=== PATIENT | female | born 1990 | race Caucasian/White ===

== ENCOUNTER 2021-04-21 09:00 | Outpatient (CLI) | payer MEDICAID, SELFPAY ==
[2021-04-21] VITALS (40 sets, daily range): BP systolic 85–208; BP diastolic 49–133; PULSE 71–117; RESP 17–18; TEMP 36.2–36.9; O2SAT 89–100; BMI 42.0
--- NOTE | 2021-04-21 09:27 | US_ITS ---
WS: [id number] ULTRASOUND OB LIMITED TECHNIQUE: Limited ultrasound examination of the fetus. CLINICAL INFORMATION: no FHT COMPARISON: None. FINDINGS: No heart tones detected. Single interuterine gestation. presentation is cephalic Placental location is posterior. Placenta grade: 2 heart rate 0 BPM. Anatomy: BDP: 9.0 cm = 36w2d HC: 32.4 cm = 36w4d AC: 29.1 cm = 33w1d FEMUR LENGTH: 6.7 cm = 34w4d Estimated weight: 2364 g EGA by ultrasound: 35w1d AMEENA by ultrasound: 05/25/2021 US/US OB limited [id number] IMPRESSION: 1. No heart tones detected. 2. Paucity of amniotic fluid. 3. Cervix is unable to be imaged. 4. Posterior placenta with cephalic presentation. Gas Station Attendant discussed preliminary results with the OB nurse at the time of exam ination.
[2021-04-21] MEDS: dextrose 5%-lactated ringers 1,000 ML 125 ML IV (10:51)
[2021-04-21 10:59] LABS: Basophils % 0.2 %; Eosinophils # 0.1 10^3/uL (0.0-0.8); Eosinophils % 0.6 %; Hematocrit 32.6 % (37.0-47.0); Hemoglobin 10.1 g/dL (11.5-15.3); Lymphocytes # 1.5 10^3/uL (0.8-4.8); Mean Corpuscular Hemoglobin 26.6 pg (28.0-34.0); Mean Corpuscular Volume 85.8 fL (81-99); Monocytes # 0.8 10^3/uL (0.2-0.9); Monocytes % 6.6 %; Neutrophils # 10.13 10^3/uL (1.8-7.7); Neutrophils % 80.2 %; Nucleated Red Blood Cells % 0.2 %; Platelet Count 211 10^3/cmm (130-400); Red Cell Distribution Width 14.1 % (12.1-15.1); White Blood Count 12.6 10^3/uL (4.0-10.0)
[2021-04-21] MEDS: miSOPROStol 200 mcg Tablet VAGINAL (10:59)
[2021-04-21] MEDS: fentaNYL 50 mcg/mL INJ 2mL IVP (10:59)
[2021-04-21] MEDS: lactated ringers 1,000 ML 999 ML IV (12:03)
[2021-04-21] MEDS: oxytocin 30 UNIT/500 ML BAG IV (13:00)
--- NOTE | 2021-04-21 13:20 | P.ANESASSM_ITS ---
Pre-Anesthetic Assessment Pre-Anesthetic Assessment: Height/Weight: Height 1.7 m Weight 121.563 kg Pulse Resp BP Pulse Ox 73 18 85/49 100 04/21/21 13:18 04/21/21 10:59 04/21/21 13:18 04/21/21 12:33 Was Beta Canelo taken within 24 hours: N/A Was Clonidine taken within 24 hours: N/A Social: Social History: No alcohol and No tobacco Exam: Pre-Anes Outpt Exam: alert, oriented x 3, clear to auscultation bilaterally and regular rate & rhythm Airway: Submandibular: WNL Cervical ROM: WNL MP: 2 Dentition: Full Metabolic: Metabolic: Morbid obesity Anesthetic Plan: ASA status: 2 Anesthesia: Regional (specify below) (labor epidural) Risk of > 500 ml blood loss (7ml/kg in children): No Meds/Allergies Current Medications: Current Medications Generic Name Dose Route Start Last Admin Trade Name Freq PRN Reason Stop Dose Admin Fentanyl 25 - 100 mcg 04/21/21 10:46 04/21/21 10:59 Fentanyl 50 Mcg/ Ml Inj 2ml IVP 50 mcg Q1H PRN Administration SEVERE PAIN Dextrose/Lactated Ringer's 1,000 mls @ 125 m ls/hr 04/21/21 10:30 04/21/21 10:51 Dextrose 5%-Lact ated Ringers IV 125 mls/hr .Q8H BI Administration Ropivacaine 200 mg in 100 mls @ 13 mls/hr 04/21/21 11:45 04/21/21 12:03 Naropin Premix EPIDURAL 13 mls/hr .Q7H42M BI Administration Lactated Ringer's 1,000 mls @ 999 m ls/hr 04/21/21 11:44 04/21/21 12:03 Lactated Ringers IV 999 mls/hr .Q1H1M PRN Administration See label comment s Oxytocin 30 unit in 500 ml s @ 1 mls/hr 04/21/21 13:00 04/21/21 13:00 Pitocin IV 2 milliunit/min .Q24H BI 2 mls/hr Administration Protocol 1 MILLIUNIT/MIN PFSH Anesthesia Female Reproductive History: : 4 Data Anesthesia CBC & Chem 7: 04/21/21 10:30 Other Labs: Laboratory Results - last 48 hr 04/21/21 10:30 WBC 12.6 H RBC 3.80 L Hgb 10.1 L Hct 32.6 L MCV 85.8 MCH 26.6 L MCHC 31.0 RDW 14.1 Plt Count 211 MPV 10.0 Neut % (Auto) 80.2 Lymph % (Auto) 12.0 [place] % (Auto) 6.6 Eos % (Auto) 0.6 Baso % (Auto) 0.2 Neut # (Auto) 10.13 H Lymph # (Auto) 1.5 [place] # (Auto) 0.8 Eos # (Auto) 0.1 Baso # (Auto) 0.0 Nucleated RBC % (auto) 0.2 Nucleated RBCs # 0.0 Cardiac Studies: No Data to Display
--- NOTE | 2021-04-21 13:20 | ANES.PROC ---
Anesthesia Procedures Procedure/Date: 04/21/21 Epidural: Time Out Performed: Yes Consents Signed: Procedure Consent Consent: requested by attending/covering physician, from patient, risks and benefits reviewed and patient agrees to proceed Lumbar Level: L3-L4 Epidural position: sitting Epidural procedure: sterile prep of area, 1% lidocaine to numb the area, 18 g needle, neg for paresthesia, test dose given, 1.5% xylocaine 1:200k epi, placed PCEA, sterile dressing applied and 0.2% Ropiavacaine @ mls/hr (13) Additional Comments: RAMÓN at 6cm, cath at 11cm. 5mls 2% lido PF bolused.
[2021-04-21] MEDS: ondansetron 2 mg/ML SDV 2 mL 4 MG IVP (13:21)
--- NOTE | 2021-04-21 13:50 | PC.NURSE ---
2nd IV STARTED IN LEFT FOREARM WITH #20 JELCO.
--- NOTE | 2021-04-21 14:18 | P.PCNOB_ITS ---
Delivery Note: Date of delivery: April 21, 2021 this 30-year-old female at approximately 36 weeks gestation came in this morning with cramping and bleeding. She was found to have no heart tones and no movement. She actually had been seen yesterday for an ultrasound which was read as negative and approximately 36 weeks gestation. A full ultrasound demonstrated no obvious abruption or other sign of problems. However, the placenta was posterior and difficult to tell for sure. She did have some moderate bleeding throughout the labor process. After supination of benefits and risks, the patient was given Pitocin intravenously for induction. She quickly dilated to complete cervical dilatation and delivered a male with a very tight nuchal cord. There were no abnormalities noted on examination of the infant except for the tight cord. The infant had blanching but no peeling of skin. Upon delivery of the placenta however there was large clots on the underside of the placenta indicating a probable abruption. I strongly suspect that this was the cause of the demise. The patient will be monitored for 2 to 3 hours. If she is not bleeding heavily and is ambulating well, she will be allowed to be discharged home this evening if she desires. Pre-Delivery Course: This patient had a very late entry into care. As her periods are very irregular she was unsure that she was until recently. She saw this physician 2 weeks ago for initial visit and as she was felt to be further along than she felt she was by dates and ultrasound was ordered. This was performed yesterday with no abnormal findings. Will check her blood type and antibody screen and provide RhoGam if necessary. Delivery: Spontaneous vaginal delivery Post-Delivery Status: Patient is not actively bleeding at this time and appears to be doing well. She is presently holding the baby and will be planning on proper burial. Will reevaluate later this afternoon and probably discharge patient home if she is doing well and she desires to be discharged home. A&P Assessment and plan (1) demise > 22 weeks, delivered, current hospitalization: It is suspected that the demise was secondary to acute placental abruption. Status: Acute (2) Spontaneous vaginal delivery: The patient delivered by vaginal delivery without problems using epidural anesthesia. There was no lacerations and no other problems at this time. She will be followed for routine care and she wishes to wait to go home until morning. Status: Acute Coding Level of Care Code Acute Brewer Helper for Chg Fwd Diagnoses demise > 22 weeks, delivered, current hospitalization O36.4XX0 Spontaneous vaginal delivery O80
[2021-04-21] MEDS: docusate sodium 100 mg Capsule PO (17:53)
[2021-04-21] MEDS: ibuprofen 800 mg tablet PO (18:02)
[2021-04-21] MEDS: HYDROcodone-acetaminophen 5-325 mg Tablet PO (18:03)
== END 2021-04-21 20:48 | disposition home or self-care (01) ==
LOC: OPOB 09:04 → OBGYN 09:05
PROVIDERS: Visit Provider Family Medicine
DX: O36.4XX0 Maternal care for intrauterine death, not applicable or unspecified (principal); Z3A.36 36 weeks gestation of pregnancy; Z37.1 Single stillbirth; O69.81X0 Labor and delivery complicated by cord around neck, without compression, not applicable or unspecified
CPT/HCPCS: 36415; 51702; 59409; 76815; 85025; 88307; 96374; 96375; 99211; J2405; J2795; J3010

== ENCOUNTER → 2023-04-22 16:00 | Outpatient (BNVA) | payer MEDICAID, SELFPAY | PROVIDERS: Visit Provider Obstetrics & Gynecology | DX: Z30.09 Encounter for other general counseling and advice on contraception (principal); N92.6 Irregular menstruation, unspecified | CPT/HCPCS: 81025 ==

== ENCOUNTER 2023-04-24 05:39 | Day surgery (SDC) | payer MEDICAID, SELFPAY ==
[2023-04-23 13:20] VITALS: BMI 35.4
--- NOTE | 2023-04-23 13:41 | P.ANESASSM_ITS ---
Pre-Anesthetic Assessment Height/Weight: Height 1.7 m Weight 102.512 kg Operation Date: 04/24/23 07:00 Proposed Procedures p Laparoscopic bilateral salpingectomy 69550,Z30.2(Bilateral) - Chauncey Franz MD Familial anesthetic complications: none Social Tobacco and No alcohol Exam alert, oriented x 3, clear to auscultation bilaterally and regular rate & rhythm Airway Mallampati: Class III Dentition: full GI Gastroesophageal Reflux Disease Metabolic Morbid Obesity Anesthetic Plan ASA status: 2 Anesthesia: General Risk of > 500 ml blood loss (7ml/kg in children): No Medications/Allergies Home Medications Medication Instructions Recorded Confirmed Last Taken Type alprazolam 0.5 mg tablet 0.5 mg PO DAILY 03/12/23 04/23/23 1 Day Ago History ~04/22/23 omeprazole 20 mg capsule,delayed 20 mg PO DAILY 03/12/23 04/23/23 1 Day Ago History release ~04/22/23 sertraline 100 mg tablet 100 mg PO DAILY 03/12/23 04/23/23 1 Day Ago History ~04/22/23 Allergies Allergy/AdvReac Type Severity Reaction Status Date / Time No Known Allergies Allergy Verified 04/23/23 13:18 [facility] Anesthesia Family History Denies family history of Colon cancer Ovarian cancer Diabetes Heart disease Hypercholesteremia Breast cancer Hypertension Uterine cancer Thyroid disease Stroke Data Anesthesia 04/23/23 13:20 04/23/23 13:20 Cardiac Studies: No Data to Display
[2023-04-23 13:43] LABS: Basophils % 0.7 %; Eosinophils # 0.3 10^3/uL (0.0-0.8); Eosinophils % 6.3 %; Hematocrit 32.5 % (37.0-47.0); Hemoglobin 9.1 g/dL (11.5-15.3); Lymphocytes # 1.4 10^3/uL (0.8-4.8); Lymphocytes % 33.3 %; Mean Corpuscular Volume 74.9 fl (81-99); Mean Platelet Volume 9.3 fL (7.4-10.4); Monocytes # 0.4 10^3/uL (0.2-0.9); Monocytes % 8.2 %; Neutrophils # 2.18 10^3/uL (1.8-7.7); Neutrophils % 51.3 %; Nucleated Red Blood Cells % 0 %; Platelet Count 207 10^3/cmm (130-400); Red Blood Count 4.34 10^6/uL (4.1-5.3); Red Cell Distribution Width 16.8 % (12.1-15.1); White Blood Count 4.3 10^3/uL (4.0-10.0)
[2023-04-23 13:47] LABS: OR HCG Qualitative Urine Negative (Negative)
[2023-04-23 14:01] LABS: Alanine Aminotransferase 17 U/L (0-33); Albumin Level 4.4 g/dL (3.5-5.2); Alkaline Phosphatase 93 U/L (35-105); Anion Gap 13.9 (5-19); Aspartate Amino Transferase 23 U/L (0-32); Blood Urea Nitrogen 9 mg/dL (6-20); Calcium 8.9 mg/dL (8.5-10.5); Carbon Dioxide 24 mmol/L (22-29); Chloride 103 mmol/L (98-107); Globulin 3.1 g/dL (1.3-4.6); Glomerular Filtration Rate 96.4 mL/min (90-130); Glucose 113 mg/dL (65-115); Osmolality Calculated 283 mOsm/kg (285-295); Potassium 3.9 mmol/L (3.5-5.1); Sodium 137 mmol/L (136-145); Total Bilirubin 0.9 mg/dL (0.15-1.2); Total Protein 7.5 g/dL (6.6-8.7)
[2023-04-23 14:17] LABS: Add Urine Microscopic? NO; Charge for UA Resulting for Rev
[2023-04-23 14:24] LABS: Specific Gravity, Urine 1.025 (1.005-1.030); Urine Appearance Clear (CLEAR); Urine Color Yellow (Yellow); pH Urine 6 (5-7)
[2023-04-23 14:25] LABS: Bilirubin Urine Neg (Negative); Blood Urine Neg (Negative); Glucose Urine UA Norm (Normal); Ketones Urine Negative (Negative); Leukocyte Esterase Urine Negative (Negative); Nitrate Urine Negative (Negative); Protein Urine Neg (Negative); Urobilinogen Urine 1 mg/dL (Negative)
[2023-04-24] VITALS (11 sets, daily range): BP systolic 106–146; BP diastolic 63–99; PULSE 80–91; RESP 15–21; TEMP 36.2–36.3; O2SAT 90–97
[2023-04-24] MEDS: scopolamine 1.5 Patch 1 PATCH TRANSDERMA (06:13)
[2023-04-24] MEDS: sodium chloride 0.9% 500 ML IV (06:14)
[2023-04-24] MEDS: sodium chloride 0.9% 1,000 ML 30 ML IV (06:14)
--- NOTE | 2023-04-24 06:38 | P.ANESUD_ITS ---
Pre-Anesthetic Update Pre-Anesthetic Assessment: Date of Surgery/Procedure: 04/24/23 Preop Miley gnosis: Desire permanent sterilization Proposed Procedure: Operation Date: 04/24/23 07:00 Proposed Procedures p Laparoscopic bilateral salpingectomy 43866,Z30.2(Bilateral) - Chauncey Franz MD Any changes to Pre-Anesthetic Assessment?: No Last Intake: Intake Last Liquid Date 04/23/23 Last Liquid Time 23:45 Last Solid Date 04/23/23 Last Solid Time 23:45 Labs Last 48hrs: Short CBC 04/23/23 Range/Units 13:20 WBC 4.3 (4.0-10.0) 10^3/ uL Hgb 9.1 L (11.5-15.3) g/dL Hct 32.5 L (37.0-47.0) % MCV 74.9 L (81-99) fl Plt Count 207 (130-400) 10^3/c mm Neut % (Auto) 51.3 % Neut # (Auto) 2.18 (1.8-7.7) 10^3/u L BMP 04/23/23 13:20 Sodium 137 Potassium 3.9 Chloride 103 Carbon Dioxide 24 BUN 9 Creatinine 0.7 Glucose 113 Calcium 8.9 Liver Function 04/23/23 Range/Units 13:20 Total Bilirubin 0.9 (0.15-1.2) mg/dL AST 23 (0-32) U/L ALT 17 (0-33) U/L Alkaline Phosphata se 93 (35-105) U/L Albumin 4.4 (3.5-5.2) g/dL Urine 04/23/23 Range/Units 13:35 Urine Color Yellow (Yellow) Urine Appearance Clear (CLEAR) Urine pH 6 (5-7) Ur Specific Gravit y 1.025 (1.005-1.030) Urine Protein Neg (Negative) Urine Glucose (UA) Norm (Normal) Urine Ketones Negative (Negative) Urine Nitrate Negative (Negative) Urine Bilirubin Neg (Negative) Ur Leukocyte Kareen ase Negative (Negative) Blood Bank 04/23/23 13:20 Blood Type O Positive Rho(D) Type Positive Antibody Screen Negative Vitals: Temperature 97.3 F L 04/24/23 06:07 Temperature Source Temporal Artery S can 04/24/23 06:07 Pulse Rate 80 04/24/23 06:07 Respiratory Rate 16 04/24/23 06:07 Blood Pressure 106/63 04/24/23 06:07 Blood Pressure Caroline n 77 04/24/23 06:07 Pulse Oximetry 97 04/24/23 06:07 Oxygen Delivery Me thod Room Air 04/24/23 06:08 Exam: Pre-Anes Outpt Exam: alert, oriented x 3, clear to auscultation bilaterally and regular rate & rhythm Cardiac Studies: No Data to Display
[2023-04-24 06:42] LABS: OR HCG Qualitative Urine Negative (Negative)
--- NOTE | 2023-04-24 06:52 | W.PM.OPSUD ---
Surgery/Procedure H&P Update DATE OF PROCEDURE: April 24, 2023 DATE H&P PERFORMED: 04/22/23 H&P UPDATE INFORMATION: I have reviewed H&P completed within last 30 days, I have examined patient prior to procedure and No changes to prior documentation PREOP DIAGNOSIS: Desire permanent sterilization PLANNED PROCEDURE: Operation Date: 04/24/23 07:00 Proposed Procedures p Laparoscopic bilateral salpingectomy 23224,Z30.2(Bilateral) - Chauncey Franz MD
[2023-04-24] MEDS: ceFAZolin 2,000 MG in sodium chloride 0.9% (plus) 50 ML 100 MG IV (07:00)
--- NOTE | 2023-04-24 08:05 | P.OP_ITS ---
Operative Report Date of procedure: April 24, 2023 Pre-op diagnosis: Desire permanent sterilization. Post-op diagnosis: Same as above. Mild endometriosis Post-op findings: 4 small lesions arteriosus on the left round ligament Procedure done: Laparoscopic bilateral salpingectomy. Fulguration of endometriosis lesions. Specimens removed/disposition: Left and right fallopian tube Surgeon: Chauncey Frnaz MD Estimated blood loss (mL): 5 IV fluids (mL): 500 Urine output (mL): 50 Complications: None Findings: Mild endometriosis Procedure: After informed consent, the patient was taken to the operating room where general anesthesia was administered. She was placed in the dorsal lithotomy position and prepped and draped in sterile fashion. Pre-Procedure Time-Out verifying the correct patient identity, correct procedure verified with consent, correct site and side, correct patient position, availability of correct implants and any special equipment or requirements was performed and acknowledge by the OR team. The patient was examined under anesthesia and found to have a normal uterus with normal adnexa. A weighted speculum was placed in the vagina, and the anterior lip of cervix was grasped with the single toothed tenaculum. A uterine manipulator was advanced into the endocervical canal and uterus. The tenaculum was removed after uterine manipulator was secured. The speculum was removed from the vagina. An intraumbilical incision was made with a scalpel. While tenting up on the abdomen, a Verres needle was admitted into the intra-abdominal cavity. A saline drop test was performed and noted to be within normal limits. Pneumoperitoneum was attained with 4 liters of carbon dioxide. The Verres needle was removed. A 5 mm Opitc view trocar and sleeve were admitted into the abdomen and laparoscopic confirmation of location was achieved. A second incision was made 3 cm above the symphysis pubis, and a 5 mm trocar sleeves were admitted into the abdomen under direct laparoscopic visualization without complication. A survey revealed normal abdominal anatomy with the exception of string adhesion to the right lower anterior abdominal wall. A 5 mm blunt probe was advanced through the second trocar sleeve, and light manipulation of ovaries and uterus to assess the posterior aspects was performed. The pelvic survey shows normal uterus, left and right adnexa. The left round ligament noted with 4 endometriosis lesions. The lesions where grasped with the Enseal device and where fulgurated. The patient was placed into Trendelenburg position. The fallopian tubes were i nspected bilaterally and the fimbriated ends of the fallopian tubes were visualized bilaterally. Attention was then directed to the right side. The fallopian tube and mesosalpinx were grasped and the underlying mesosalpinx was cauterized and cut using the Enseal device. Serial cauterization and cutting was used to separate the fallopian tube from the underlying mesosalpinx until it could be amputated cutting it approximated 2 cm from the cornua. Attention was then turned to the contralateral fallopian tube, which was removed in similar fashion. Both specimens were removed through the trocar and sent to pathology. The instruments were removed. The suprapubic trocar port was removed under direct visualization insuring good hemostasis. The carbon dioxide was allowed to escape from the abdomen. The intraumbilical trocar sleeve was withdrawn under visualization with laparoscope in the sleeve to insure hemostasis. The skin incisions were closed with 3-O Monocryl subcuticular stich and Guillermo mabond. The instruments were removed from the vagina, and excellent hemostasis was noted. The patient tolerated the procedure well, and sponge, lap and needle count were correct times two. The patient was taken to the recovery room in good condition.
--- NOTE | 2023-04-24 13:22 | ANE.PACU2 ---
Inpatient post-anesthesia follow up: Airway intact: Yes Vital signs: Temperature 97.2 F Pulse Rate 91 Respiratory Rate 16 Blood Pressure 137/99 Pulse Oximetry 95 Oxygen Delivery Me thod Room Air Oxygen Flow Rate 6 Fraction of Inspir ed Oxygen Hydration adequate: Yes Nausea and vomiting: Yes Pain level: 1 Mental status: Baseline
== END 2023-04-24 09:46 | disposition home or self-care (01) ==
PROVIDERS: Anesthesiology; PCP Family Medicine; Visit Provider Obstetrics & Gynecology
PROC: (CPT 58661; principal; 2023-04-24 07:00)
DX: Z30.2 Encounter for sterilization (principal); K21.9 Gastro-esophageal reflux disease without esophagitis; E66.01 Morbid (severe) obesity due to excess calories; Z68.35 Body mass index [BMI] 35.0-35.9, adult
CPT/HCPCS: 58661; 58662; 80053; 81003; 81025; 84703; 85025; 86850; 86900; 88302; J0690; J1100; J1200; J2250; J2405; J2704; J2710; J3010; J3490; J7030; J7040

== ENCOUNTER 2023-06-16 11:57 | Emergency (ER) | payer MEDICAID, SELFPAY ==
[2023-06-16 12:39] VITALS: BP 119/86; PULSE 100; RESP 12; TEMP 36.8; O2SAT 99; BMI 29.7
--- NOTE | 2023-06-16 12:44 | ED_ITS ---
HPI - Abdominal Pain General: Chief Complaint: Abdominal Pain Stated Complaint: severe stomach ache Time Seen by Provider: 06/16/23 12:44 History of Present Illness: Ms Adames is a 32-year-old lady presenting the emergency department for epigastric abdominal pain. Describes onset of symptoms subacute without known specific provoking event 3 days ago. Initially just had constant pain however starting last night had worsening pain and nausea vomiting as well as diarrhea. Denies fevers. Worse with eating. Moderate to severe intensity. No other specific changes in health, exacerbating, or alleviating factors identified. Onset (ago): day(s) Location: Epigastric Radiation: none Migration to: no migration Exacerbating factors: eating Review of Systems General: Reports: 10 or more systems reviewed and unremarkable except in HPI and below PFSH ED PFSH: Medical History Mild endometriosis (~04/24/23) Noted on the left round ligament at the time of laparoscopy for sterilization; incidental finding- Albino No pertinent past medical history neghx: htn,dm,thyroid,dvt/pe PCP: Dr. Nascimento Surgical History History of laparoscopy (~04/24/23) bilateral salpingectomy- performed by Dr. Franz at [facility]; mild endometriosis noted and treated. Family History Denies family history of Colon cancer Ovarian cancer Diabetes Heart disease Hypercholesteremia Breast cancer Hypertension Uterine cancer Thyroid disease Stroke Physical Exam Const: COMMON NORMALS: alert GENERAL APPEARANCE: cooperative and well developed HENMT: COMMON NORMALS: normocephalic and atraumatic HEAD & SCALP: normocephalic and atraumatic Eye: COMMON NORMALS: conjunctivae normal CONJUNCTIVA: Yes conjunctivae normal SCLERA: sclerae normal Neck/C-Spine: COMMON NORMALS: supple GENERAL: Yes trachea midline Resp: COMMON NORMALS: normal respiratory effort and clear to auscultation bilaterally EFFORT & INSPECTION: Yes able to speak in complete sentences AUSCULTATION: clear to auscultation bilaterally Cardio: COMMON NORMALS: regular rate and regular rhythm RATE: regular rate RHYTHM: regular rhythm GI: COMMON NORMALS: Soft to palpation PALPATION: Yes Soft to palpation, Yes Tenderness to palpation present (GI), No Guarding due to palpation present (GI) and No Rigid due to palpation Extremity: GENERAL: Yes normal exam except as noted and No edema Neuro: COMMON NORMALS: moves all extremities SENSORIUM/ORIENTATION: Yes alert and No Orientation impaired Psych: COMMON NORMALS: mental status grossly normal and Normal thought process present THOUGHT PROCESS: Normal thought process present Course Vital Signs: Vital signs: Vital Signs Temperature 98.2 F 06/16/23 12:39 Pulse Rate 85 06/16/23 15:23 Respiratory Rate 18 06/16/23 14:37 Blood Pressure 115/83 06/16/23 14:37 Pulse Oximetry 98 06/16/23 15:23 Oxygen Delivery Me thod Room Air 06/16/23 14:37 MDM - Abdominal Pain Medical Decision Making 32-year-old lady presenting with epigastric abdominal pain. Exam as above. Nontoxic. Abdominal tenderness without evidence of acute surgical abdomen. Labs with no leukocytosis, microcytic anemia. Metabolic panel with mild evidence of dehydration. Lipase is somewhat elevated. No convincing evidence of UTI though this will be sent for culture. Gallbladder ultrasound with minimal gallbladder sludge however no evidence of cholecystitis. Patient improved with treatment during ED course of IV fluids, antiemetic, Pepcid, analgesia. She is able to tolerate p.o. intake. The results of ED evaluation were discussed with the patient including pr escriptions and/or symptomatic cares (if applicable) including appropriate and responsible use, followup plan, and return precautions. The patient verbalized understanding and felt safe for discharge. Medical Records I reviewed the patient's medical records. Lab Data I reviewed the patient's lab results. 06/16/23 12:57 06/16/23 12:57 Labs/Radiology: Radiology Impressions Gallbladder Ultrasound 06/16/23 13:44 IMPRESSION: Suggestion of minimal gallbladder sludge and exam is otherwise unremarkable. Laboratory Results WBC 6.5 10^3/uL (4.0-10.0) 06/16/23 12:57 RBC 4.05 10^6/uL (4.1-5.3) L 06/16/23 12:57 Hgb 8.2 g/dL (11.5-15.3) L 06/16/23 12:57 Hct 29.0 % (37.0-47.0) L 06/16/23 12:57 MCV 71.6 fl (81-99) L 06/16/23 12:57 MCH 20.2 pg (28.0-34.0) L 06/16/23 12:57 MCHC 28.3 g/dL (30.0-36.0) L 06/16/23 12:57 RDW 17.0 % (12.1-15.1) H 06/16/23 12:57 Plt Count 263 10^3/cmm (130-400) 06/16/23 12:57 MPV 9.3 fL (7.4-10.4) 06/16/23 12:57 Neut % (Auto) 67.8 % 06/16/23 12:57 Lymph % (Auto) 19.4 % 06/16/23 12:57 [place] % (Auto) 7.7 % 06/16/23 12:57 Eos % (Auto) 4.3 % 06/16/23 12:57 Baso % (Auto) 0.5 % 06/16/23 12:57 Neut # (Auto) 4.42 10^3/uL (1.8-7.7) 06/16/23 12:57 Lymph # (Auto) 1.3 10^3/uL (0.8-4.8) 06/16/23 12:57 [place] # (Auto) 0.5 10^3/uL (0.2-0.9) 06/16/23 12:57 Eos # (Auto) 0.3 10^3/uL (0.0-0.8) 06/16/23 12:57 Baso # (Auto) 0.0 10^3/uL (0.0-0.1) 06/16/23 12:57 Nucleated RBC % (auto) 0 % 06/16/23 12:57 Nucleated RBCs # 0.0 /100WBC 06/16/23 12:57 Sodium 134 mmol/L (136-145) L 06/16/23 12:57 Potassium 4.1 mmol/L (3.5-5.1) 06/16/23 12:57 Chloride 99 mmol/L (98-107) 06/16/23 12:57 Carbon Dioxide 23 mmol/L (22-29) 06/16/23 12:57 Anion Gap 16.1 (5-19) 06/16/23 12:57 BUN 6 mg/dL (6-20) 06/16/23 12:57 Creatinine 0.7 mg/dL (0.5-0.9) 06/16/23 12:57 GFR Calculation 96.4 mL/min (90-130) 06/16/23 12:57 Glucose 107 mg/dL (65-115) 06/16/23 12:57 Calculated Osmolality 276 mOsm/kg (285-295) L 06/16/23 12:57 Calcium 8.5 mg/dL (8.5-10.5) 06/16/23 12:57 Total Bilirubin 0.3 mg/dL (0.15-1.2) 06/16/23 12:57 AST 17 U/L (0-32) 06/16/23 12:57 ALT 14 U/L (0-33) 06/16/23 12:57 Alkaline Phosphatase 104 U/L (35-105) 06/16/23 12:57 Total Protein 6.4 g/dL (6.6-8.7) L 06/16/23 12:57 Albumin 3.0 g/dL (3.5-5.2) L 06/16/23 12:57 Globulin 3.4 g/dL (1.3-4.6) 06/16/23 12:57 Lipase 169 U/L (13-60) H 06/16/23 12:57 Urine Color Yellow (Yellow) 06/16/23 13:03 Urine Appearance Sl hazy (CLEAR) A 06/16/23 13:03 Urine pH 5 (5-7) 06/16/23 13:03 Ur Specific [place] 1.020 (1.005-1.030) 06/16/23 13:03 Urine Protein Trace (Negative) 06/16/23 13:03 Urine Glucose (UA) Norm (Normal) 06/16/23 13:03 Urine Ketones 1+ (Negative) H 06/16/23 13:03 Urine Blood Neg (Negative) 06/16/23 13:03 Urine Nitrate Negative (Negative) 06/16/23 13:03 Urine Bilirubin Neg (Negative) 06/16/23 13:03 Urine Urobilinogen Norm mg/dL (Negative) 06/16/23 13:03 Ur Leukocyte Esterase Trace (Negative) H 06/16/23 13:03 Urine RBC None /hpf (0-2) 06/16/23 13:03 Urine WBC 0-4 /hpf (0-5) H 06/16/23 13:03 Ur Squamous Epith Cells 0-4 /hpf (0-5) H 06/16/23 13:03 Amorphous Sediment Not Reportable 06/16/23 13:03 Urine Bacteria 2+ /hpf (NONE) H 06/16/23 13:03 Urine Mucus 2+ /hpf 06/16/23 13:03 Discharge Plan Discharge Patient Disposition: Home Clinical Impression: Pancreatitis, Microcytic anemia Condition: Stable Prescriptions: New ondansetron 4 mg tablet,disintegrating 4 mg PO Q8H PRN (Reason: nausea and vomiting) Qty: 15 0RF oxycodone 5 mg tablet 5 mg PO Q4H PRN (Reason: pain) Qty: 10 0RF No Action sertraline 100 mg tablet 100 mg PO DAILY omeprazole 20 mg capsule,delayed release(DR/EC) 20 mg PO DAILY alprazolam 0.5 mg tablet 0.5 mg PO DAILY ibuprofen 800 mg tablet 800 mg PO TID PRN (Reason: pain) Qty: 60 0RF prednisone 20 mg tablet 20 mg PO BID 7 Days Qty: 14 0RF ciprofloxacin HCl 500 mg tablet 500 mg PO BID Qty: 14 0RF metronidazole 500 mg tablet 500 mg PO Q8H 7 Days Qty: 21 0RF hydrocodone-acetaminophen 5-325 mg tablet 1 tab PO Q6H PRN (Reason: pain (scale score 7-10)) Qty: 14 0RF ondansetron 4 mg tablet,disintegrating 4 mg PO Q8H PRN (Reason: nausea and vomiting) Qty: 10 0RF Discharge Orders: Discharge ED (Routine); Ordered 06/16/23 Ordered By: Davian Sanders Referrals: Kendrick Nascimento MD [Primary Care Provider] - Discharge Diet: Advance as tolerated and Clear Liquid Discharge Activity: Increase activity as tolerated Patient Instructions: Pancreatitis (ED), Anemia (ED), Opioid Safety Activity Restrictions/Additional Instructions: Thank you for visiting the emergency department. You were seen and evaluated for abdominal pain. The most likely cause of your symptoms is pancreatitis. We are pleased that you had improvement with treatment in the emergency department. As discussed, treatment is supportive. I will prescribe oxycodone, use this cautiously as it is an opioid. Additionally I will prescribe antinausea medication. You may use [id number] medications such as acetaminophen and ibuprofen for pain however please do not exceed the daily recommended dosage as listed on the packaging and please keep in mind that many namebrand medications contain the same active ingredients. Please avoid these medications if previously instructed to do so by another physician due to other underlying medical condition. Follow-up with your primary care provider. Return for uncontrolled symptoms, inability to tolerate medication, fevers, blood in vomit or stool, or anything else that you are concerned about and feel needs emergency department evaluation. Coding Level of Care Code ED Orthodontic Technician Assistant for Syd Ramirez
[2023-06-16 12:49] VITALS: BP 129/67; PULSE 88; RESP 18; O2SAT 98
[2023-06-16 13:07] LABS: Basophils % 0.5 %; Eosinophils # 0.3 10^3/uL (0.0-0.8); Eosinophils % 4.3 %; Hemoglobin 8.2 g/dL (11.5-15.3); Lymphocytes # 1.3 10^3/uL (0.8-4.8); Lymphocytes % 19.4 %; Mean Corpuscular HGB Conc 28.3 g/dL (30.0-36.0); Mean Corpuscular Hemoglobin 20.2 pg (28.0-34.0); Mean Corpuscular Volume 71.6 fl (81-99); Mean Platelet Volume 9.3 fL (7.4-10.4); Monocytes # 0.5 10^3/uL (0.2-0.9); Monocytes % 7.7 %; Neutrophils # 4.42 10^3/uL (1.8-7.7); Neutrophils % 67.8 %; Nucleated Red Blood Cells % 0 %; Platelet Count 263 10^3/cmm (130-400); Red Blood Count 4.05 10^6/uL (4.1-5.3); White Blood Count 6.5 10^3/uL (4.0-10.0)
[2023-06-16] MEDS: ondansetron 2 mg/ML SDV 2 mL 4 MG IVP (13:20)
[2023-06-16] MEDS: lactated ringers 1,000 ML 999 ML IV (13:20)
[2023-06-16] MEDS: morphine 4 mg/mL SDV 1 mL IVP (13:21)
[2023-06-16] MEDS: famotidine 20 mg/2 mL INJ 40 MG IVP (13:21)
[2023-06-16 13:23] VITALS: BP 120/90; PULSE 91; RESP 18; O2SAT 100
[2023-06-16 13:33] LABS: Glucose Urine UA Norm (Normal); Ketones Urine 1+ (Negative); Protein Urine Trace (Negative); Urine Appearance SL Hazy (CLEAR); Urine Color Yellow (Yellow); pH Urine 5 (5-7)
[2023-06-16 13:34] LABS: Add Urine Microscopic? YES; Bilirubin Urine Neg (Negative); Blood Urine Neg (Negative); Leukocyte Esterase Urine Trace (Negative); Nitrate Urine Negative (Negative); Urobilinogen Urine Norm (Negative)
[2023-06-16 13:35] LABS: Squamous Epithelial Cell Urine 0-4 /hpf (0-5); WBC Urine 0-4 /hpf (0-5)
[2023-06-16 13:36] LABS: Bacteria Urine 2+ /hpf; Mucus Urine 2+ /hpf
[2023-06-16 13:37] LABS: Alanine Aminotransferase 14 U/L (0-33); Alkaline Phosphatase 104 U/L (35-105); Anion Gap 16.1 (5-19); Aspartate Amino Transferase 17 U/L (0-32); Blood Urea Nitrogen 6 mg/dL (6-20); Calcium 8.5 mg/dL (8.5-10.5); Carbon Dioxide 23 mmol/L (22-29); Chloride 99 mmol/L (98-107); Globulin 3.4 g/dL (1.3-4.6); Glomerular Filtration Rate 96.4 mL/min (90-130); Glucose 107 mg/dL (65-115); Lipase 169 U/L (13-60); Osmolality Calculated 276 mOsm/kg (285-295); Potassium 4.1 mmol/L (3.5-5.1); Sodium 134 mmol/L (136-145); Total Bilirubin 0.3 mg/dL (0.15-1.2); Total Protein 6.4 g/dL (6.6-8.7)
[2023-06-16 13:37] LABS: Add Urine Culture? Yes
--- NOTE | 2023-06-16 13:44 | USR_ITS ---
PROCEDURE INFORMATION: Exam: US Abdomen, Limited; Right Upper Quadrant Exam date and time: 06/16/2023 2:06 PM Age: 32 years old Clinical indication: Abdominal pain; Epigastric; Additional info: Epigastric pain TECHNIQUE: Imaging protocol: Real time ultrasound of the abdomen with image documentation. Limited exam focused on the right upper quadrant. COMPARISON: US OB limited [id number] 04/21/2021 9:58 AM FINDINGS: Liver: Normal. No masses. Hepatopetal portal venous flow. Liver measures 16.9 cm. Gallbladder: No gallstones. There is no gallbladder wall thickening. Minimal sludge. Biliary ducts: No stones within the visualized common bile duct. No dilation. Common bile duct measures 3.5 mm. Pancreas: Visualized pancreas is unremarkable. Right kidney: Normal. No mass. No hydronephrosis. Right kidney measures 10.4 x 4.7 x 4.7 cm. Inferior vena cava: Visualized aorta and inferior vena cava appear unremarkable. US/US gall bladder [id number] IMPRESSION: Suggestion of minimal gallbladder sludge and exam is otherwise unremarkable.
[2023-06-16 14:37] VITALS: BP 115/83; PULSE 92; RESP 18; O2SAT 97
[2023-06-16 15:23] VITALS: PULSE 85; O2SAT 98
== END 2023-06-16 15:24 | disposition home or self-care (01) ==
PROVIDERS: Emergency Provider Emergency Medicine; PCP Family Medicine
DX: K85.90 Acute pancreatitis without necrosis or infection, unspecified (principal); D50.9 Iron deficiency anemia, unspecified
CPT/HCPCS: 76705; 80053; 81001; 83690; 85025; 87086; 96361; 96374; 96375; 99284; J2270; J2405; J3490; J7120

== ENCOUNTER 2023-06-23 16:36 | Emergency (ER) | payer MEDICAID, SELFPAY ==
[2023-06-23 16:43] VITALS: BP 106/72; PULSE 131; RESP 16; TEMP 36.7; O2SAT 100; BMI 28.1
--- NOTE | 2023-06-23 17:29 | ED_ITS ---
HPI - Abdominal Pain General: Chief Complaint: Abdominal Pain Stated Complaint: weakness/abd pain Time Seen by Provider: 06/23/23 17:29 History of Present Illness: 32-year-old female comes in today with complaints of nausea and vomiting. Patient was seen about a week ago and was diagnosed with pancreatitis and it was also noticed patient has some sludge on her gallbladder. Patient appears unwell and in mild to moderate pain. Patient has a history of reflux and anxiety. Patient does have her gallbladder and reports no other abdominal surgeries. Patient reports poor appetite and difficulty holding food down. Associated Symptoms: Reports nausea and vomiting; Denies constipation and diarrhea Review of Systems General: Reports: 10 or more systems reviewed and unremarkable except in HPI and below GI: Reports: abdominal pain, nausea and vomiting; Denies: diarrhea or constipation : Denies: difficulty voiding Skin/Breast: Denies: rash PFSH ED PFSH: Medical History Mild endometriosis (~04/24/23) Noted on the left round ligament at the time of laparoscopy for sterilization; incidental finding- Osei No pertinent past medical history neghx: htn,dm,thyroid,dvt/pe PCP: Dr. Nascimento Surgical History History of laparoscopy (~04/24/23) bilateral salpingectomy- performed by Dr. Franz at [facility]; mild endometriosis noted and treated. Family History Denies family history of Colon cancer Ovarian cancer Diabetes Heart disease Hypercholesteremia Breast cancer Hypertension Uterine cancer Thyroid disease Stroke Physical Exam Const: COMMON NORMALS: alert HENMT: COMMON NORMALS: normocephalic HEAD & SCALP: normocephalic Neck/C-Spine: COMMON NORMALS: full ROM Chest: COMMONS NORMALS: normal inspection of the chest Resp: COMMON NORMALS: normal respiratory effort and clear to auscultation bilaterally AUSCULTATION: clear to auscultation bilaterally Cardio: COMMON NORMALS: regular rate and regular rhythm RATE: regular rate RHYTHM: regular rhythm GI: COMMON NORMALS: Soft to palpation PALPATION: Yes Soft to palpation and Yes Tenderness to palpation present (GI) (Generalized) Extremity: COMMON NORMALS: normal to inspection Neuro: SENSORIUM/ORIENTATION: Yes alert Skin: COMMON NORMALS: turgor normal GENERAL SKIN EXAM: turgor normal Course Vital Signs: Vital signs: Vital Signs Temperature 98.0 F 06/23/23 16:43 Pulse Rate 104 H 06/23/23 17:59 Respiratory Rate 16 06/23/23 17:59 Blood Pressure 105/70 06/23/23 17:59 Pulse Oximetry 98 06/23/23 17:59 Oxygen Delivery Me thod Room Air 06/23/23 17:59 MDM - Abdominal Pain Medical Decision Making 32-year-old female comes in today with complaints of persistent nausea and vomiting. Patient was diagnosed last week with pancreatitis. Review of the record noted a lipase of 160 and ultrasound of the gallbladder with noted sludge. Remainder of labs were unremarkable at that time. Exam today notes patient that appears unwell but not toxic. Abdomen soft with some mild tenderness. Bowel sounds are present. Skin is warm and dry. Oral mucosa slightly dry. Vital signs are normal except for some elevated pulse. Differential diagnosis includes but not limited to choledocholithiasis, pancreatitis, dehydration, cholelithiasis, cholecystitis, gastroenteritis. Laboratory values noted some elevation in white blood cells at 12,000, platelets of 597, hemoglobin was 8.1, sodium was 130, creatinine was 1.3, glucose was 159, bilirubin was 0.3, lipase was 90. No signs of biliary obstruction or severe pancreatitis was noted. CT scan was done for further evaluation of the abdomen and was noted patient had pancolitis. Pancolitis is probably what is causing patient's chronic anemia and recurrent abdominal pain, she probably has undiagnosed Crohn's or ulcerative colitis other autoimmune illness or celiac disease. Patient will be started on steroids and antibiotics and medications for pain and nausea. Patient needs to follow-up with with surgeon for further evaluation with colonoscopy and biopsy. Patient and mother both reported understanding of care plan and need for follow-up or return to the ER. Lab Data 06/23/23 17:40 06/23/23 17:40 Labs/Radiology: Radiology Impressions Abdomen/Pelvis CT 06/23/23 18:32 IMPRESSION: 1. Nonspecific pancolitis, as described above. 2. Additional findings, as above. Laboratory Results WBC 12.3 10^3/uL (4.0-10.0) H 06/23/23 17:40 RBC 4.06 10^6/uL (4.1-5.3) L 06/23/23 17:40 Hgb 8.1 g/dL (11.5-15.3) L 06/23/23 17:40 Hct 28.6 % (37.0-47.0) L 06/23/23 17:40 MCV 70.4 fl (81-99) L 06/23/23 17:40 MCH 20.0 pg (28.0-34.0) L 06/23/23 17:40 MCHC 28.3 g/dL (30.0-36.0) L 06/23/23 17:40 RDW 16.9 % (12.1-15.1) H 06/23/23 17:40 Plt Count 597 10^3/cmm (130-400) H 06/23/23 17:40 MPV 9.2 fL (7.4-10.4) 06/23/23 17:40 Neut % (Auto) 71.6 % 06/23/23 17:40 Lymph % (Auto) 16.5 % 06/23/23 17:40 [place] % (Auto) 8.6 % 06/23/23 17:40 Eos % (Auto) 1.5 % 06/23/23 17:40 Baso % (Auto) 0.7 % 06/23/23 17:40 Neut # (Auto) 8.78 10^3/uL (1.8-7.7) H 06/23/23 17:40 Lymph # (Auto) 2.0 10^3/uL (0.8-4.8) 06/23/23 17:40 [place] # (Auto) 1.1 10^3/uL (0.2-0.9) H 06/23/23 17:40 Eos # (Auto) 0.2 10^3/uL (0.0-0.8) 06/23/23 17:40 Baso # (Auto) 0.1 10^3/uL (0.0-0.1) 06/23/23 17:40 Nucleated RBC % (auto) 0.2 % 06/23/23 17:40 Nucleated RBCs # 0.0 /100WBC 06/23/23 17:40 Sodium 130 mmol/L (136-145) L 06/23/23 17:40 Potassium 3.6 mmol/L (3.5-5.1) 06/23/23 17:40 Chloride 93 mmol/L (98-107) L 06/23/23 17:40 Carbon Dioxide 24 mmol/L (22-29) 06/23/23 17:40 Anion Gap 16.6 (5-19) 06/23/23 17:40 BUN 9 mg/dL (6-20) 06/23/23 17:40 Creatinine 1.3 mg/dL (0.5-0.9) H 06/23/23 17:40 GFR Calculation 47.2 mL/min (90-130) L 06/23/23 17:40 Glucose 159 mg/dL (65-115) H 06/23/23 17:40 Calculated Osmolality 272 mOsm/kg (285-295) L 06/23/23 17:40 Calcium 8.2 mg/dL (8.5-10.5) L 06/23/23 17:40 Total Bilirubin 0.3 mg/dL (0.15-1.2) 06/23/23 17:40 AST 25 U/L (0-32) 06/23/23 17:40 ALT 19 U/L (0-33) 06/23/23 17:40 Alkaline Phosphatase 106 U/L (35-105) H 06/23/23 17:40 Total Protein 6.4 g/dL (6.6-8.7) L 06/23/23 17:40 Albumin 2.6 g/dL (3.5-5.2) L 06/23/23 17:40 Globulin 3.8 g/dL (1.3-4.6) 06/23/23 17:40 Lipase 90 U/L (13-60) H 06/23/23 17:40 HCG, Qual Negative (Negative) 06/23/23 17:40 Discharge Plan Discharge Patient Disposition: Home Clinical Impression: Pancolitis, Microcytic anemia Condition: Stable Prescriptions: New prednisone 20 mg tablet 20 mg PO BID 7 Days Qty: 14 0RF ciprofloxacin HCl 500 mg tablet 500 mg PO BID Qty: 14 0RF metronidazole 500 mg tablet 500 mg PO Q8H 7 Days Qty: 21 0RF hydrocodone-acetaminophen 5-325 mg tablet 1 tab PO Q6H PRN (Reason: pain (scale score 7-10)) Qty: 14 0RF ondansetron 4 mg tablet,disintegrating 4 mg PO Q8H PRN (Reason: nausea and vomiting) Qty: 10 0RF No Action sertraline 100 mg tablet 100 mg PO DAILY omeprazole 20 mg capsule,delayed release(DR/EC) 20 mg PO DAILY alprazolam 0.5 mg tablet 0.5 mg PO DAILY ibuprofen 800 mg tablet 800 mg PO TID PRN (Reason: pain) Qty: 60 0RF ondansetron 4 mg tablet,disintegrating 4 mg PO Q8H PRN (Reason: nausea and vomiting) Qty: 15 0RF oxycodone 5 mg tablet 5 mg PO Q4H PRN (Reason: pain) Qty: 10 0RF Discharge Orders: Discharge ED (Routine); Ordered 06/23/23 Ordered By: Danielito Foley Referrals: Kendrick Nascimento MD [Primary Care Provider] - Discharge Diet: Usual diet Discharge Activity: Increase activity as tolerated Patient Instructions: Colitis (ED), Opioid Safety, Pain Management Activity Restrictions/Additional Instructions: Take medication as directed. Drink plenty of water and fluids. Maintain a clear liquid diet until pain resolves. Then increase to a bland diet such as bananas, rice, apples, boiled chicken. Follow-up with surgeon for further evaluation with colonoscopy. Also talk with surgeon about gallbladder sludge and consideration of surgery for removal. Return to ER for worsening symptoms such as high fever, blood in vomit or stool, or new concerns. Coding Level of Care Code ED Grape [employer]her for Syd Ramirez
[2023-06-23 17:49] LABS: Basophils # 0.1 10^3/uL (0.0-0.1); Basophils % 0.7 %; Eosinophils # 0.2 10^3/uL (0.0-0.8); Eosinophils % 1.5 %; Hematocrit 28.6 % (37.0-47.0); Hemoglobin 8.1 g/dL (11.5-15.3); Lymphocytes % 16.5 %; Mean Corpuscular HGB Conc 28.3 g/dL (30.0-36.0); Mean Corpuscular Volume 70.4 fl (81-99); Mean Platelet Volume 9.2 fL (7.4-10.4); Monocytes # 1.1 10^3/uL (0.2-0.9); Monocytes % 8.6 %; Neutrophils # 8.78 10^3/uL (1.8-7.7); Neutrophils % 71.6 %; Nucleated Red Blood Cells % 0.2 %; Platelet Count 597 10^3/cmm (130-400); Red Blood Count 4.06 10^6/uL (4.1-5.3); Red Cell Distribution Width 16.9 % (12.1-15.1); White Blood Count 12.3 10^3/uL (4.0-10.0)
[2023-06-23] MEDS: ondansetron 2 mg/ML SDV 2 mL 4 MG IVP (17:53)
[2023-06-23] MEDS: fentaNYL 50 mcg/mL INJ 2mL 80 MCG IVP (17:54)
[2023-06-23] MEDS: sodium chloride 0.9% 1,000 ML 999 ML IV (17:54)
[2023-06-23] MEDS: lactated ringers 1,000 ML 999 ML IV (17:54)
[2023-06-23 17:59] VITALS: BP 105/70; PULSE 104; RESP 16; O2SAT 98
[2023-06-23 18:15] LABS: HCG, Serum Qual Negative (Negative)
[2023-06-23 18:20] LABS: Alanine Aminotransferase 19 U/L (0-33); Albumin Level 2.6 g/dL (3.5-5.2); Alkaline Phosphatase 106 U/L (35-105); Anion Gap 16.6 (5-19); Aspartate Amino Transferase 25 U/L (0-32); Blood Urea Nitrogen 9 mg/dL (6-20); Calcium 8.2 mg/dL (8.5-10.5); Carbon Dioxide 24 mmol/L (22-29); Chloride 93 mmol/L (98-107); Globulin 3.8 g/dL (1.3-4.6); Glomerular Filtration Rate 47.2 mL/min (90-130); Glucose 159 mg/dL (65-115); Osmolality Calculated 272 mOsm/kg (285-295); Potassium 3.6 mmol/L (3.5-5.1); Sodium 130 mmol/L (136-145); Total Bilirubin 0.3 mg/dL (0.15-1.2); Total Protein 6.4 g/dL (6.6-8.7)
--- NOTE | 2023-06-23 18:32 | CTR_ITS ---
PROCEDURE INFORMATION: Exam: CT Abdomen And Pelvis With Contrast Exam date and time: 06/23/2023 6:38 PM Age: 32 years old Clinical indication: Abdominal pain; Localized; Patient HX: Upper abd pain with nausea; Additional info: Pancreatitis TECHNIQUE: Imaging protocol: Computed tomography of the abdomen and pelvis with contrast. Axial, coronal and sagittal reformatted images were created and reviewed. Radiation optimization: All CT scans at this facility use at least one of these dose optimization techniques: automated exposure control; mA and/or kV adjustment per patient size (includes targeted exams where dose is matched to clinical indication); or iterative reconstruction. Contrast material: OMNI 350; Contrast volume: 75 ml; Contrast route: INTRAVENOUS (IV); REPORTING DATA: Count of CT and Cardiac NM exams in prior 12 months: This patient has received 0 known CTs and 0 known cardiac nuclear medicine studies in the 12 months prior to the current study. COMPARISON: CR XR KUB [id number] 11/11/2017 2:44 PM RADIATION DOSE METRICS: Total DLP (mGy-cm): 910.14 FINDINGS: Lungs: Minimal dependent atelectatic change at the lung bases. Liver: Mild hepatomegaly. Gallbladder and bile ducts: No radiodense gallstones. No biliary ductal dilatation. Pancreas: Unremarkable. Spleen: Unremarkable. Adrenal glands: Normal. No mass. Kidneys and ureters: Nonobstructing left renal calculus. No hydronephrosis. Stomach and bowel: Diffuse colonic wall thickening with associated mural and pericolonic edema. No obstruction. No pneumatosis. Appendix: Normal. Intraperitoneal space: No free fluid. No organized fluid collection. No free air. Vasculature: Unremarkable. No aneurysm. Lymph nodes: Small mesenteric and pericolonic lymph nodes, likely reactive. No pathologically enlarged lymph nodes. Urinary bladder: Unremarkable as visualized. Reproductive: Probable involuting left ovarian corpus luteal cyst. Bones/joints: No acute osseous abnormality. Mild degenerative changes. Soft tissues: Small, fat containing umbilical hernia. CT/CT abdomen pelvis w con* [id number] IMPRESSION: 1. Nonspecific pancolitis, as described above. 2. Additional findings, as above.
[2023-06-23] MEDS: iohexol 350 mg/mL 500 mL Btl (per mL) IV (18:38)
[2023-06-23] MEDS: metoclopramide 5 mg/mL SDV 2 mL 10 MG IVP (19:05)
[2023-06-23 19:07] LABS: Lipase 90 U/L (13-60)
[2023-06-23] MEDS: HYDROmorphone 1 mg/mL INJ 1 mL IVP (19:07)
[2023-06-23] MEDS: pantoprazole 40 mg SDV 80 MG IVP (19:09)
[2023-06-23] MEDS: dexamethasone 10 mg/mL INJ IVP (19:30)
[2023-06-23] MEDS: ciprofloxacin 400 MG/200 ML PREMIX 200 MG IV (19:34)
[2023-06-23] MEDS: metroNIDAZOLE IV 500 MG/100 ML PREMIX 100 MG IV (19:44)
[2023-06-23 20:00] VITALS: BP 116/65
--- NOTE | 2023-06-23 20:14 | PC.NURSE ---
PT SENT HOME WITH 4MG ZOFRAN AND NORCO 10/325 PER HOME HEALTH CARE CASE MANAGER ORDERS.
[2023-06-23] MEDS: HYDROmorphone 1 mg/mL INJ 1 mL 0.5 MG IVP (20:53)
--- NOTE | 2023-06-24 09:49 | DCPLANNER ---
Addendum entered by Glory Ramachandran 07/04/23 09:31: Patient did attend this appointment. Addendum entered by Glory Ramachandran 06/26/23 12:16: Patient has a follow up appointment scheduled for Sunday, July 02, [address]23 at 2:[address] Sanchez at general surgery. Original Note: distribution warehouse manager had message to schedule a follow up appointment for patient with general surgery. distribution warehouse manager sent patients information to the front office staff at general surgery. Patients information will be printed and reviewed. Clinic will call patient with appointment information.
== END 2023-06-23 21:00 | disposition home or self-care (01) ==
PROVIDERS: Emergency Provider Nurse Practitioner Family; PCP Family Medicine
DX: K51.00 Ulcerative (chronic) pancolitis without complications (principal); D50.9 Iron deficiency anemia, unspecified
CPT/HCPCS: 36415; 74177; 80053; 83690; 84703; 85025; 96365; 96367; 96375; 96376; 99285; C9113; J0744; J1100; J1170; J2405; J2765; J3010; J3490; J7030; J7120; Q9967

== ENCOUNTER 2023-07-10 07:32 | Inpatient (IN) | payer MEDICAID, SELFPAY ==
[2023-07-10] VITALS (72 sets, daily range): BP systolic 85–151; BP diastolic 42–90; PULSE 90–132; RESP 14–42; TEMP 36.8–37.4; O2SAT 93–100; BMI 31.3
--- NOTE | 2023-07-10 07:51 | ED_ITS ---
Documented by User: AISHWARYA Snider 07/10/23 10:18 HPI - General Adult General: Chief complaint: Weakness Stated complaint: no energy,dizzy,headache Time Seen by Provider: 07/10/23 07:34 Source: patient and family (Mother) Mode of arrival: ambulatory Limitations: no limitations History of Present Illness: Patient is a 32-year-old female who presents to the emergency department complaining of worsening fatigue, dizziness, and headache. Patient was seen and evaluated in the emergency department on 06/23 for epigastric pain/bloody stools and was found to be anemic and discharged with a consult with surgery. CT scan at the time showing pancolitis. She saw Dr. Sanchez on 07/02 and was subsequently scheduled for an EGD/colonoscopy on 08/21 of this year. For the past 1.5 weeks she states she has gotten increasingly dizzy with a headache, has been short of breath, and has still noted blood in her stool. She also notes feeling generally unwell, and states that she has not been able to get into see a primary physician to discuss her recent visits. She denies any fever, but states that her appetite has been significantly suppressed. Her epigastric abdominal pain is still present but she states that it has not radiated anywhere and has remained constant over the past few weeks. She denies any pain with defecation, vomiting, chest pain, palpitations, or any other symptoms. She underwent a laparoscopic bilateral salpingectomy approximately 2 months ago for sterilization but otherwise no other surgical history. Onset (ago): week(s) (1.5) Location: abdomen Radiation: non-radiation Severity: moderate Pain Consistency: constant Relieving factors: none Exacerbating factors: none Associated symptoms: Reports dyspnea, headache(s) and malaise; Deny chest pain, confusion, nausea, rash, palpitations, syncope or vomiting Treatments prior to arrival: none Review of Systems Const: Reports: change in appetite, fatigue and malaise; Denies: fever(s) or chills Eyes: Denies: change in vision or blurry vision Card: Denies: chest pain, palpitations, irregular heart rhythm, edema, lightheadedness, syncope or pre-syncope Resp: Reports: dyspnea; Denies: productive cough, pain on inspiration, hemoptysis or chest congestion GI: Reports: abdominal pain, hematochezia and melena; Denies: nausea, vomiting, heartburn or diarrhea : Denies: flank pain, difficulty voiding, dysuria, urinary frequency, urinary urgency or urinary hesitancy Musc: Denies: neck pain, back pain, extremity pain, extremity swelling or joint pain Skin/Breast: Denies: rash Neuro: Reports: headache(s) and dizziness; Denies: numbness in extremities, weakness in extremities, sensory changes, lack of coordination, difficulty walking, frequent falls or confusion PFSH ED PFSH: Medical History Mild endometriosis (~04/24/23) Noted on the left round ligament at the time of laparoscopy for sterilization; incidental finding- Osei No pertinent past medical history neghx: htn,dm,thyroid,dvt/pe PCP: Dr. Nascimento Surgical History History of laparoscopy (~04/24/23) bilateral salpingectomy- performed by Dr. Franz at [facility]; mild endometriosis noted and treated. Family History Denies family history of Colon cancer Ovarian cancer Diabetes Heart disease Hypercholesteremia Breast cancer Hypertension Uterine cancer Thyroid disease Stroke Social History Smoking and tobacco status: former smoker Alcohol intake: current Alcohol intake frequency: holidays/special occasions only Physical Exam Const: COMMON NORMALS: no acute distress, patient oriented x3, no limitations, alert and well nourished GENERAL APPEARANCE: cooperative, ill appearing and other (pale) NUTRITIONAL APPEARANCE: overweight ORIENTATION/CONSCIOUSNESS: Yes awake, Yes oriented to person, Yes oriented to place and Yes oriented to time HENMT: COMMON NORMALS: normocephalic and atraumatic HEAD & SCALP: normal to inspection, normocephalic and atraumatic Eye: COMMON NORMALS: no scleral icterus Neck/C-Spine: COMMON NORMALS: full ROM, no lymphadenopathy, supple and no meningeal signs Chest: COMMONS NORMALS: normal inspection of the chest Resp: COMMON NORMALS: normal respiratory effort and clear to auscultation bilaterally AUSCULTATION: clear to auscultation bilaterally Cardio: COMMON NORMALS: regular rhythm RATE: tachycardic RHYTHM: regular rhythm GI: COMMON NORMALS: Normal to inspection, nondistended, normoactive bowel sounds present, Soft to palpation, No hepatosplenomegaly present and no masses INSPECTION: Yes normal to inspection PALPATION: Yes Soft to palpation, Yes Tenderness to palpation present (GI) Details: other (Epigastric), No Guarding due to palpation present (GI), No Rigid due to palpation, Yes No hepatosplenomegaly present and No Pulsatile mass present RECTAL EXAM: heme positive stool : COMMON NORMALS: Yes no CVA tenderness BLADDER/KIDNEY EXAM: Yes no CVA tenderness Back/Pelvis: COMMON NORMALS: no CVA tenderness and thoracic and lumbar spine normal to inspection Extremity: COMMON NORMALS: normal to inspection GENERAL: Yes normal exam except as noted Neuro: JOCELYN COMA SCALE: document GCS findings [place] coma scale eye opening: Spontaneous Jocelyn coma scale verbal response: Orientated [place] coma scale motor response: Obey commands Jocelyn coma scale total score: 15 COMMON NORMALS: patient oriented x3, CN's II-XII intact bilaterally, moves all extremities, no focal motor deficits and no sensory deficits noted SENSORIUM/ORIENTATION: Yes alert, Yes oriented to person, Yes oriented to place and Yes oriented to time MENINGEAL SIGNS: Yes no meningeal signs Skin: COMMON NORMALS: no rashes or lesions noted GENERAL SKIN EXAM: no rashes or lesions noted Course Consultations: Consultation #1: Dr. Drew-we will consult on patient plan for EGD/colonoscopy tomorrow Consultation #2: Dr. Campos-accepts hospitalization; recommends admit to [facility] Vital Signs: Vital signs: Vital Signs Temperature 99.3 F 07/10/23 12:31 Pulse Rate 91 07/10/23 12:31 Respiratory Rate 24 H 07/10/23 12:31 Blood Pressure 120/73 07/10/23 12:31 Pulse Oximetry 96 07/10/23 12:16 Oxygen Delivery Me thod Room Air 07/10/23 12:44 [facility] - General Adult Medical Decision Making Chart reviewed and patient discussed with midlevel. Agree with assessment and plan. Patient seen and evaluated. Agree with admission. Exam findings as documented by Noa Little. Patient is a 32-year-old female with a history of upper abdominal pains over the past month or so as well as anemia. Last hemoglobin was roughly 8.1 few weeks ago. She has a history of black and tarry stools and subsequently saw Dr. Sanchez with plan for EGD/colonoscopy in early August. She presents to ED today with complaints of fatigue, headache, shortness of breath, dizziness. She arrives pale and tachycardic. Hemoglobin today is 6.1. She is profoundly orthostatic. Grossly positive Hemoccult. Patient will require hospitalization. I spoken to Dr. Drew who will consult on patient with plan for EGD/colonoscopy tomorrow. She has been transfused 2 units of blood here. She did have a one degree temp increase after hanging blood products. Dr. Jain aware and we will order her Tylenol and IV Benadryl. Started her on IV Protonix. Dr. Jain has been aware of case and agrees for admission. Spoke to Dr. Campos who accepts admission. Lab Data 07/10/23 07:53 07/10/23 07:53 Laboratory Results WBC 8.74 10^3/uL (3.29-11.43) 07/10/23 07:53 RBC 2.97 10^6/uL (3.85-5.65) L 07/10/23 07:53 Hgb 6.10 g/dL (11.27-16.99) L* 07/10/23 07:53 Hct 22.2 % (36-47) L 07/10/23 07:53 MCV 74.7 fl (85-98) L 07/10/23 07:53 MCH 20.5 pg (27-33) L 07/10/23 07:53 MCHC 27.5 g/dL (30-55) L 07/10/23 07:53 RDW 20.1 % (12.1-15.1) H 07/10/23 07:53 Plt Count 399 10^3/cmm (157-399) 07/10/23 07:53 MPV 9.8 fL (7.4-10.4) 07/10/23 07:53 Neut % (Auto) 61.7 % 07/10/23 07:53 Lymph % (Auto) 24.0 % 07/10/23 07:53 Hickman % (Auto) 11.0 % 07/10/23 07:53 Eos % (Auto) 1.7 % 07/10/23 07:53 Baso % (Auto) 0.7 % 07/10/23 07:53 Neut # (Auto) 5.39 10^3/uL (1.8-7.7) 07/10/23 07:53 Lymph # (Auto) 2.1 10^3/uL (0.8-4.8) 07/10/23 07:53 Hickman # (Auto) 1.0 10^3/uL (0.2-0.9) H 07/10/23 07:53 Eos # (Auto) 0.2 10^3/uL (0.0-0.8) 07/10/23 07:53 Baso # (Auto) 0.1 10^3/uL (0.0-0.1) 07/10/23 07:53 Nucleated RBC % (auto) 0.3 % 07/10/23 07:53 Nucleated RBCs # 0.0 /100WBC 07/10/23 07:53 PT 15.10 SECONDS (12.1-14.9) H 07/10/23 07:52 INR 1.15 (0.8-1.2) 07/10/23 07:52 APTT 32.2 SECONDS (23.9-36.7) 07/10/23 07:52 Sodium 129 mmol/L (136-145) L 07/10/23 07:53 Potassium 3.8 mmol/L (3.5-5.1) 07/10/23 07:53 Chloride 96 mmol/L (98-107) L 07/10/23 07:53 Carbon Dioxide 22 mmol/L (22-29) 07/10/23 07:53 Anion Gap 14.8 (5-19) 07/10/23 07:53 BUN 8 mg/dL (6-20) 07/10/23 07:53 Creatinine 0.8 mg/dL (0.5-0.9) 07/10/23 07:53 GFR Calculation 82.6 mL/min (90-130) L 07/10/23 07:53 Glucose 143 mg/dL (65-115) H 07/10/23 07:53 Calculated Osmolality 269 mOsm/kg (285-295) L 07/10/23 07:53 Calcium 7.8 mg/dL (8.5-10.5) L 07/10/23 07:53 Total Bilirubin 0.4 mg/dL (0.15-1.2) 07/10/23 07:53 AST 14 U/L (0-32) 07/10/23 07:53 ALT 6 U/L (0-33) 07/10/23 07:53 Alkaline Phosphatase 88 U/L (35-105) 07/10/23 07:53 Total Protein 6.5 g/dL (6.6-8.7) L 07/10/23 07:53 Albumin 2.5 g/dL (3.5-5.2) L 07/10/23 07:53 Globulin 4.0 g/dL (1.3-4.6) 07/10/23 07:53 Lipase 60 U/L (13-60) 07/10/23 07:53 HCG, Qual Negative (Negative) 07/10/23 07:53 Urine Color Yellow (Yellow) 07/10/23 10:35 Urine Appearance Clear (CLEAR) 07/10/23 10:35 Urine pH 7 (5-7) 07/10/23 10:35 Ur Specific [place] 1.005 (1.005-1.030) 07/10/23 10:35 Urine Protein Neg (Negative) 07/10/23 10:35 Urine Glucose (UA) Norm (Normal) 07/10/23 10:35 Urine Ketones Negative (Negative) 07/10/23 10:35 Urine Blood Neg (Negative) 07/10/23 10:35 Urine Nitrate Negative (Negative) 07/10/23 10:35 Urine Bilirubin Neg (Negative) 07/10/23 10:35 Urine Urobilinogen Norm mg/dL (Negative) 07/10/23 10:35 Ur Leukocyte Esterase Negative (Negative) 07/10/23 10:35 Blood Type O Positive 07/10/23 08:07 Rho(D) Type Positive 07/10/23 08:07 Antibody Screen Negative 07/10/23 08:07 Crossmatch See Detail 07/10/23 08:07 Discharge Plan Discharge Patient Disposition: Admitted As Inpatient Admit Provider: Divina Campos Clinical Impression: Acute GI bleeding, Anemia, Orthostatic dizziness Condition: Stable Coding Level of Care Code ED Truck Driving Instructor for Chg Fwd Documented by User: Angelito Jain DO 07/10/23 14:12 HPI - General Adult General: Chief complaint: Weakness Stated complaint: no energy,dizzy,headache Time Seen by Provider: 07/10/23 07:34 PFSH ED PFSH: Medical History Mild endometriosis (~04/24/23) Noted on the left round ligament at the time of laparoscopy for sterilization ; incidental finding- Albino No pertinent past medical history neghx: htn,dm,thyroid,dvt/pe PCP: Dr. Nascimento Surgical History History of laparoscopy (~04/24/23) bilateral salpingectomy- performed by Dr. Franz at [facility]; mild endometriosis noted and treated. Family History Denies family history of Colon cancer Ovarian cancer Diabetes Heart disease Hypercholesteremia Breast cancer Hypertension Uterine cancer Thyroid disease Stroke Social History Smoking and tobacco status: former smoker Alcohol intake: current Alcohol intake frequency: holidays/special occasions only Physical Exam Neuro: JOCELYN COMA SCALE: document GCS findings Jocelyn coma scale total score: 15 Course Vital Signs: Vital signs: Vital Signs Temperature 99.3 F 07/10/23 12:31 Pulse Rate 91 07/10/23 12:31 Respiratory Rate 24 H 07/10/23 12:31 Blood Pressure 120/73 07/10/23 12:31 Pulse Oximetry 96 07/10/23 12:16 Oxygen Delivery Me thod Room Air 07/10/23 12:44 MDM - General Adult Medical Decision Making Chart reviewed and patient discussed with midlevel. Agree with assessment and plan. Patient seen and evaluated. Agree with admission. Exam findings as documented by Noa Little. Lab Data 07/10/23 07:53 07/10/23 07:53 Laboratory Results WBC 8.74 10^3/uL (3.29-11.43) 07/10/23 07:53 RBC 2.97 10^6/uL (3.85-5.65) L 07/10/23 07:53 Hgb 6.10 g/dL (11.27-16.99) L* 07/10/23 07:53 Hct 22.2 % (36-47) L 07/10/23 07:53 MCV 74.7 fl (85-98) L 07/10/23 07:53 MCH 20.5 pg (27-33) L 07/10/23 07:53 MCHC 27.5 g/dL (30-55) L 07/10/23 07:53 RDW 20.1 % (12.1-15.1) H 07/10/23 07:53 Plt Count 399 10^3/cmm (157-399) 07/10/23 07:53 MPV 9.8 fL (7.4-10.4) 07/10/23 07:53 Neut % (Auto) 61.7 % 07/10/23 07:53 Lymph % (Auto) 24.0 % 07/10/23 07:53 Hickman % (Auto) 11.0 % 07/10/23 07:53 Eos % (Auto) 1.7 % 07/10/23 07:53 Baso % (Auto) 0.7 % 07/10/23 07:53 Neut # (Auto) 5.39 10^3/uL (1.8-7.7) 07/10/23 07:53 Lymph # (Auto) 2.1 10^3/uL (0.8-4.8) 07/10/23 07:53 Hickman # (Auto) 1.0 10^3/uL (0.2-0.9) H 07/10/23 07:53 Eos # (Auto) 0.2 10^3/uL (0.0-0.8) 07/10/23 07:53 Baso # (Auto) 0.1 10^3/uL (0.0-0.1) 07/10/23 07:53 Nucleated RBC % (auto) 0.3 % 07/10/23 07:53 Nucleated RBCs # 0.0 /100WBC 07/10/23 07:53 PT 15.10 SECONDS (12.1-14.9) H 07/10/23 07:52 INR 1.15 (0.8-1.2) 07/10/23 07:52 APTT 32.2 SECONDS (23.9-36.7) 07/10/23 07:52 Sodium 129 mmol/L (136-145) L 07/10/23 07:53 Potassium 3.8 mmol/L (3.5-5.1) 07/10/23 07:53 Chloride 96 mmol/L (98-107) L 07/10/23 07:53 Carbon Dioxide 22 mmol/L (22-29) 07/10/23 07:53 Anion Gap 14.8 (5-19) 07/10/23 07:53 BUN 8 mg/dL (6-20) 07/10/23 07:53 Creatinine 0.8 mg/dL (0.5-0.9) 07/10/23 07:53 GFR Calculation 82.6 mL/min (90-130) L 07/10/23 07:53 Glucose 143 mg/dL (65-115) H 07/10/23 07:53 Calculated Osmolality 269 mOsm/kg (285-295) L 07/10/23 07:53 Calcium 7.8 mg/dL (8.5-10.5) L 07/10/23 07:53 Total Bilirubin 0.4 mg/dL (0.15-1.2) 07/10/23 07:53 AST 14 U/L (0-32) 07/10/23 07:53 ALT 6 U/L (0-33) 07/10/23 07:53 Alkaline Phosphatase 88 U/L (35-105) 07/10/23 07:53 Total Protein 6.5 g/dL (6.6-8.7) L 07/10/23 07:53 Albumin 2.5 g/dL (3.5-5.2) L 07/10/23 07:53 Globulin 4.0 g/dL (1.3-4.6) 07/10/23 07:53 Lipase 60 U/L (13-60) 07/10/23 07:53 HCG, Qual Negative (Negative) 07/10/23 07:53 Urine Color Yellow (Yellow) 07/10/23 10:35 Urine Appearance Clear (CLEAR) 07/10/23 10:35 Urine pH 7 (5-7) 07/10/23 10:35 Ur Specific [place] 1.005 (1.005-1.030) 07/10/23 10:35 Urine Protein Neg (Negative) 07/10/23 10:35 Urine Glucose (UA) Norm (Normal) 07/10/23 10:35 Urine Ketones Negative (Negative) 07/10/23 10:35 Urine Blood Neg (Negative) 07/10/23 10:35 Urine Nitrate Negative (Negative) 07/10/23 10:35 Urine Bilirubin Neg (Negative) 07/10/23 10:35 Urine Urobilinogen Norm mg/dL (Negative) 07/10/23 10:35 Ur Leukocyte Esterase Negative (Negative) 07/10/23 10:35 Blood Type O Positive 07/10/23 08:07 Rho(D) Type Positive 07/10/23 08:07 Antibody Screen Negative 07/10/23 08:07 Crossmatch See Detail 07/10/23 08:07 Discharge Plan Discharge Patient Disposition: Admitted As Inpatient Admit Provider: Divina Campos Clinical Impression: Acute GI bleeding, Anemia, Orthostatic dizziness Condition: Stable Coding Level of Care Code ED Truck Driving Instructor for Chg Fwgabbie
[2023-07-10 08:02] LABS: Basophils # 0.1 10^3/uL (0.0-0.1); Basophils % 0.7 %; Eosinophils # 0.2 10^3/uL (0.0-0.8); Eosinophils % 1.7 %; Hematocrit 22.2 % (36-47); Lymphocytes # 2.1 10^3/uL (0.8-4.8); Mean Corpuscular HGB Conc 27.5 g/dL (30-55); Mean Corpuscular Hemoglobin 20.5 pg (27-33); Mean Corpuscular Volume 74.7 fl (85-98); Mean Platelet Volume 9.8 fL (7.4-10.4); Neutrophils # 5.39 10^3/uL (1.8-7.7); Neutrophils % 61.7 %; Nucleated Red Blood Cells % 0.3 %; Platelet Count 399 10^3/cmm (157-399); Red Blood Count 2.97 10^6/uL (3.85-5.65); Red Cell Distribution Width 20.1 % (12.1-15.1); White Blood Count 8.74 10^3/uL (3.29-11.43)
[2023-07-10] MEDS: sodium chloride 0.9% 1,000 ML 999 ML IV (08:13)
[2023-07-10 08:14] LABS: HCG, Serum Qual Negative (Negative)
[2023-07-10 08:19] LABS: Alanine Aminotransferase 6 U/L (0-33); Albumin Level 2.5 g/dL (3.5-5.2); Alkaline Phosphatase 88 U/L (35-105); Aspartate Amino Transferase 14 U/L (0-32); Blood Urea Nitrogen 8 mg/dL (6-20); Calcium 7.8 mg/dL (8.5-10.5); Carbon Dioxide 22 mmol/L (22-29); Chloride 96 mmol/L (98-107); Glomerular Filtration Rate 82.6 mL/min (90-130); Glucose 143 mg/dL (65-115); Lipase 60 U/L (13-60); Osmolality Calculated 269 mOsm/kg (285-295); Sodium 129 mmol/L (136-145); Total Bilirubin 0.4 mg/dL (0.15-1.2); Total Protein 6.5 g/dL (6.6-8.7)
[2023-07-10 08:20] LABS: Anion Gap 14.8 (5-19); Potassium 3.8 mmol/L (3.5-5.1)
--- NOTE | 2023-07-10 08:23 | PC.NURSE ---
PT STATES SHE HAS NOTICED BRIGHT RED BLOOD IN HER STOOL AND ON TISSUE PAPER. POSITIVE HEMOCCULT TEST
--- NOTE | 2023-07-10 08:55 | PC.PHAR ---
Addendum entered by Yolanda Diaz 07/10/23 09:23: pt states she finished prednisone 20mg bid-flagyl 500mg [id number] cipro 500mg bid all rxs filled 06/24/23 7d/s Original Note: pt states she takes care of her own medications-pt states she had a build up of zoloft 100mg daily ext shows last filled 04/19/23 30d/s-
[2023-07-10] MEDS: pantoprazole 40 mg SDV IVP ×2 (09:16→20:22)
[2023-07-10] MEDS: sodium chloride 0.9% 100 mL Bag 50 ML IV (09:30)
--- NOTE | 2023-07-10 09:36 | PC.NURSE ---
PT TEM INCREASE OVER 1 DEGREE. BLOOD TRANSFUSION PAUSED.PROVIDER NOTIFIED OF INCREASE IN ORAL TEMPERATURE DURING BLOOD TRANSFUSION. PT STATES SHE DOES NOT FEEL ANY DIFFERENT. PHYSICIAN IN ROOM TO ASSESS PT. PHYSICIAN GAVE VERBAL ORDER TO CONTINUE WITH BLOOD TRANSFUSION.
--- NOTE | 2023-07-10 09:43 | PC.NURSE ---
BLOOD TRANSFUSION VERIFIED WITH SILVANO BROWN
[2023-07-10 09:53] LABS: INR 1.15 (0.8-1.2)
[2023-07-10 09:54] LABS: Partial Thromboplastin Time 32.2 SECONDS (23.9-36.7)
[2023-07-10] MEDS: diphenhydrAMINE 50 mg/mL SDV 1mL IVP (10:14)
[2023-07-10] MEDS: acetaminophen 500 mg Tablet 1000 MG PO (10:15)
[2023-07-10 10:42] LABS: Add Urine Microscopic? NO; Charge for UA Resulting for Rev
[2023-07-10 10:52] LABS: Bilirubin Urine Neg (Negative); Blood Urine Neg (Negative); Glucose Urine UA Norm (Normal); Ketones Urine Negative (Negative); Leukocyte Esterase Urine Negative (Negative); Nitrate Urine Negative (Negative); Protein Urine Neg (Negative); Specific Gravity, Urine 1.005 (1.005-1.030); Urine Appearance Clear (CLEAR); Urine Color Yellow (Yellow); Urobilinogen Urine Norm (Negative); pH Urine 7 (5-7)
--- NOTE | 2023-07-10 12:03 | PC.NURSE ---
YENNY BROWN VERIFIED SECOND UNIT OF BLOOD WITH THIS NURSE.
[2023-07-10] MEDS: sodium chloride 0.9% 1,000 ML 100 ML IV (12:57)
--- NOTE | 2023-07-10 13:00 | PC.NURSE ---
Patient arrived to ICU from ER at approximately 1240. Patient alert and orientated. No skin issues noted. Resting at this time with even unlabored respirations
--- NOTE | 2023-07-10 14:00 | PM.HP ---
Providers/Chief Complaint Admitting Physician: Divina Campos MD Primary Care Provider: Kendrick Nascimento MD Chief Complaint: no energy,dizzy,headache History of Present Illness Elizabeth Adames is a 32 year old female with a recent history of hematochezia that has been going on for the past 2 months, recent diagnosis of colitis p/w worsening abdominal pain, increasing generalized weakness and worsened anemia with Hb down to ~6 from 8 recently. She has not noticed any lizy or hematemesis. She was planned for an outpatient colonoscopy in August but came to ER today for worsening weakness. She is intermittently tachycardic today and had episode of pre syncope in the ER per ERP. PMh significant for endometriosis, recent tubal ligation in April 2023. Hcg negative today. No known family h/o colon ca or IBD. States that her father from an exploded colon but she does not recall the details. Review of Systems General: Reports: 10 or more systems reviewed and unremarkable except in HPI and below Const: Denies: fever(s), chills or body aches Eyes: Denies: change in vision, blurry vision or photophobia ENMT: Reports: hoarseness; Denies: throat pain, enlarged tonsils, odynophagia or nasal congestion Card: Denies: chest pain, palpitations, irregular heart rhythm, edema, swelling of feet/ankles, lightheadedness, pre-syncope, dyspnea on exertion or orthopnea Resp: Denies: dyspnea, productive cough, non-productive cough, wheezing, stridor, pain on inspiration, change in phlegm color, hemoptysis or chest congestion GI: Denies: abdominal pain, nausea, vomiting, hematemesis, coffee ground emesis, dysphagia, heartburn, diarrhea, constipation, GI cramping, change in stool character, hematochezia or melena : Denies: flank pain, difficulty voiding, dysuria, urinary frequency, urinary urgency, urinary hesitancy or hematuria Musc: Denies: neck pain, back pain, extremity pain, joint swelling, joint warmth or deformity Neuro: Denies: headache(s), numbness in extremities, weakness in extremities, sensory changes, difficulty walking, frequent falls, dizziness, vertigo, behavioral changes, Slurred speech present or seizure-like activity Psych: Denies: anxiety, depression, suicidal ideation or homicidal ideation Endo: Denies: polyuria, polydipsia, tired all the time, cold intolerance or hot flashes Quirino/Lymph: Denies: easy bruising or easy bleeding Medications/Allergies Home Medications Medication Instructions Recorded Confirmed Last Taken Type alprazolam 0.5 mg tablet 0.5 mg PO BID PRN Anxiety 03/12/23 07/10/23 06/15/23 History sertraline 100 mg tablet 100 mg PO QAM 03/12/23 07/10/23 2 Days Ago History ~07/08/23 hydrocodone 5 mg-acetaminophen 325 1 tab PO Q6H PRN pain (scale score 06/23/23 07/10/23 Unknown Rx mg tablet 7-10) #14 tabs ondansetron 4 mg disintegrating 4 mg PO Q8H PRN nausea and 06/23/23 07/10/23 Unknown Rx tablet vomiting #10 tabs pantoprazole 40 mg tablet,delayed 40 mg PO BID 6 weeks #84 tabs 07/02/23 07/10/23 2 Days Ago Rx release (Protonix) ~07/08/23 ibuprofen 200 mg tablet 800 mg PO Q6H PRN Pain 07/10/23 07/10/23 Unknown History Allergies Allergy/AdvReac Type Severity Reaction Status Date / Time No Known Allergies Allergy Verified 07/10/23 08:51 PFSH Acute PFSH: Medical History Mild endometriosis (~04/24/23) Noted on the left round ligament at the time of laparoscopy for sterilization; incidental finding- Albino No pertinent past medical history neghx: htn,dm,thyroid,dvt/pe PCP: Dr. Nascimento Surgical History History of laparoscopy (~04/24/23) bilateral salpingectomy- performed by Dr. Franz at [facility]; mild endometriosis noted and treated. Family History Denies family history of Colon cancer Ovarian cancer Diabetes Heart disease Hypercholesteremia Breast cancer Hypertension Uterine cancer Thyroid disease Stroke Social History Smoking and tobacco status: former smoker Alcohol intake: current Alcohol intake frequency: holidays/special occasions only Female Reproductive History: Date of last menstrual period: 06/27/23 Vitals/I&O/Wt Last Vital Signs Temp 99.3 F 07/10/23 12:31 Pulse 122 H 07/11/23 00:30 Resp 18 07/11/23 00:30 BP 150/84 07/11/23 00:00 Pulse Ox 95 07/11/23 00:12 O2 Del Method Room Air 07/11/23 00:30 07/10/23 07/10/23 07/11/23 14:59 22:59 06:59 Intake Total 1700 / 1700 705 / 2405 Balance 1700 / 1700 705 / 2405 Weight last 48 hrs Weight 90.718 kg Physical Exam Narrative: General: No acute distress, AO x3 HEENT: PERRLA, pupils bilaterally equal and reactive, pallors not present Chest: Normal vesicular breath sounds, no added sounds, equal good air entry bilaterally CVS: S1-S2 regular, no murmurs, no tachycardia, no gallops, no rubs Abdomen: Soft, nontender, no organomegaly, bowel sounds present Neuro: No focal deficits, no facial deformity, AO x3, power 5/5 in all limbs Data 07/10/23 19:07 07/10/23 07:53 A&P Assessment and plan (1) Anemia: Qualifiers: Anemia type: unspecified type Qualified Code(s): D64.9 - Anemia, unspecified (2) Orthostatic dizziness: (3) GI bleeding: Plan 32F with hematochezi ongoing for about 2 months p/w increasing generalzed weakness Hb worsened today at ~6 ordered for 2 PRBC transfusion from ER, currently getting transfused at exam T max to 99F during transfusion, pre medicate with tylenol has not noticed any worsened bleeding recently Admitted to ICU in view of symptomatic anemia and orthosttaic hypotension in ER Recheck Hb post transfusion, Hb goal 7 Planned EGD/ colonoscopy tomorrow Differentials include NSAID induced gatsritis vs ulcer (h/o ibuprofen use after erecnt surgery, steroids recently for colitis), IBD , endometrosis Attestations Medical Necessity Statement*: > 2 midnight admission is expected Coding Level of Care Code Acute Code for [facility] Fwd Diagnoses Anemia D64.9 Anemia type: unspecified type Orthostatic dizziness R42 GI bleeding K92.2
--- NOTE | 2023-07-10 14:08 | ECG_ITS ---
[facility] Test Date: 2023-07-10 Pat Name: Elizabeth Adames Department: Room: [facility] Gender: Female Engine Pilot: : 1990 Requested By: Divina Campos Order Number: [id number] Bernice MD: Bessy Marshall M.D. Measurements Intervals [place] Rate: 93 P: 0 MI: 0 QRS: 7 QRSD: 71 T: 34 QT: 354 QTc: 442 Interpretive Statements Sinus rhythm with frequent PACs ABNORMAL RHYTHM ECG No previous ECG available for comparison Electronically Signed On 07-10-2023 20:52:52 CDT by Bessy Marshall M.D. [id number]
--- NOTE | 2023-07-10 17:23 | PM.CONSULT ---
Providers/Reason For Consult Consulting Physician/Specialty*: General surgery Reason for Consult*: GI bleeding Attending Physician: Divina Campos MD Primary Care Provider: Kendrick Nascimento MD History of Present Illness History of Present Illness Elizabeth Adames is a 32 year old female who presented to the emergency department this morning complaining of fatigue dizziness and headache. Patient has been seen multiple times recently in the emergency department and was recently diagnosed with colitis. She saw my colleague Dr. Sanchez in the clinic who was planning to do an endoscopy and colonoscopy at the beginning of August. Since then patient has been too weak and therefore decided to present back to the hospital. In the hospital evaluation her hemoglobin was noted to be 6.1 and FOBT was positive for blood. I was consulted due to this finding. Per patient reports she has been having some moderate epigastric abdominal pain, has seen occasional red blood in her stool but denies melena. Review of Systems Narrative: 10 point review of systems was done and is negative otherwise noted in HPI. Medications/Allergies Home Medications Medication Instructions Recorded Confirmed Last Taken Type alprazolam 0.5 mg tablet 0.5 mg PO BID PRN Anxiety 03/12/23 07/10/23 06/15/23 History sertraline 100 mg tablet 100 mg PO QAM 03/12/23 07/10/23 2 Days Ago History ~07/08/23 hydrocodone 5 mg-acetaminophen 325 1 tab PO Q6H PRN pain (scale score 06/23/23 07/10/23 Unknown Rx mg tablet 7-10) #14 tabs ondansetron 4 mg disintegrating 4 mg PO Q8H PRN nausea and 06/23/23 07/10/23 Unknown Rx tablet vomiting #10 tabs pantoprazole 40 mg tablet,delayed 40 mg PO BID 6 weeks #84 tabs 07/02/23 07/10/23 2 Days Ago Rx release (Protonix) ~07/08/23 ibuprofen 200 mg tablet 800 mg PO Q6H PRN Pain 07/10/23 07/10/23 Unknown History Allergies Allergy/AdvReac Type Severity Reaction Status Date / Time No Known Allergies Allergy Verified 07/10/23 08:51 Current Medications Generic Name Dose Route Start Last Admin Trade Name Freq PRN Reason Stop Dose Admin Sodium Chloride 1,000 mls @ 100 mls/hr 07/10/23 12:42 07/10/23 12:57 Sodium Chloride 0.9% IV 100 mls/hr .Q10H BI Administration Sodium Chloride 50 ml 07/10/23 08:09 07/10/23 09:30 Sodium Chloride 0.9% 100 Ml Bag IV 07/11/23 08:09 50 ml PRN PRN Administration Blood transfusion prime and flush PFSH Acute PFSH: Medical History Mild endometriosis (~04/24/23) Noted on the left round ligament at the time of laparoscopy for sterilization; incidental finding- Osei No pertinent past medical history neghx: htn,dm,thyroid,dvt/pe PCP: Dr. Nascimento Surgical History History of laparoscopy (~04/24/23) bilateral salpingectomy- performed by Dr. Franz at [facility]; mild endometriosis noted and treated. Family History Denies family history of Colon cancer Ovarian cancer Diabetes Heart disease Hypercholesteremia Breast cancer Hypertension Uterine cancer Thyroid disease Stroke Social History Smoking and tobacco status: former smoker Alcohol intake: current Alcohol intake frequency: holidays/special occasions only Female Reproductive History: Date of last menstrual period: 06/27/23 Vitals/I&O/Wt Last Vital Signs Temp 99.3 F 07/10/23 12:31 Pulse 97 07/10/23 16:15 Resp 21 H 07/10/23 16:15 BP 106/75 07/10/23 16:15 Pulse Ox 100 07/10/23 16:15 O2 Del Method Room Air 07/10/23 12:44 07/10/23 07/10/23 07/10/23 06:59 14:59 22:59 Intake Total 1700 / 1700 Balance 1700 / 1700 Weight last 48 hrs Weight 200 lb Physical Exam Narrative: General : Patient appears weak, pale Head : Normal cephalic, a-traumatic. Nose : Mucous membranes are without erythema. Lungs : Equal chest rise bilaterally, no use of accessory muscles, trachea is midline. CV : Rate and rhythm are normal. Abdomen : Soft, ND, NT, no g/r/m Extremities : No edema. Upper extremities are normal bilaterally. Back : non-tender to palpation, no CVA tenderness. Data 07/10/23 07:53 07/10/23 07:53 A&P Assessment and plan (1) Acute GI bleeding: After complete history, physical examination and review of all available clinical data the following is my assessment. At the moment is unclear the reason the patient GI bleed, while colitis can be a contributory factor, I would not expect such severe anemia from that kind of bleeding. I think is appropriate to proceed with upper and lower endoscopy in SAMe emergent setting to rule out any active bleeding or any additional causes of bleeding. I have informed the patient that even after her colonoscopy tomorrow, she most likely will require a mother endoluminal evaluation as outpatient as these will be done in an emergent basis without bowel prep. I have discussed all the risks and benefits of the colonoscop endoscopy y. Including, the risk of perforation of the esophagus, stomach, duodenum or colon requiring surgical intervention and higher level of care, rectal bleeding, incomplete colonoscopy requiring repeat procedure in 3 months, missed polyps, need for additional procedures. Patient shows understanding and wishes to proceed. I will plan for colonoscopy tomorrow morning, in the interim I agree with continues resuscitation with blood products as well as with crystalloids. ?N.p.o. after midnight ? Continue high-dose PPI ? For endoluminal evaluation tomorrow ? All other care per primary team. Coding Level of Care Code 17957 Diagnoses Acute GI bleeding K92.2
[2023-07-10 19:26] LABS: Hematocrit 23.9 % (36-47)
[2023-07-10] MEDS: ALPRAZolam 0.5 mg Tablet PO (19:29)
[2023-07-10] MEDS: HYDROcodone-acetaminophen 5-325 mg Tablet 1 TAB PO (19:29)
[2023-07-10] MEDS: magnesium citrate Btl 296 mL 592 ML PO (20:14)
[2023-07-10] MEDS: morphine IR 15 mg Tablet PO (20:16)
[2023-07-10] MEDS: ondansetron 2 mg/ML SDV 2 mL 4 MG IVP (20:18)
[2023-07-10] MEDS: bisacodyl 10 mg Supp 40 MG PR (20:36)
[2023-07-10] MEDS: morphine 4 mg/mL SDV 1 mL 2 MG IVP (21:59)
[2023-07-11] VITALS (35 sets, daily range): BP systolic 116–155; BP diastolic 70–112; PULSE 94–196; RESP 12–37; TEMP 37.2–37.5; O2SAT 77–100
[2023-07-11] MEDS: morphine IR 15 mg Tablet PO (00:12)
[2023-07-11 02:42] LABS: Mean Corpuscular HGB Conc 27.8 g/dL (30-55); Mean Corpuscular Hemoglobin 23.5 pg (27-33); Mean Corpuscular Volume 84.7 fl (85-98); Mean Platelet Volume 10.3 fL (7.4-10.4); Platelet Count 370 10^3/cmm (157-399); Red Blood Count 4.25 10^6/uL (3.85-5.65); Red Cell Distribution Width 21.7 % (12.1-15.1); White Blood Count 10.33 10^3/uL (3.29-11.43)
--- NOTE | 2023-07-11 02:48 | PC.NURSE ---
Bowl Prep: Order for 4 suppositories totaling 40mg. Pt agreed to 1 suppository and refused the other 3. Pt is having frequent, liquid/watery bowl movements.
[2023-07-11 02:49] LABS: Alanine Aminotransferase 7 U/L (0-33); Albumin Level 2.7 g/dL (3.5-5.2); Alkaline Phosphatase 105 U/L (35-105); Anion Gap 18.1 (5-19); Aspartate Amino Transferase 13 U/L (0-32); Blood Urea Nitrogen 6 mg/dL (6-20); Calcium 8.3 mg/dL (8.5-10.5); Carbon Dioxide 16 mmol/L (22-29); Chloride 98 mmol/L (98-107); Globulin 4.8 g/dL (1.3-4.6); Glomerular Filtration Rate 72.1 mL/min (90-130); Glucose 111 mg/dL (65-115); Osmolality Calculated 264 mOsm/kg (285-295); Potassium 4.1 mmol/L (3.5-5.1); Sodium 128 mmol/L (136-145); Total Bilirubin 0.7 mg/dL (0.15-1.2); Total Protein 7.5 g/dL (6.6-8.7)
[2023-07-11 03:12] LABS: Slide Review Slide Review Perform
[2023-07-11 03:13] LABS: Absolute Eosinophils 0.3 10^3/cmm (0.0-0.7); Absolute Segmented Neutrophil 5.1 10/cmm (1.6-7.1); Eosinophils 3 %; Lymphocytes 15 %; Monocytes Absolute 1.4 10^3/cmm (0.1-0.6); Platelet Estimate Normal (Normal); Segmented Neutrophils 49 %; Smudge Cells Trace; Total Cells Counted 100 (0-100)
[2023-07-11] MEDS: sodium chloride 0.9% 1,000 ML 100 ML IV (05:58)
[2023-07-11] MEDS: pantoprazole 40 mg SDV IVP ×2 (08:25→20:40)
[2023-07-11 09:08] LABS: Hematocrit 30.6 % (36-47); Mean Corpuscular HGB Conc 29.4 g/dL (30-55); Mean Corpuscular Hemoglobin 23.2 pg (27-33); Mean Corpuscular Volume 78.9 fl (85-98); Platelet Count 381 10^3/cmm (157-399); Red Blood Count 3.88 10^6/uL (3.85-5.65); Red Cell Distribution Width 21.2 % (12.1-15.1); White Blood Count 10.92 10^3/uL (3.29-11.43)
--- NOTE | 2023-07-11 09:45 | P.ANESASSM_ITS ---
Pre-Anesthetic Assessment Height/Weight: Height 1.7 m Weight 90.718 kg Temp Pulse Resp BP Pulse Ox O2 Del Method 99.3 F 123 H 30 H 122/82 98 Room Air 07/10/23 12:31 07/11/23 08:00 07/11/23 08:00 07/11/23 08:00 07/11/23 08:00 07/11/23 06:00 Preop Diagnosis: Acute Anemia Operation Date: 07/11/23 09:50 Proposed Procedures p EGD(Not Applicable) - Singh Chang MD s Colonoscopy(Not Applicable) - Singh Chang MD Familial anesthetic complications: None Was Beta Canelo taken within 24 hours: N/A Was Clonidine taken within 24 hours: N/A Social No alcohol and No tobacco Exam alert, oriented x 3, clear to auscultation bilaterally and regular rate & rhythm Airway Submandibular: within normal limits Cervical ROM: within normal limits Mallampati: Class III Dentition: chipped History/ROS No significant history except as noted and No significant complaints Pulmonary None reported CV/HEM Anemia (Acute), Arrythmia (Tachycardia) and Murmur (Found out during with child 3.5 years ago) None reported Hepatic None reported GI Gastroesophageal Reflux Disease (None this morning) Metabolic None reported Musc/skel None reported Neuropsych Anxiety, Depression and Headache Anesthetic Plan ASA status: 2E Anesthesia: Anesthesia Evaluation, General and MAC Risk of > 500 ml blood loss (7ml/kg in children): No Medications/Allergies Home Medications Medication Instructions Recorded Confirmed Last Taken Type alprazolam 0.5 mg tablet 0.5 mg PO BID PRN Anxiety 03/12/23 07/10/23 06/15/23 History sertraline 100 mg tablet 100 mg PO QAM 03/12/23 07/10/23 2 Days Ago History ~07/08/23 hydrocodone 5 mg-acetaminophen 325 1 tab PO Q6H PRN pain (scale score 06/23/23 07/10/23 Unknown Rx mg tablet 7-10) #14 tabs ondansetron 4 mg disintegrating 4 mg PO Q8H PRN nausea and 06/23/23 07/10/23 Unknown Rx tablet vomiting #10 tabs pantoprazole 40 mg tablet,delayed 40 mg PO BID 6 weeks #84 tabs 07/02/23 07/10/23 2 Days Ago Rx release (Protonix) ~07/08/23 ibuprofen 200 mg tablet 800 mg PO Q6H PRN Pain 07/10/23 07/10/23 Unknown History Allergies Allergy/AdvReac Type Severity Reaction Status Date / Time No Known Allergies Allergy Verified 07/10/23 08:51 Current Medications Generic Name Dose Route Start Last Admin Trade Name Freq PRN Reason Stop Dose Admin Hydrocodone Bitart/Acetaminophen 1 tab 07/10/23 16:13 07/10/23 19:29 Hydrocodone-Acetaminophen 5-325 Mg Tablet PO 1 tab Q6H PRN Administration pain (scale score 7-10) Alprazolam 0.5 mg 07/10/23 16:13 07/10/23 19:29 Alprazolam 0.5 Mg Tablet PO 0.5 mg BID PRN Administration Anxiety Sodium Chloride 1,000 mls @ 100 mls/hr 07/10/23 12:42 07/11/23 08:27 Sodium Chloride 0.9% IV Not Given .Q10H BI Morphine Sulfate 15 mg 07/10/23 12:42 07/11/23 00:12 Morphine Ir 15 Mg Tablet PO 15 mg Q4H PRN Administration SEVERE PAIN Morphine Sulfate 2 mg 07/10/23 16:11 07/10/23 21:59 Morphine 4 Mg/Ml Sdv 1 Ml IVP 2 mg Q4H PRN Administration SEVERE PAIN (LAST) Ondansetron HCl 4 mg 07/10/23 12:42 07/10/23 20:18 Ondansetron 2 Mg/Ml Sdv 2 Ml IVP 4 mg Q6H PRN Administration NAUSEA AND VOMITING Pantoprazole Sodium 40 mg 07/10/23 21:00 07/11/23 08:25 Pantoprazole 40 Mg Sdv IVP 40 mg Q12H BI Administration Sertraline HCl 100 mg 07/11/23 06:00 07/11/23 06:27 Sertraline 100 Mg Tablet PO Not Given [facility] Anesthesia Medical History Mild endometriosis (~04/24/23) Noted on the left round ligament at the time of laparoscopy for sterilization; incidental finding- Albino No pertinent past medical history neghx: htn,dm,thyroid,dvt/pe PCP: Dr. Nascimento Surgical History History of laparoscopy (~04/24/23) bilateral salpingectomy- performed by Dr. Franz at [facility]; mild endometriosis noted and treated. Family History Denies family history of Colon cancer Ovarian cancer Diabetes Heart disease Hypercholesteremia Breast cancer Hypertension Uterine cancer Thyroid disease Stroke Social History Smoking and tobacco status: former smoker Alcohol intake: current Alcohol intake frequency: holidays/special occasions only Female Reproductive History Date of last menstrual period: 06/27/23 Data Anesthesia 07/11/23 09:00 07/11/23 01:57 Short CBC 07/10/23 07/10/23 07/11/23 Range/Units 07:53 19:07 01:57 WBC 8.74 Cancelled (3.29-11.43) 10^3/uL Hgb 6.10 L* 7.20 L Cancelled (11.27-16.99) g/dL Hct 22.2 L 23.9 L Cancelled (36-47) % MCV 74.7 L Cancelled (85-98) fl Plt Count 399 Cancelled (157-399) 10^3/cmm Neut % (Auto) 61.7 Cancelled % Neut # (Auto) 5.39 Cancelled (1.8-7.7) 10^3/uL 07/11/23 Range/Units 01:57 WBC 10.33 (3.29-11.43) 10^3/uL Hgb 10.00 L D (11.27-16.99) g/dL Hct 36.0 D (36-47) % MCV 84.7 L D (85-98) fl Plt Count 370 (157-399) 10^3/cmm Neut % (Auto) % Neut # (Auto) (1.8-7.7) 10^3/uL BMP 07/10/23 07/11/23 07:53 01:57 Sodium 129 L 128 L Potassium 3.8 4.1 Chloride 96 L 98 Carbon Dioxide 22 16 L BUN 8 6 Creatinine 0.8 0.9 Glucose 143 H 111 Calcium 7.8 L 8.3 L Liver Function 07/10/23 07/11/23 Range/Units 07:53 01:57 Total Bilirubin 0.4 0.7 (0.15-1.2) mg/dL AST 14 13 (0-32) U/L ALT 6 7 (0-33) U/L Alkaline Phosphatase 88 105 (35-105) U/L Albumin 2.5 L 2.7 L (3.5-5.2) g/dL Urine 07/10/23 Range/Units 10:35 Urine Color Yellow (Yellow) Urine Appearance Clear (CLEAR) Urine pH 7 (5-7) Ur Specific [place] 1.005 (1.005-1.030) Urine Protein Neg (Negative) Urine Glucose (UA) Norm (Normal) Urine Ketones Negative (Negative) Urine Nitrate Negative (Negative) Urine Bilirubin Neg (Negative) Ur Leukocyte Esterase Negative (Negative) Blood Bank 07/10/23 08:07 Blood Type O Positive Rho(D) Type Positive Antibody Screen Negative Coags 07/10/23 07:52 PT 15.10 H INR 1.15 APTT 32.2 Cardiac Studies: No Data to Display
[2023-07-11 10:26] LABS: Slide Review Slide Review Perform
[2023-07-11 10:27] LABS: Absolute Eosinophils 0.3 10^3/cmm (0.0-0.7); Absolute Neutrophil 7.4 10^3/cmm (1.4-6.5); Absolute Segmented Neutrophil 6.3 10/cmm (1.6-7.1); Band Neutrophils Absolute 1.1 10^3/cmm (0.0-1.2); Eosinophils 3 %; Lymphocytes 18 %; Lymphocytes Absolute 2.9 10^3/cmm (1.2-3.4); Monocytes Absolute 0.2 10^3/cmm (0.1-0.6); Platelet Estimate Normal (Normal); Segmented Neutrophils 58 %; Total Cells Counted 100 (0-100)
[2023-07-11] MEDS: sodium chloride 0.9% 1,000 ML 30 ML IV (10:28)
--- NOTE | 2023-07-11 16:11 | ANE.PACU2 ---
Inpatient post-anesthesia follow up: Airway intact: Yes Vital signs: Temperature 99.5 F Pulse Rate [Orthos tatic 132 Standing] Pulse Rate [Orthos tatic 117 Sitting] Pulse Rate [Orthos tatic Lying] 115 Pulse Rate 113 Respiratory Rate 28 Blood Pressure [Or thostatic 85/61 Standing] Blood Pressure [Or thostatic 101/73 Sitting] Blood Pressure [Or thostatic 119/76 Lying] Blood Pressure 148/70 Pulse Oximetry 97 Oxygen Delivery Me thod Room Air Oxygen Flow Rate Fraction of Inspir ed Oxygen Hydration adequate: Yes Nausea and vomiting: No Pain level: 2 Mental status: Baseline
--- NOTE | 2023-07-11 16:38 | PM.MISC ---
Miscellaneous Note Purpose of Documentation: Brief update on patient care Note: After endoscopy done this morning, I have talked to the primary team regarding the findings. It is apparent that patient has an acute flareup of inflammatory bowel disease, most likely Crohn's disease due to findings supporting the upper GI and lower GI evaluation. Biopsies were taken. The mucosa of the lower GI tract appeared raw, extremely friable, there was extensive mucosal sloughing on the lumen. I have recommended to start patient on steroids for the flare of treatment, but she will require a GI evaluation soon as she is discharged from the hospital for management of her inflammatory bowel disease.
[2023-07-11] MEDS: dexamethasone 10 mg/mL INJ 6 MG IVP (17:11)
[2023-07-11] MEDS: piperacillin-tazobactam 3.375 GM in sodium chloride 0.9% (plus) 50 ML IV ×2 (17:18→23:58)
--- NOTE | 2023-07-11 18:43 | P.PN_ITS ---
Subjective Subjective: Hemoglobin improved to 10 overnight. Patient is tachycardic with heart rate ranging up to 1 20-130. It is sinus tachycardia. Results of upper and lower GI endoscopy as described below. No new complaints. No abdominal pain currently. Vitals/I&O/Wt Last Vital Signs Temp 99.5 F 07/11/23 09:52 Pulse 108 H 07/11/23 17:16 Resp 12 07/11/23 17:16 BP 147/86 07/11/23 13:00 Pulse Ox 98 07/11/23 12:30 O2 Del Method Room Air 07/11/23 09:52 07/11/23 07/11/23 07/11/23 06:59 14:59 22:59 Intake Total 660 / 660 136 / 2019 Balance 660 / 660 136 / 2019 Weight last 48 hrs Weight 90.718 kg Physical Exam Narrative: General: No acute distress, AO x3 HEENT: PERRLA, pupils bilaterally equal and reactive, pallors not present Chest: Normal vesicular breath sounds, no added sounds, equal good air entry bilaterally CVS: S1-S2 regular, no murmurs, no tachycardia, no gallops, no rubs Abdomen: Soft, nontender, no organomegaly, bowel sounds present Neuro: No focal deficits, no facial deformity, AO x3, power 5/5 in all limbs Data 07/11/23 09:00 07/11/23 01:57 A&P Assessment and plan (1) Anemia: Qualifiers: Anemia type: unspecified type Qualified Code(s): D64.9 - Anemia, unspecified (2) Orthostatic dizziness: (3) GI bleeding: Plan 32F with hematochezia ongoing for about 2 months p/w increasing generalized weakness Hb worsened today at ~6 upon presentation, status post 2 packed red blood cell transfusion, Hemoglobin at 10 this morning. T max to 99F during transfusion, pre medicate with tylenol Status post upper and flex sigmoidoscopy today. She was noted to have changes consistent with IBD diffusely. In the mid sigmoid colon, distal sigmoid colon and rectum there was severe diffuse Crohn's disease noted with rectal bleeding. Upper GI scope showed multiple nodules within the antrum of the stomach which were not actively bleeding. Localized the gastric folds were present and in the prepyloric area of severe acute gastritis was seen. Findings suspicious for inflammatory bowel disease. Peripheral [facility] screen has been sent this morning currently pending. Patient will need referral to outpatient executor of estate In the interim we will start patient on systemic steroids and prescribe taper at discharge. She is anxious to return home, however given her persisting t achycardia counseled that would be best to monitor over the next 24 hours. Sinus tachycardia noted on telemetry. Start metoprolol 12.5 mg p.o. twice daily and monitor for response. Continue Protonix 40 mg IV every 12 hours Recheck hemoglobin with a.m. labs Attestations Medical Necessity Statement*: Status post endoscopic evaluation today Coding Level of Care Code Acute Code for Chg Fwd Diagnoses Anemia D64.9 Anemia type: unspecified type Orthostatic dizziness R42 GI bleeding K92.2
[2023-07-11 20:26] LABS: Hematocrit 24.8 % (36-47); Mean Corpuscular HGB Conc 29.4 g/dL (30-55); Mean Corpuscular Hemoglobin 23.2 pg (27-33); Mean Platelet Volume 9.8 fL (7.4-10.4); Platelet Count 256 10^3/cmm (157-399); Red Blood Count 3.14 10^6/uL (3.85-5.65); Red Cell Distribution Width 21.3 % (12.1-15.1); White Blood Count 6.97 10^3/uL (3.29-11.43)
[2023-07-11] MEDS: metoprolol tartrate 25 mg Tablet 12.5 MG PO (20:40)
[2023-07-11 20:50] LABS: Slide Review Slide Review Perform
[2023-07-11] MEDS: HYDROmorphone 1 mg/mL INJ 1 mL IVP (21:27)
[2023-07-12] VITALS (23 sets, daily range): BP systolic 93–143; BP diastolic 58–89; PULSE 77–115; RESP 14–26; TEMP 36.7–37.2; O2SAT 89–100
[2023-07-12] MEDS: HYDROmorphone 1 mg/mL INJ 1 mL IVP ×2 (01:00→08:33)
[2023-07-12] MEDS: dexamethasone 10 mg/mL INJ 6 MG IVP ×2 (03:14→15:37)
[2023-07-12] MEDS: sodium chloride 0.9% 1,000 ML 100 ML IV (03:15)
[2023-07-12 05:07] LABS: Basophils % 0.6 %; Hematocrit 24.1 % (36-47); Lymphocytes # 1.3 10^3/uL (0.8-4.8); Lymphocytes % 20.7 %; Monocytes # 0.6 10^3/uL (0.2-0.9); Monocytes % 9.9 %; Neutrophils # 4.21 10^3/uL (1.8-7.7); Neutrophils % 67.5 %; Nucleated Red Blood Cells % 0.3 %; Platelet Count 218 10^3/cmm (157-399); Red Blood Count 3.05 10^6/uL (3.85-5.65); Red Cell Distribution Width 21.4 % (12.1-15.1); White Blood Count 6.24 10^3/uL (3.29-11.43)
[2023-07-12] MEDS: sertraline 100 mg Tablet PO (05:17)
[2023-07-12 05:25] LABS: Alanine Aminotransferase < 5 U/L (0-33); Albumin Level 1.8 g/dL (3.5-5.2); Alkaline Phosphatase 72 U/L (35-105); Anion Gap 12.2 (5-19); Aspartate Amino Transferase 9 U/L (0-32); Blood Urea Nitrogen 7 mg/dL (6-20); Calcium 7.2 mg/dL (8.5-10.5); Carbon Dioxide 24 mmol/L (22-29); Chloride 100 mmol/L (98-107); Globulin 3.7 g/dL (1.3-4.6); Glomerular Filtration Rate 82.6 mL/min (90-130); Glucose 197 mg/dL (65-115); Osmolality Calculated 277 mOsm/kg (285-295); Potassium 4.2 mmol/L (3.5-5.1); Sodium 132 mmol/L (136-145); Total Bilirubin 0.3 mg/dL (0.15-1.2); Total Protein 5.5 g/dL (6.6-8.7)
[2023-07-12 05:39] LABS: Slide Review Slide Review Perform
[2023-07-12] MEDS: piperacillin-tazobactam 3.375 GM in sodium chloride 0.9% (plus) 50 ML IV (08:21)
[2023-07-12] MEDS: metoprolol tartrate 25 mg Tablet 12.5 MG PO (08:22)
[2023-07-12] MEDS: pantoprazole 40 mg SDV IVP (08:24)
[2023-07-12 12:05] LABS: CENTROMERE B ANTIBODY <1.0 NEG AI (<1.0 NEG); JO-1 ANTIBODY <1.0 NEG AI (<1.0 NEG); RNP ANTIBODY <1.0 NEG AI (<1.0 NEG); SCL-70 ANTIBODY <1.0 NEG AI (<1.0 NEG); SJOGREN'S ANTIBODY (SS-A) <1.0 NEG AI (<1.0 NEG); SM ANTIBODY <1.0 NEG AI (<1.0 NEG); SS-B <1.0 NEG AI (<1.0 NEG)
[2023-07-12 12:45] LABS: COMPLEMENT COMPONENT C3C 157 mg/dL (83-193); COMPLEMENT COMPONENT C4C 37 mg/dL (15-57)
[2023-07-12] MEDS: diphenhydrAMINE 50 mg/mL SDV 1mL 12.5 MG IVP (13:02)
[2023-07-12] MEDS: acetaminophen 325 mg Tablet 650 MG PO (13:07)
[2023-07-12 14:39] LABS: COMPLEMENT, TOTAL (CH50) 56 U/mL (31-60)
--- NOTE | 2023-07-12 15:32 | PM.DCS ---
Discharge Providers Date of Admission: 07/10/23 11:54 Date of Discharge: July 12, 2023 Attending Provider at Admission: Divina Campos MD Attending Provider at Discharge: Divina Campos MD Primary Care Provider: Kendrick Nascimento MD Diagnoses at Discharge Discharge Diagnosis (1) Anemia: Status: Acute Qualifiers: Anemia type: unspecified type Qualified Code(s): D64.9 - Anemia, unspecified (2) Orthostatic dizziness: Status: Acute (3) GI bleeding: Status: Acute Reason for Visit Reason for Visit: no energy,dizzy,headache Hospital Course Hospital Course Elizabeth Adames is a 32 year old female with a recent history of hematochezia that has been going on for the past 2 months, recent diagnosis of colitis p/w worsening abdominal pain, increasing generalized weakness and worsened anemia with Hb down to ~6 from 8 recently. She was planned for an outpatient colonoscopy in August but came to ERfor worsening weakness. She is intermittently tachycardic on admission and had episode of pre syncope in the ER per ERP.She was admitted to the ICU for close monitoring given her episode of presyncope. She received transfusion with 3 rapid packed red blood cell during the course of admission for symptomatic anemia. Her heart rate continued to be elevated with a baseline of 1 20-1 30 for which low-dose metoprolol was started at 12.5 mg p.o. twice daily. Following this initiation her heart rate has been well controlled between 80 to 90 bpm. She underwent a flexible sigmoidoscopy and upper GI endoscopy on July 11, 2023 which showed that in the mid and distal sigmoid colon and in the rectum there was changes suggestive of severe Crohn's disease. In the antrum there were multiple nodules noted in stomach. Localized thick gastric folds were present. In the prepyloric area severe acute gastritis was seen which was erythematous. No abnormalities were noted in the duodenum. She was started on systemic steroids for acute Crohn's flare. Discussed with patient that we do not have availability of gastroenterology services at [facility]. Since she is stabilized currently, she is being discharged from the hospital today in improved condition with referral to follow-up with GI services at [facility]. Biopsy results are currently awaited. If Crohn's is confirmed she will likely need to start biologicals. #Course of tapered dose of prednisone starting with 1 mg/kg every 24 hours has been prescribed, patient recommended to follow-up with primary care provider within 1 week. Will likely need to maintain steroids until follow-up with gastroenterology. Physical Exam Narrative: General: No acute distress, AO x3 HEENT: PERRLA, pupils bilaterally equal and reactive, pallors not present Chest: Normal vesicular breath sounds, no added sounds, equal good air entry bilaterally CVS: S1-S2 regular, no murmurs, no tachycardia, no gallops, no rubs Abdomen: Soft, nontender, no organomegaly, bowel sounds present Neuro: No focal deficits, no facial deformity, AO x3, power 5/5 in all limbs Discharge Data Studies Completed and Pending Pending at discharge Category Date Time Status BRONSON SCREEN [BRONSON Profile Rheumatology] Routine Lab 07/11/23 01:57 Results Leukocyte Reduced RBC Stat Lab 07/10/23 08:07 Results Type and Screen Routine Lab 07/10/23 08:07 Results Pathology: Surgical [PTH] Routine Pth 07/11/23 10:55 Received Laboratory Results WBC 6.24 10^3/uL (3.29-11.43) 07/12/23 04:17 Corrected WBC Cancelled 07/11/23 17:54 RBC 3.05 10^6/uL (3.85-5.65) L 07/12/23 04:17 Hgb 7.00 g/dL (11.27-16.99) L 07/12/23 04:17 Hct 24.1 % (36-47) L 07/12/23 04:17 MCV 79.0 fl (85-98) L 07/12/23 04:17 MCH 23.0 pg (27-33) L 07/12/23 04:17 MCHC 29.0 g/dL (30-55) L 07/12/23 04:17 RDW 21.4 % (12.1-15.1) H 07/12/23 04:17 Plt Count 218 10^3/cmm (157-399) 07/12/23 04:17 MPV 10.0 fL (7.4-10.4) 07/12/23 04:17 Gran % Cancelled 07/11/23 17:54 Neut % (Auto) 67.5 % 07/12/23 04:17 Lymph % (Auto) 20.7 % 07/12/23 04:17 [place] % (Auto) 9.9 % 07/12/23 04:17 Eos % (Auto) 0.0 % 07/12/23 04:17 Baso % (Auto) 0.6 % 07/12/23 04:17 Neut # (Auto) 4.21 10^3/uL (1.8-7.7) 07/12/23 04:17 Lymph # (Auto) 1.3 10^3/uL (0.8-4.8) 07/12/23 04:17 [place] # (Auto) 0.6 10^3/uL (0.2-0.9) 07/12/23 04:17 Eos # (Auto) 0.0 10^3/uL (0.0-0.8) 07/12/23 04:17 Baso # (Auto) 0.0 10^3/uL (0.0-0.1) 07/12/23 04:17 Absolute Gran (auto) Cancelled 07/11/23 17:54 Nucleated RBC % (auto) 0.3 % 07/12/23 04:17 Total Counted 100 (0-100) 07/11/23 09:00 Atypical Lymphs % 9.0 % (0-5) H 07/11/23 09:00 Absolute Neutrophils 7.4 10^3/cmm (1.4-6.5) H 07/11/23 09:00 Segmented Neutrophils 58 % 07/11/23 09:00 Abs Segm Neuts (Man) 6.3 10/cmm (1.6-7.1) 07/11/23 09:00 Band Neutrophils 10.0 % 07/11/23 09:00 Abs Band Neuts (Man) 1.1 10^3/cmm (0.0-1.2) 07/11/23 09:00 Absolute Lymphocytes 2.9 10^3/cmm (1.2-3.4) 07/11/23 09:00 Lymphocytes (Manual) 18 % 07/11/23 09:00 Monocytes (Manual) 2.0 % 07/11/23 09:00 Absolute Monocytes 0.2 10^3/cmm (0.1-0.6) 07/11/23 09:00 Eosinophils (Manual) 3 % 07/11/23 09:00 Absolute Eosinophils 0.3 10^3/cmm (0.0-0.7) 07/11/23 09:00 Basophils (Manual) 0.0 % 07/11/23 09:00 Absolute Basophils 0.0 10^3/cmm (0.0-0.2) 07/11/23 09:00 Nucleated RBCs # 0.0 /100WBC 07/12/23 04:17 Smudge Cells Trace 07/11/23 01:57 Platelet Estimate Normal (Normal) 07/11/23 09:00 PT 15.10 SECONDS (12.1-14.9) H 07/10/23 07:52 INR 1.15 (0.8-1.2) 07/10/23 07:52 APTT 32.2 SECONDS (23.9-36.7) 07/10/23 07:52 Sodium 132 mmol/L (136-145) L 07/12/23 04:17 Potassium 4.2 mmol/L (3.5-5.1) 07/12/23 04:17 Chloride 100 mmol/L (98-107) 07/12/23 04:17 Carbon Dioxide 24 mmol/L (22-29) 07/12/23 04:17 Anion Gap 12.2 (5-19) 07/12/23 04:17 BUN 7 mg/dL (6-20) 07/12/23 04:17 Creatinine 0.8 mg/dL (0.5-0.9) 07/12/23 04:17 GFR Calculation 82.6 mL/min (90-130) L 07/12/23 04:17 Glucose 197 mg/dL (65-115) H 07/12/23 04:17 Calculated Osmolality 277 mOsm/kg (285-295) L 07/12/23 04:17 Calcium 7.2 mg/dL (8.5-10.5) L 07/12/23 04:17 Total Bilirubin 0.3 mg/dL (0.15-1.2) 07/12/23 04:17 AST 9 U/L (0-32) 07/12/23 04:17 ALT < 5 U/L (0-33) 07/12/23 04:17 Alkaline Phosphatase 72 U/L (35-105) 07/12/23 04:17 Total Protein 5.5 g/dL (6.6-8.7) L 07/12/23 04:17 Albumin 1.8 g/dL (3.5-5.2) L 07/12/23 04:17 Globulin 3.7 g/dL (1.3-4.6) 07/12/23 04:17 Lipase 60 U/L (13-60) 07/10/23 07:53 HCG, Qual Negative (Negative) 07/10/23 07:53 Ser , Semi-Qnt 1.00 mIU/mL 07/11/23 09:00 Urine Color Yellow (Yellow) 07/10/23 10:35 Urine Appearance Clear (CLEAR) 07/10/23 10:35 Urine pH 7 (5-7) 07/10/23 10:35 Ur Specific [place] 1.005 (1.005-1.030) 07/10/23 10:35 Urine Protein Neg (Negative) 07/10/23 10:35 Urine Glucose (UA) Norm (Normal) 07/10/23 10:35 Urine Ketones Negative (Negative) 07/10/23 10:35 Urine Blood Neg (Negative) 07/10/23 10:35 Urine Nitrate Negative (Negative) 07/10/23 10:35 Urine Bilirubin Neg (Negative) 07/10/23 10:35 Urine Urobilinogen Norm mg/dL (Negative) 07/10/23 10:35 Ur Leukocyte Esterase Negative (Negative) 07/10/23 10:35 LIS-1 Antibody <1.0 neg AI (<1.0 NEG) 07/11/23 01:57 SS-A Antibody <1.0 neg AI (<1.0 NEG) 07/11/23 01:57 SS-B Antibody <1.0 neg AI (<1.0 NEG) 07/11/23 01:57 Sm (Guajardo) Antibody <1.0 neg AI (<1.0 NEG) 07/11/23 01:57 LABORATORY MANAGER Antibody <1.0 neg AI (<1.0 NEG) 07/11/23 01:57 Scl-70 Antibody <1.0 neg AI (<1.0 NEG) 07/11/23 01:57 Centromere B Antibody <1.0 neg AI (<1.0 NEG) 07/11/23 01:57 Complement C3c 157 mg/dL (83-193) 07/11/23 01:57 Complement C4c 37 mg/dL (15-57) 07/11/23 01:57 CH50 Classical Pathway 56 U/mL (31-60) 07/11/23 01:57 Blood Type O Positive 07/10/23 08:07 Rho(D) Type Positive 07/10/23 08:07 Antibody Screen Negative 07/10/23 08:07 Crossmatch See Detail 07/10/23 08:07 Vitals Last Vital Signs Temp 98.4 F 07/12/23 14:12 Pulse 84 07/12/23 14:12 Resp 20 H 07/12/23 14:12 BP 142/73 07/12/23 13:12 Pulse Ox 97 07/12/23 14:12 O2 Del Method Room Air 07/12/23 11:23 Discharge Plan Discharge Patient Disposition: Home Condition: Stable Prescriptions: New metoprolol tartrate 25 mg Tablet 12.5 mg PO BID@0900,2100 30 Days Qty: 15 0RF iron 159 mg (45 mg iron) tablet extended release 159 mg PO DAILY Qty: 30 0RF prednisone 10 mg tablet See Taper PO DAILY Qty: 50 0RF Taper: predniSONE 60-10 80 mg Daily for 2 Days and 0 Hour 60 mg Daily for 2 Days and 0 Hour 40 mg Daily for 2 Days and 0 Hour 30 mg Daily for 2 Days and 0 Hour 20 mg Daily for 2 Days and 0 Hour 10 mg Daily for 2 Days and 0 Hour amoxicillin-pot clavulanate 875-125 mg tablet 1 tab PO BID 5 Days Qty: 10 0RF Continued sertraline 100 mg tablet 100 mg PO QAM alprazolam 0.5 mg tablet 0.5 mg PO BID PRN (Reason: Anxiety) pantoprazole [Protonix] 40 mg tablet,delayed release (DR/EC) 40 mg PO BID 42 Days Qty: 84 1RF hydrocodone-acetaminophen 5-325 mg tablet 1 tab PO Q6H PRN (Reason: pain (scale score 7-10)) Qty: 14 0RF ondansetron 4 mg tablet,disintegrating 4 mg PO Q8H PRN (Reason: nausea and vomiting) Qty: 10 0RF Discontinued ibuprofen 200 mg Tablet 800 mg PO Q6H PRN (Reason: Pain) Discharge Orders: Discharge Order (Routine); Ordered 07/12/23 Ordered By: Divina Campos Referrals: GI, SANCHEZ [Other] - 2 weeks Kendrick Nascimento MD [Primary Care Provider] - Patient Instructions: GI Discharge Instructions, Opioid Safety Discharge Attestations Time Spent in Discharge Care*: greater than 30 min Quality Metrics Clinical Quality Measures [ No reported AMI, CVA or VTE this stay] Coding Level of Care Code Acute Code for Chg Fwd Diagnoses Anemia D64.9 Anemia type: unspecified type Orthostatic dizziness R42 GI bleeding K92.2
--- NOTE | 2023-07-12 16:05 | PC.NURSE ---
Patient received discharge orders. All IVs removed. Patients prescriptions sent to preferred pharmacy, all discharge instructions reviewed with patient who verbalized understandings. Patient will exit to main exit via w/c with staff and family
[2023-07-15 10:24] LABS: THYROID PEROXIDASE ANTIBODIES <1 IU/mL (<9)
[2023-07-15 10:29] LABS: ANA SCREEN, IFA NEGATIVE (NEGATIVE)
[2023-07-19 18:14] LABS: DNA AB (DS) CRITHIDIA,IFA NEGATIVE (NEGATIVE)
== END 2023-07-12 16:30 | disposition home or self-care (01) | DRG 385 ==
LOC: ER 10:17 → ICU 11:55
PROVIDERS: Surgery; Admitting Provider Student in an Organized Health Care Education/Training Program; Emergency Provider Physician Assistant; PCP Family Medicine; Visit Provider Student in an Organized Health Care Education/Training Program
PROC: 0DJ08ZZ Inspection of Upper Intestinal Tract, Via Natural or Artificial Opening Endoscopic (ICD-10-PCS; CPT 43235; principal; 2023-07-11 09:50)
PROC: 0DJD8ZZ Inspection of Lower Intestinal Tract, Via Natural or Artificial Opening Endoscopic (ICD-10-PCS; CPT 45378; 2023-07-11 09:50)
DX: K50.111 Crohn's disease of large intestine with rectal bleeding (principal); K29.01 Acute gastritis with bleeding; K52.9 Noninfective gastroenteritis and colitis, unspecified; D64.9 Anemia, unspecified; R55 Syncope and collapse; K29.00 Acute gastritis without bleeding; Z79.891 Long term (current) use of opiate analgesic; Z87.891 Personal history of nicotine dependence; R00.0 Tachycardia, unspecified
CPT/HCPCS: 36415; 36430; 43239; 45331; 80053; 81003; 83690; 84702; 84703; 85007; 85014; 85018; 85025; 85610; 85730; 86160; 86162; 86235; 86255; 86376; 86850; 86900; 86920; 88305; 88342; 93005; 96374; 96375; 99285; C9113; J1100; J1170; J1200; J2270; J2405; J2543; J2704; J3010; J7030; P9016; P9045

== ENCOUNTER 2023-08-19 17:20 | Inpatient (IN) | payer MEDICAID, SELFPAY ==
[2023-08-19] VITALS (8 sets, daily range): BP systolic 112–126; BP diastolic 64–97; PULSE 104–138; RESP 14–17; TEMP 36.8; O2SAT 96–100; BMI 30.5
--- NOTE | 2023-08-19 17:48 | ECG_ITS ---
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 Measurements Intervals [place] Rate: 139 P: 65 MD: 117 QRS: 0 QRSD: 69 T: 36 QT: 277 QTc: 421 Interpretive Statements SINUS TACHYCARDIA WITH SHORT MD INTERVAL LOW QRS VOLTAGE IN PRECORDIAL LEADS [QRS DEFLECTION < 1.0 mV IN CHEST LEADS] Compared to ECG 07/10/2023 14:49:34 Short MD interval now present Low QRS voltage now present Sinus rhythm no longer present Electronically Signed On 08-19-2023 23:43:14 CDT by Philippe Spicer M.D. [id number]
--- NOTE | 2023-08-19 18:08 | ED_ITS ---
HPI - Recheck/Abnormal Lab/Rx General: Chief Complaint: Recheck/Abnormal Lab/Rx Stated Complaint: blood work was bad doc sent her up Time Seen by Provider: 08/19/23 17:36 Source: patient Mode of arrival: ambulatory Limitations: no limitations History of Present Illness: 32-year-old female who states she has had chronic GI bleeding states that concerned that she may have Crohn's she states she does have chronic anemia as well as states over the last 2 days she has been having much increased and yana crisostomo has had some lightheaded episodes as well. Her PCP is in her. She is concerned her and she may be having worsening anemia. She denies any severe pain where she had some diffuse abdominal cramping. She states she has had some intermittent GI bleeding no large amounts of bleeding. Review of Systems Const: Reports: fatigue and malaise; Denies: fever(s) or chills ENMT: Denies: throat pain or dental pain Card: Denies: chest pain Resp: Denies: dyspnea GI: Reports: hematochezia; Denies: abdominal pain, nausea, vomiting or diarrhea Musc: Denies: neck pain or back pain Skin/Breast: Denies: rash Neuro: Denies: headache(s) PFSH ED PFSH: Medical History Mild endometriosis (~04/24/23) Noted on the left round ligament at the time of laparoscopy for sterilization; incidental finding- Osei No pertinent past medical history neghx: htn,dm,thyroid,dvt/pe PCP: Dr. Nascimento Surgical History History of laparoscopy (~04/24/23) bilateral salpingectomy- performed by Dr. Franz at [facility]; mild endometriosis noted and treated. Family History Denies family history of Colon cancer Ovarian cancer Diabetes Heart disease Hypercholesteremia Breast cancer Hypertension Uterine cancer Thyroid disease Stroke Social History Smoking and tobacco status: former smoker Alcohol intake: current Alcohol intake frequency: holidays/special occasions only Physical Exam Const: COMMON NORMALS: patient oriented x3 GENERAL APPEARANCE: ill appearing HENMT: COMMON NORMALS: normocephalic and atraumatic HEAD & SCALP: normocephalic and atraumatic Eye: COMMON NORMALS: conjunctivae normal CONJUNCTIVA: Yes conjunctivae normal Neck/C-Spine: COMMON NORMALS: full ROM and supple Chest: COMMONS NORMALS: normal inspection of the chest and normal palpation of entire chest wall Resp: COMMON NORMALS: normal respiratory effort, No retractions, No use of a ccessory muscles and clear to auscultation bilaterally AUSCULTATION: clear to auscultation bilaterally Cardio: COMMON NORMALS: regular rhythm and No murmurs present (Cardio) RATE: tachycardic RHYTHM: regular rhythm GI: COMMON NORMALS: Normal to inspection, nondistended, normoactive bowel sounds present, Soft to palpation, non-tender and no masses PALPATION: Yes Soft to palpation Extremity: COMMON NORMALS: normal to inspection and full ROM Neuro: COMMON NORMALS: patient oriented x3, moves all extremities and no focal motor deficits Psych: COMMON NORMALS: mental status grossly normal, Normal thought process present and cooperative THOUGHT PROCESS: Normal thought process present Skin: COMMON NORMALS: no rashes or lesions noted and no wounds GENERAL SKIN EXAM: no rashes or lesions noted Course Vital Signs: Vital signs: Vital Signs Temperature 98.3 F 08/19/23 17:37 Pulse Rate 138 H 08/19/23 17:37 Respiratory Rate 17 08/19/23 19:26 Blood Pressure 114/93 08/19/23 19:01 Pulse Oximetry 100 08/19/23 19:26 Oxygen Delivery Me thod Room Air 08/19/23 17:37 MDM - Recheck/Abnormal Lab/Rx Medical Decision Making Patient presents here she had near syncopal events feeling very weak she is dehydrated has hyponatremia likely from diarrhea she is not anemic here given IV fluids her heart rate has improved spoke to hospitalist will admit for observ ation. Medical Records I reviewed the patient's medical records. Lab Data I reviewed the patient's lab results. 08/19/23 18:18 08/19/23 18:18 Radiology Impressions Abdomen/Pelvis CT 08/19/23 18:36 IMPRESSION: 1. Nonspecific enterocolitis, as described above. 2. Additional findings, as above. Laboratory Results WBC 18.66 10^3/uL (3.29-11.43) H 08/19/23 18:18 RBC 3.93 10^6/uL (3.85-5.65) 08/19/23 18:18 Hgb 9.80 g/dL (11.27-16.99) L 08/19/23 18:18 Hct 33.1 % (36-47) L 08/19/23 18:18 MCV 84.2 fl (85-98) L 08/19/23 18:18 MCH 24.9 pg (27-33) L 08/19/23 18:18 MCHC 29.6 g/dL (30-55) L 08/19/23 18:18 RDW 21.9 % (12.1-15.1) H 08/19/23 18:18 Plt Count 543 10^3/cmm (157-399) H 08/19/23 18:18 MPV 8.7 fL (7.4-10.4) 08/19/23 18:18 Neut % (Auto) 64.1 % 08/19/23 18:18 Lymph % (Auto) 24.9 % 08/19/23 18:18 [place] % (Auto) 9.4 % 08/19/23 18:18 Eos % (Auto) 0.3 % 08/19/23 18:18 Baso % (Auto) 0.4 % 08/19/23 18:18 Neut # (Auto) 11.95 10^3/uL (1.8-7.7) H 08/19/23 18:18 Lymph # (Auto) 4.6 10^3/uL (0.8-4.8) 08/19/23 18:18 [place] # (Auto) 1.8 10^3/uL (0.2-0.9) H 08/19/23 18:18 Eos # (Auto) 0.1 10^3/uL (0.0-0.8) 08/19/23 18:18 Baso # (Auto) 0.1 10^3/uL (0.0-0.1) 08/19/23 18:18 Nucleated RBC % (auto) 0.1 % 08/19/23 18:18 Nucleated RBCs # 0.0 /100WBC 08/19/23 18:18 PT 15.30 SECONDS (12.1-14.9) H 08/19/23 18:18 INR 1.17 (0.8-1.2) 08/19/23 18:18 Sodium 125 mmol/L (136-145) L 08/19/23 18:18 Potassium 3.4 mmol/L (3.5-5.1) L 08/19/23 18:18 Chloride 92 mmol/L (98-107) L 08/19/23 18:18 Carbon Dioxide 23 mmol/L (22-29) 08/19/23 18:18 Anion Gap 13.4 (5-19) 08/19/23 18:18 BUN 11 mg/dL (6-20) 08/19/23 18:18 Creatinine 0.7 mg/dL (0.5-0.9) 08/19/23 18:18 GFR Calculation 96.4 mL/min (90-130) 08/19/23 18:18 Glucose 126 mg/dL (65-115) H 08/19/23 18:18 Calculated Osmolality 261 mOsm/kg (285-295) L 08/19/23 18:18 Lactic Acid 1.8 mmol/L (0.5-2.2) 08/19/23 18:18 Calcium 7.3 mg/dL (8.5-10.5) L 08/19/23 18:18 Total Bilirubin 0.4 mg/dL (0.15-1.2) 08/19/23 18:18 AST 12 U/L (0-32) 08/19/23 18:18 ALT 10 U/L (0-33) 08/19/23 18:18 Alkaline Phosphatase 141 U/L (35-105) H 08/19/23 18:18 Total Protein 5.7 g/dL (6.6-8.7) L 08/19/23 18:18 Albumin 1.6 g/dL (3.5-5.2) L 08/19/23 18:18 Globulin 4.1 g/dL (1.3-4.6) 08/19/23 18:18 HCG, Qual Negative (Negative) 08/19/23 18:18 Urine Color Yellow (Yellow) 08/19/23 19:33 Urine Appearance Sl hazy (CLEAR) A 08/19/23 19:33 Urine pH 6.5 (5-7) 08/19/23 19:33 Ur Specific [place] 1.000 (1.005-1.030) L 08/19/23 19:33 Urine Protein Neg (Negative) 08/19/23 19:33 Urine Glucose (UA) Norm (Normal) 08/19/23 19:33 Urine Ketones Negative (Negative) 08/19/23 19:33 Urine Blood 2+ (Negative) H 08/19/23 19:33 Urine Nitrate Negative (Negative) 08/19/23 19:33 Urine Bilirubin Neg (Negative) 08/19/23 19:33 Urine Urobilinogen Norm mg/dL (Negative) 08/19/23 19:33 Ur Leukocyte Esterase Negative (Negative) 08/19/23 19:33 Urine RBC 0-4 /hpf (0-2) H 08/19/23 19:33 Urine WBC 0-4 /hpf (0-5) H 08/19/23 19:33 Ur Squamous Epith Cells 0-4 /hpf (0-5) H 08/19/23 19:33 Amorphous Sediment Not Reportable 08/19/23 19:33 Urine Bacteria Trace /hpf (NONE) 08/19/23 19:33 Blood Type O Positive 08/19/23 18:18 Rho(D) Type Positive 08/19/23 18:18 Antibody Screen Negative 08/19/23 18:18 All radiology interpretation(s) finalized by discharge EKG Data EKG 1: I personally reviewed and interpreted this EKG as follows: EKG interpretation date: 08/19/23 EKG interpretation time: 17:51 Interpretation: sinus tach hr [address] or t wave abnormalities qrs 69 qtc 358 Discharge Plan Discharge Patient Disposition: Admitted As Inpatient Clinical Impression: Acute hyponatremia, Acute dehydration Condition: Stable Prescriptions: No Action sertraline 100 mg tablet 100 mg PO QAM alprazolam 0.5 mg tablet 0.5 mg PO BID PRN (Reason: Anxiety) pantoprazole [Protonix] 40 mg tablet,delayed release (DR/EC) 40 mg PO BID 42 Days Qty: 84 1RF hydrocodone-acetaminophen 5-325 mg tablet 1 tab PO Q6H PRN (Reason: pain (scale score 7-10)) Qty: 14 0RF ondansetron 4 mg tablet,disintegrating 4 mg PO Q8H PRN (Reason: nausea and vomiting) Qty: 10 0RF prednisone 10 mg tablet See Taper PO DAILY Qty: 50 0RF Taper: predniSONE 60-10 80 mg Daily for 2 Days and 0 Hour 60 mg Daily for 2 Days and 0 Hour 40 mg Daily for 2 Days and 0 Hour 30 mg Daily for 2 Days and 0 Hour 20 mg Daily for 2 Days and 0 Hour 10 mg Daily for 2 Days and 0 Hour iron 159 mg (45 mg iron) tablet extended release 159 mg PO DAILY Qty: 30 0RF Referrals: Kendrick Nascimento MD [Primary Care Provider] - Coding Level of Care Code ED Dermatology Specialist for Syd Ramirez
[2023-08-19] MEDS: sodium chloride 0.9% 1,000 ML 999 ML IV (18:20)
[2023-08-19 18:31] LABS: Basophils # 0.1 10^3/uL (0.0-0.1); Basophils % 0.4 %; Eosinophils # 0.1 10^3/uL (0.0-0.8); Eosinophils % 0.3 %; Hematocrit 33.1 % (36-47); Lymphocytes # 4.6 10^3/uL (0.8-4.8); Lymphocytes % 24.9 %; Mean Corpuscular HGB Conc 29.6 g/dL (30-55); Mean Corpuscular Hemoglobin 24.9 pg (27-33); Mean Corpuscular Volume 84.2 fl (85-98); Mean Platelet Volume 8.7 fL (7.4-10.4); Monocytes # 1.8 10^3/uL (0.2-0.9); Monocytes % 9.4 %; Neutrophils # 11.95 10^3/uL (1.8-7.7); Neutrophils % 64.1 %; Nucleated Red Blood Cells % 0.1 %; Platelet Count 543 10^3/cmm (157-399); Red Blood Count 3.93 10^6/uL (3.85-5.65); Red Cell Distribution Width 21.9 % (12.1-15.1); White Blood Count 18.66 10^3/uL (3.29-11.43)
--- NOTE | 2023-08-19 18:36 | CTR_ITS ---
PROCEDURE INFORMATION: Exam: CT Abdomen And Pelvis Without Contrast Exam date and time: 08/19/2023 7:13 PM Age: 32 years old Clinical indication: Abdominal pain; Generalized; Prior surgery; Surgery date: 6+ months; Surgery type: Tubal; Additional info: Abd pain TECHNIQUE: Imaging protocol: Computed tomography of the abdomen and pelvis without contrast. Axial, coronal and sagittal reformatted images were created and reviewed. Radiation optimization: All CT scans at this facility use at least one of these dose optimization techniques: automated exposure control; mA and/or kV adjustment per patient size (includes targeted exams where dose is matched to clinical indication); or iterative reconstruction. REPORTING DATA: Count of CT and Cardiac NM exams in prior 12 months: This patient has received [address] and 0 known cardiac nuclear medicine studies in the 12 months prior to the current study. COMPARISON: CT abdomen pelvis w con* [id number] 06/23/2023 6:38 PM RADIATION DOSE METRICS: Total DLP (mGy-cm): 679 FINDINGS: Liver: Mild hepatomegaly. Diffuse hepatic steatosis. Gallbladder and bile ducts: No radiodense gallstones. No biliary ductal dilatation. Pancreas: Unremarkable. Spleen: Unremarkable. Adrenal glands: Normal. No mass. Kidneys and ureters: Nonobstructing left renal calculi. No hydronephrosis. Stomach and bowel: Long segment of small bowel wall thickening with associated mural and mesenteric edema in the lower abdomen. Diffuse colonic wall thickening with associated mural and pericolonic edema. No obstruction. No pneumatosis. Appendix: Normal. Intraperitoneal space: Small nonspecific free pelvic fluid, likely physiologic and/or reactive. No organized fluid collection. No free air. Vasculature: Unremarkable. No aneurysm. Lymph nodes: Small mesenteric lymph nodes, likely reactive. No pathologically enlarged lymph nodes. Urinary bladder: Unremarkable as visualized. Reproductive: Unremarkable. Bones/joints: No acute osseous abnormality. Mild degenerative changes. Soft tissues: Tiny, fat containing umbilical hernia. CT/CT abdomen pelvis wo con [id number] IMPRESSION: 1. Nonspecific enterocolitis, as described above. 2. Additional findings, as above.
[2023-08-19 18:38] LABS: INR 1.17 (0.8-1.2)
[2023-08-19 18:44] LABS: Alanine Aminotransferase 10 U/L (0-33); Albumin Level 1.6 g/dL (3.5-5.2); Alkaline Phosphatase 141 U/L (35-105); Anion Gap 13.4 (5-19); Aspartate Amino Transferase 12 U/L (0-32); Blood Urea Nitrogen 11 mg/dL (6-20); Calcium 7.3 mg/dL (8.5-10.5); Carbon Dioxide 23 mmol/L (22-29); Chloride 92 mmol/L (98-107); Globulin 4.1 g/dL (1.3-4.6); Glomerular Filtration Rate 96.4 mL/min (90-130); Glucose 126 mg/dL (65-115); Osmolality Calculated 261 mOsm/kg (285-295); Potassium 3.4 mmol/L (3.5-5.1); Sodium 125 mmol/L (136-145); Total Bilirubin 0.4 mg/dL (0.15-1.2); Total Protein 5.7 g/dL (6.6-8.7)
[2023-08-19] MEDS: iohexol 350 mg/mL 500 mL Btl (per mL) IV (18:53)
[2023-08-19 19:01] LABS: HCG, Serum Qual Negative (Negative)
[2023-08-19 19:02] LABS: Lactic Sepsis W/Reflex 1.8 mmol/L (0.5-2.2)
[2023-08-19] MEDS: morphine 4 mg/mL SDV 1 mL IVP (19:26)
[2023-08-19] MEDS: ondansetron 2 mg/ML SDV 2 mL 4 MG IVP ×2 (19:32→22:45)
[2023-08-19 19:57] LABS: Add Urine Microscopic? YES; Bacteria Urine TRACE /hpf; Bilirubin Urine Neg (Negative); Blood Urine 2+ (Negative); Glucose Urine UA Norm (Normal); Ketones Urine Negative (Negative); Leukocyte Esterase Urine Negative (Negative); Nitrate Urine Negative (Negative); Protein Urine Neg (Negative); RBC Urine 0-4 /hpf (0-2); Squamous Epithelial Cell Urine 0-4 /hpf (0-5); Urine Appearance SL Hazy (CLEAR); Urine Color Yellow (Yellow); Urobilinogen Urine Norm (Negative); WBC Urine 0-4 /hpf (0-5); pH Urine 6.5 (5-7)
[2023-08-19 19:58] LABS: Add Urine Culture? No
[2023-08-19 20:44] LABS: Magnesium 1.6 mg/dL (1.7-2.3)
--- NOTE | 2023-08-19 21:40 | P.HP_ITS ---
Providers/Chief Complaint Admitting Physician: Yakov Doss MD Primary Care Provider: Kendrick Nascimento MD Chief Complaint: blood work was bad doc sent her up History of Present Illness Elizabeth Adames is a 32 year old female with a past medical history of Crohn's disease, chronic anemia, GERD, who presents [facility] due to fatigue, malaise, bloody diarrhea, decreased appetite. Patient tells me that she has been diagnosed with Crohn's disease, she has an appointment with a GI doctor in [place] in October, she continues to have fatigue, malaise, poor appetite she is on steroids, prednisone 10 mg once daily, no fevers, no chills, reports persistent bloody diarrhea, she tells her that she came to the emergency room tonight as over the last few days, she has had lightheadedness, dizziness, and she worried that she has worsening of her anemia as the last time she was here she required a unit of blood, she does report a family history of ulcerative colitis on her father side, denies any trouble swallowing, denies any rectal fistulas Review of Systems Const: Denies: fever(s) or chills Card: Reports: lightheadedness; Denies: chest pain Resp: Denies: dyspnea GI: Reports: abdominal pain, nausea, bloating, GI cramping and hematochezia; Denies: vomiting : Denies: flank pain or difficulty voiding Neuro: Denies: headache(s) or numbness in extremities Medications/Allergies Home Medications Medication Instructions Recorded Confirmed Last Taken Type alprazolam 0.5 mg tablet 0.5 mg PO BID PRN Anxiety 03/12/23 08/19/23 08/17/23 History sertraline 100 mg tablet 100 mg PO QAM 03/12/23 08/19/23 08/18/23 History hydrocodone 5 mg-acetaminophen 325 1 tab PO Q6H PRN pain (scale score 06/23/23 08/19/23 07/18/23 Rx mg tablet 7-10) #14 tabs ondansetron 4 mg disintegrating 4 mg PO Q8H PRN nausea and 06/23/23 08/19/23 Unknown Rx tablet vomiting #10 tabs pantoprazole 40 mg tablet,delayed 40 mg PO BID 6 weeks #84 tabs 07/02/23 08/19/2323 Rx release (Protonix) ferrous sulfate, dried 159 mg (45 159 mg PO DAILY #30 tabs 07/12/23 08/19/23 08/18/23 Rx mg iron) tablet,extended release (iron ER) prednisone 10 mg tablet See Taper PO DAILY #50 tabs 07/12/23 08/19/23 08/18/23 Rx Allergies Allergy/AdvReac Type Severity Reaction Status Date / Time No Known Allergies Allergy Verified 07/10/23 08:51 PFSH Acute PFSH: Medical History Mild endometriosis (~04/24/23) Noted on the left round ligament at the time of laparoscopy for sterilization; incidental finding- Osei No pertinent past medical history neghx: htn,dm,thyroid,dvt/pe PCP: Dr. Nascimento Surgical History History of laparoscopy (~04/24/23) bilateral salpingectomy- performed by Dr. Franz at [facility]; mild endometriosis noted and treated. Family History Denies family history of Colon cancer Ovarian cancer Diabetes Heart disease Hypercholesteremia Breast cancer Hypertension Uterine cancer Thyroid disease Stroke Social History Smoking and tobacco status: former smoker Alcohol intake: current Alcohol intake frequency: holidays/special occasions only Vitals/I&O/Wt Last Vital Signs Temp 98.3 F 08/19/23 17:37 Pulse 114 H 08/19/23 21:33 Resp 17 08/19/23 19:26 BP 112/64 08/19/23 21:33 Pulse Ox 96 08/19/23 21:33 O2 Del Method Room Air 08/19/23 17:37 Weight last 48 hrs Weight 88.451 kg Physical Exam Const: COMMON NORMALS: no acute distress and patient oriented x3 HENMT: COMMON NORMALS: normocephalic HEAD & SCALP: normocephalic Eye: COMMON NORMALS: Equal, round and reactive pupils present and EOMs intact bilaterally Neck/C-Spine: COMMON NORMALS: no JVD Lymph: LYMPHATIC: no lymphadenopathy noted Resp: COMMON NORMALS: normal respiratory effort, No retractions, No use of accessory muscles and clear to auscultation bilaterally AUSCULTATION: clear to auscultation bilaterally Cardio: COMMON NORMALS: no JVD, regular rate, regular rhythm, S1 normal heart sound present and S2 normal heart sound present RATE: regular rate RHYTHM: regular rhythm HEART SOUNDS: S1 normal heart sound present and S2 normal heart sound present GI: COMMON NORMALS: Normal to inspection, nondistended, normoactive bowel so unds present, Soft to palpation, non-tender, No hepatosplenomegaly present, no masses and no bruits PALPATION: Yes Soft to palpation and Yes No hepatosplenomegaly present : COMMON NORMALS: Yes no CVA tenderness Extremity: COMMON NORMALS: capillary refill normal, no clubbing, cyanosis or edema, no calf tenderness and no pedal edema Neuro: COMMON NORMALS: patient oriented x3, CN's II-XII intact bilaterally, moves all extremities and no focal motor deficits Psych: COMMON NORMALS: mental status grossly normal Data 08/19/23 18:18 08/19/23 18:18 A&P Assessment and plan (1) Acute hyponatremia: (2) Acute dehydration: (3) Hematochezia: (4) Epigastric pain: (5) Exacerbation of Crohn's disease: (6) Hypokalemia: (7) Hypomagnesemia: (8) Sinus tachycardia: Plan Exacerbation of Crohn's disease, hematochezia, epigastric pain, abdominal pain -With dehydration -With hyponatremia -With hypomagnesemia -With hypokalemia CT scan abdomen pelvis Liver: Mild hepatomegaly. Diffuse hepatic steatosis. Gallbladder and bile ducts: No radiodense gallstones. No biliary ductal dilatation. Pancreas: Unremarkable. Spleen: Unremarkable. Adrenal glands: Normal. No mass. Kidneys and ureters: Nonobstructing left renal calculi. No hydronephrosis. Stomach and bowel: Long segment of small bowel wall thickening with associated mural and mesenteric edema in the lower abdomen. Diffuse colonic wall thickening with associated mural and pericolonic edema. No obstruction. No pneumatosis. Appendix: Normal. Intraperitoneal space: Small nonspecific free pelvic fluid, likely physiologic and/or reactive. No organized fluid collection. No free air. Vasculature: Unremarkable. No aneurysm. Lymph nodes: Small mesenteric lymph nodes, likely reactive. No pathologically enlarged lymph nodes. Urinary bladder: Unremarkable as visualized. Reproductive: Unremarkable. Bones/joints: No acute osseous abnormality. Mild degenerative changes. Soft tissues: Tiny, fat containing umbilical hernia. Plan -IV hydration -Stool studies -Potassium replacement, magnesium replacement -Dilaudid for pain control -Zofran and promethazine for nausea and vomiting -GI soft diet -Solu-Medrol 125 followed by 40 IV every 8 hours Enterocolitis, as above Leukocytosis -Likely reactive -Obtain blood cultures -UA -Chest x-ray -Per count, CRP, ESR -Obtain stool studies - Anemia -Likely second hematochezia secondary to Crohn's disease -Iron studies -Protonix, Carafate Hypoalbuminemia sinus tachycardia, likely secondary hydration, replace magnesium, replace potassium, telemetry monitoring Goals of care, full code CDs for DVT prophylaxis, anticoagulation relatively contraindicated given anemia, complaints of hematochezia Attestations Medical Necessity Statement*: Patient requires hospitalization, outpatient with observation, for exacerbation of Crohn's disease, acute hyponatremia, hypokalemia, hypomagnesemia, leukocytosis, anemia, hyperlipidemia, abdominal pain Diagnoses Acute hyponatremia E87.1 Acute dehydration E86.0 Hematochezia K92.1 Epigastric pain R10.13 Exacerbation of Crohn's disease K50.90 Hypokalemia E87.6 Hypomagnesemia E83.42 Sinus tachycardia R00.0
--- NOTE | 2023-08-19 21:48 | XRR_ITS ---
PROCEDURE INFORMATION: Exam: XR Chest Exam date and time: 08/19/2023 10:06 PM Age: 32 years old Clinical indication: Abnormal findings; Other: Leukocytosis TECHNIQUE: Imaging protocol: Radiologic exam of the chest. Views: 1 view. COMPARISON: CT abdomen pelvis w con* [id number] 08/19/2023 7:13 PM FINDINGS: Lungs: Lungs are clear. Pleural spaces: No pleural effusion. No pneumothorax. Heart/Mediastinum: Normal cardiomediastinal silhouette. Bones/joints: No acute osseous abnormality. XR/XR chest 1V portable [id number] IMPRESSION: No acute findings.
[2023-08-19] MEDS: magnesium sulfate premix 1 GM/100 ML PIGGYBACK IV (21:55)
[2023-08-19] MEDS: sucralfate 1 gm/10 mL Oral Liq UDC PO (21:56)
[2023-08-19] MEDS: sodium chloride 0.9% 1,000 ML 125 ML IV (21:56)
[2023-08-19] MEDS: methylPREDNISolone sod succ 125 MG in water for injection-sterile 2 ML 24 MG IVP (22:25)
[2023-08-19] MEDS: pantoprazole 40 mg SDV IVP (22:25)
[2023-08-19] MEDS: HYDROmorphone 1 mg/mL INJ 1 mL 0.5 MG IVP (22:45)
[2023-08-19] MEDS: ALPRAZolam 0.5 mg Tablet PO (22:45)
[2023-08-19 23:22] LABS: Erythrocyte Sedimentation Rate 2 mm/hr (0-15)
[2023-08-19] MEDS: lidocaine 1% 5 ML in potassium chloride premix 100 ML 52.5 ML IV (23:26)
[2023-08-19 23:35] LABS: INR 1.26 (0.8-1.2)
[2023-08-19 23:50] LABS: Procalcitonin 0.17 ng/mL (0-0.5); Thyroid Stimulating Hormone 1.91 uIU/mL (0.27-4.20)
[2023-08-20] VITALS (12 sets, daily range): BP systolic 111–149; BP diastolic 74–96; PULSE 83–102; RESP 16–18; TEMP 36.5–36.8; O2SAT 93–100
[2023-08-20] LABS: C Reactive Protein 27.7 mg/L (0.0-4.9)
[2023-08-20 00:16] LABS: Ferritin 19 ng/mL (15-150); Iron 12 ug/dL (37-145); Percent Saturation 13.4 % (20-50); Total Iron Binding Capacity 89 mcg/dl; Unsaturated Iron Binding 77 ug/dL (112-347)
[2023-08-20] MEDS: HYDROmorphone 1 mg/mL INJ 1 mL 0.5 MG IVP ×3 (04:36→22:27)
[2023-08-20] MEDS: sodium chloride 0.9% 1,000 ML 125 ML IV (04:43)
[2023-08-20] MEDS: promethazine 25 mg/mL SDV 1 mL 12.5 MG IM (04:44)
[2023-08-20] MEDS: sertraline 100 mg Tablet PO (04:55)
[2023-08-20 05:57] LABS: Basophils % 0.4 %; Lymphocytes # 1.3 10^3/uL (0.8-4.8); Lymphocytes % 13.8 %; Mean Corpuscular HGB Conc 28.6 g/dL (30-55); Mean Corpuscular Hemoglobin 24.6 pg (27-33); Mean Corpuscular Volume 86.2 fl (85-98); Mean Platelet Volume 8.9 fL (7.4-10.4); Monocytes # 0.1 10^3/uL (0.2-0.9); Monocytes % 1.3 %; Neutrophils # 8.06 10^3/uL (1.8-7.7); Neutrophils % 83.4 %; Nucleated Red Blood Cells % 0 %; Platelet Count 277 10^3/cmm (157-399); Red Blood Count 3.25 10^6/uL (3.85-5.65); Red Cell Distribution Width 21.7 % (12.1-15.1); White Blood Count 9.67 10^3/uL (3.29-11.43)
[2023-08-20 06:28] LABS: Blood Urea Nitrogen 9 mg/dL (6-20); Carbon Dioxide 20 mmol/L (22-29); Chloride 96 mmol/L (98-107); Glomerular Filtration Rate 96.4 mL/min (90-130); Glucose 183 mg/dL (65-115); Magnesium 1.9 mg/dL (1.7-2.3); Osmolality Calculated 265 mOsm/kg (285-295); Phosphorus 3.8 mg/dL (2.5-4.5); Sodium 126 mmol/L (136-145)
[2023-08-20 06:38] LABS: Anion Gap 14.5 (5-19); Potassium 4.5 mmol/L (3.5-5.1)
--- NOTE | 2023-08-20 09:26 | PC.CHAP ---
Pastoral Care Encounter/Spiritual Assessment Type of Contact [] Declined correspondence dictator visit [] Patient/Family/Request visit [] Outpatient visit [] Follow-up visit [] Physician referral [] Code/Alert [x] Routine visit [] Staff referral [] Actively dying [] Patient sleeping [] Family support [] [] Out of room [] Palliative care [] [] Receiving care in room [] Pre-surgical visit [] Trauma [] Long length of stay [] ICU visit [] Other: Relational/Emotional Strength [x] Patient feels connected with others/family/visitors/staff [] Distress [] Loneliness/isolation [] Abandonment Spirituality of Patient [x] Person of Kelly [] Attends Scientologist of their Kelly [x] Believes in Prayer [] Reads Bible or Caodaism materials [] There are Spiritual issues to be addressed [employer]ement Fittings Maker Interventions [x] Prayer [] Active listening [x] Non-anxious presence [x] Spiritual/emotional support [] Crisis/trauma care [] Spiritual counseling [] Bereavement support [] Provided bereavement packet [] Provided Bible/devotional materials [] Provided toy/stuffed animal, coloring book to patient or family member [] Provided Communion [] Anointing/[place] [] Salvation [x] Completed spiritual assessment [] Other: Impact on Illness or Injury [] Angry [] Fearful [] Anxious [] Often cries [] Exhaustion [] Unable to work [] Unable to attend samaritan [] Unable to walk/stand [] Unable to read [] Unable to drive [] Unable to eat/drink [] Unable to sleep [] Unable to be with family [] Patient intubated [] Other: Summary Time spent with patient 5 min
[2023-08-20] MEDS: sucralfate 1 gm/10 mL Oral Liq UDC PO ×2 (09:40→22:17)
[2023-08-20] MEDS: methylPREDNISolone sod succ 40 MG in water for injection-sterile 1 ML 12 MG IVP ×2 (09:41→20:51)
[2023-08-20] MEDS: pantoprazole 40 mg SDV IVP ×2 (09:41→20:50)
[2023-08-20] MEDS: ferrous sulfate EC 325 mg Tablet PO (09:41)
--- NOTE | 2023-08-20 13:04 | PC.NURSE ---
HR very briefly in the 150s. Patient is laying in bed. Asymptomatic at this time and VSS. Dr. Jj contacted and advised via text.
[2023-08-20] MEDS: alum-mag-hydroxide-sime 30 mL UDC 15 ML PO (13:57)
[2023-08-20 14:14] LABS: Potassium, Radom Urine 40 mmol/L; Urine Random Chloride 38 mmol/L
[2023-08-20 14:45] LABS: Urine Random Sodium < 10 mmol/L
--- NOTE | 2023-08-20 15:14 | P.PN_ITS ---
Subjective Subjective: Admitted overnight. H&P and labs appreciated. Today morning patient states she is feeling better than when she came in but still complaining of pain in the epigastric area, complaining of nausea but no vomiting. Denies any chest pain. Blood work appreciated for a stable hemoglobin as compared to last discharge at around 8, sodium of 126 Vitals/I&O/Wt Last Vital Signs Temp 98.0 F 08/20/23 12:00 Pulse 89 08/20/23 12:00 Resp 16 08/20/23 12:00 BP 111/74 08/20/23 12:00 Pulse Ox 98 08/20/23 12:00 O2 Del Method Room Air 08/20/23 12:00 08/20/23 08/20/23 08/20/23 06:59 14:59 22:59 Intake Total 1192.917 / 2794.917 1121 / 1121 Output Total 200 / 200 Balance 1192.917 / 2794.917 921 / 921 Weight last 48 hrs Weight 88.451 kg Physical Exam Const: COMMON NORMALS: no acute distress and patient oriented x3 HENMT: COMMON NORMALS: normocephalic HEAD & SCALP: normocephalic Eye: COMMON NORMALS: Equal, round and reactive pupils present and EOMs intact bilaterally PUPIL: Yes Equal, round and reactive pupils present Neck/C-Spine: COMMON NORMALS: no JVD Lymph: LYMPHATIC: no lymphadenopathy noted Resp: COMMON NORMALS: normal respiratory effort, No retractions, No use of accessory muscles and clear to auscultation bilaterally AUSCULTATION: clear to auscultation bilaterally Cardio: COMMON NORMALS: no JVD, regular rate, regular rhythm, S1 normal heart sound present and S2 normal heart sound present RATE: regular rate RHYTHM: regular rhythm HEART SOUNDS: S1 normal heart sound present and S2 normal heart sound present GI: COMMON NORMALS: Normal to inspection, nondistended, normoactive bowel sounds present, Soft to palpation, non-tender, No hepatosplenomegaly present, no masses and no bruits PALPATION: Yes Soft to palpation and Yes No hepatosplenomegaly present : COMMON NORMALS: Yes no CVA tenderness BLADDER/KIDNEY EXAM: Yes no CVA tenderness Back/Pelvis: COMMON NORMALS: no CVA tenderness Extremity: COMMON NORMALS: capillary refill normal, no clubbing, cyanosis or edema, no calf tenderness and no pedal edema Neuro: COMMON NORMALS: patient oriented x3, CN's II-XII intact bilaterally, moves all extremities and no focal motor deficits Psych: COMMON NORMALS: mental status grossly normal Data 08/20/23 05:21 08/20/23 05:21 Micro: Microbiology 08/20/23 05:21 Blood Culture - Preliminary Blood SPECIMEN COLLECTED 08/19/23 23:03 Blood Culture - Preliminary Blood SPECIMEN COLLECTED A&P Assessment and plan (1) Acute hyponatremia: (2) Acute dehydration: (3) Hematochezia: (4) Epigastric pain: (5) Exacerbation of Crohn's disease: (6) Hypokalemia: (7) Hypomagnesemia: (8) Sinus tachycardia: Plan Weakness: In setting of acute dehydration from poor oral intake in setting of exacerbation of Crohn's disease and abdominal pain. Acute hyponatremia: Secondary to decreased oral intake. Start on normal saline at 75 cc/h. Add salt tablet 1 g twice daily. Repeat sodium level in AM. Hypokalemia/hypomagnesemia: Repleted on admission. Monitor daily. Abdominal pain/nausea: Hemoglobin stable as compared to last discharge. Patient has an appointment with brownfield redevelopment site manager in [place]. ESR found to be normal, CRP mildly elevated at 21. Started on IV Solu-Medrol 40 mg every 8 hourly overnight. Wean to every 12 hourly for now. Continue with Protonix twice daily, Carafate ACHS. Add Maalox as needed. Switch to full liquid diet. Leukocytosis: Most likely in setting of steroids. Patient was on steroids till very recently earlier this week. No signs of infection for now. Anemia: Does have history of Crohn's disease. Hemoglobin though stable as compared to last discharge. Monitor daily for now. Attestations Medical Necessity Statement*: Requires further hospitalization for management of weakness in setting of hyponatremia from poor oral intake given abdominal pain from Crohn's disease Diagnoses Acute hyponatremia E87.1 Acute dehydration E86.0 Hematochezia K92.1 Epigastric pain R10.13 Exacerbation of Crohn's disease K50.90 Hypokalemia E87.6 Hypomagnesemia E83.42 Sinus tachycardia R00.0
[2023-08-20] MEDS: sodium chloride 0.9% 1,000 ML 75 ML IV (15:33)
[2023-08-20] MEDS: ondansetron 2 mg/ML SDV 2 mL 4 MG IVP (15:39)
[2023-08-20] MEDS: sodium chloride 1 gm Tablet PO (17:15)
[2023-08-21] VITALS (7 sets, daily range): BP systolic 116–133; BP diastolic 76–86; PULSE 79–94; RESP 16–18; TEMP 36.6–36.7; O2SAT 94–97
[2023-08-21 06:10] LABS: Basophils % 0.3 %; Hematocrit 28.6 % (36-47); Lymphocytes # 1.6 10^3/uL (0.8-4.8); Lymphocytes % 14.3 %; Mean Corpuscular HGB Conc 28.3 g/dL (30-55); Mean Corpuscular Hemoglobin 24.7 pg (27-33); Mean Corpuscular Volume 87.2 fl (85-98); Mean Platelet Volume 8.8 fL (7.4-10.4); Monocytes # 0.9 10^3/uL (0.2-0.9); Neutrophils # 8.52 10^3/uL (1.8-7.7); Neutrophils % 76.2 %; Nucleated Red Blood Cells % 0 %; Platelet Count 255 10^3/cmm (157-399); Red Blood Count 3.28 10^6/uL (3.85-5.65); Red Cell Distribution Width 21.4 % (12.1-15.1); White Blood Count 11.17 10^3/uL (3.29-11.43)
[2023-08-21] MEDS: sertraline 100 mg Tablet PO (06:17)
[2023-08-21 06:37] LABS: Alanine Aminotransferase 10 U/L (0-33); Albumin Level 1.5 g/dL (3.5-5.2); Alkaline Phosphatase 123 U/L (35-105); Anion Gap 12.3 (5-19); Aspartate Amino Transferase 11 U/L (0-32); Blood Urea Nitrogen 9 mg/dL (6-20); Calcium 6.9 mg/dL (8.5-10.5); Carbon Dioxide 24 mmol/L (22-29); Chloride 98 mmol/L (98-107); Globulin 3.4 g/dL (1.3-4.6); Glomerular Filtration Rate 96.4 mL/min (90-130); Glucose 112 mg/dL (65-115); Osmolality Calculated 269 mOsm/kg (285-295); Potassium 4.3 mmol/L (3.5-5.1); Sodium 130 mmol/L (136-145); Total Bilirubin 0.2 mg/dL (0.15-1.2); Total Protein 4.9 g/dL (6.6-8.7)
[2023-08-21] MEDS: HYDROmorphone 1 mg/mL INJ 1 mL 0.5 MG IVP (07:52)
[2023-08-21] MEDS: ferrous sulfate EC 325 mg Tablet PO (08:51)
[2023-08-21] MEDS: sodium chloride 1 gm Tablet PO (08:52)
[2023-08-21] MEDS: methylPREDNISolone sod succ 40 MG in water for injection-sterile 1 ML 12 MG IVP (08:52)
[2023-08-21] MEDS: sucralfate 1 gm/10 mL Oral Liq UDC PO (08:52)
[2023-08-21] MEDS: pantoprazole 40 mg SDV IVP (08:52)
--- NOTE | 2023-08-21 10:20 | PC.CHAP ---
Pastoral Care Encounter/Spiritual Assessment Type of Contact [] Declined district associate judge visit [] Patient/Family/Request visit [] Outpatient visit [] Follow-up visit [] Physician referral [] Code/Alert [x] Routine visit [] Staff referral [] Actively dying [] Patient sleeping [] Family support [] [] Out of room [] Palliative care [] [] Receiving care in room [] Pre-surgical visit [] Trauma [] Long length of stay [] ICU visit [] Other: Relational/Emotional Strength [] Patient feels connected with others/family/visitors/staff [] Distress [] Loneliness/isolation [] Abandonment Spirituality of Patient [] Person of Kelly [] Attends Christian of their Kelly [] Believes in Prayer [] Reads Bible or Spiritism materials [] There are Spiritual issues to be addressed [employer] Consultant Interventions [x] Prayer [] Active listening [] Non-anxious presence [] Spiritual/emotional support [] Crisis/trauma care [] Spiritual counseling [] Bereavement support [] Provided bereavement packet [] Provided Bible/devotional materials [] Provided toy/stuffed animal, coloring book to patient or family member [] Provided Communion [] Anointing/[place] [] Salvation [] Completed spiritual assessment [] Other: Impact on Illness or Injury [] Angry [] Fearful [] Anxious [] Often cries [] Exhaustion [] Unable to work [] Unable to attend gnosticist [] Unable to walk/stand [] Unable to read [] Unable to drive [] Unable to eat/drink [] Unable to sleep [] Unable to be with family [] Patient intubated [] Other: Summary Time spent with patient 10 min
--- NOTE | 2023-08-21 10:50 | P.DS_ITS ---
Discharge Providers Date of Admission: 08/20/23 11:10 Date of Discharge: August 21, 2023 Attending Provider at Admission: Yakov Doss MD Attending Provider at Discharge: Edi Hogan MD Primary Care Provider: Kendrick Nascimento MD Diagnoses at Discharge Discharge Diagnosis (1) Acute hyponatremia: Status: Acute (2) Acute dehydration: Status: Acute (3) Hematochezia: Status: Acute (4) Epigastric pain: Status: Acute (5) Exacerbation of Crohn's disease: Status: Acute (6) Hypokalemia: Status: Acute (7) Hypomagnesemia: Status: Acute (8) Sinus tachycardia: Status: Acute Reason for Visit Reason for Visit: blood work was bad doc sent her up Brief History: History as per HPI: Elizabeth Adames is a 32 year old female with a past medical history of Crohn's disease, chronic anemia, GERD, who presents [facility] due to fatigue, malaise, bloody diarrhea, decreased appetite.? Patient tells me that she has been diagnosed with Crohn's disease, she has an appointment with a GI doctor in [place] in October, she continues to have fatigue, malaise, poor appetite she is on steroids, prednisone 10 mg once daily, no fevers, no chills, reports persistent bloody diarrhea, she tells her that she came to the emergency room tonight as over the last few days, she has had lightheadedness, dizziness, and she worried that she has worsening of her anemia as the last time she was here she required a unit of blood, she does report a family history of ulcerative colitis on her father side, denies any trouble swallowing, denies any rectal fistulas Hospital Course Hospital Course Patient was admitted to the hospital further evaluation and management of weakness in setting of acute hyponatremia from poor oral intake and epigastric pain in setting of possibility of Crohn's disease. She has an appointment with color dipper at [place] in October. On admission ESR and CRP were f ound to be normal and mildly high respectively. Patient has recently finished taper of steroids earlier this week. Her symptoms are most likely in setting of gastritis from high steroid dose use. She was started on twice daily Protonix and Carafate along with systemic steroids at first. She was started on conservative treatment with liquid diet which was later advanced to mechanical soft. She tolerated the treatment well. For hyponatremia she was started on gentle IV hydration after which her sodium levels improved and are at 130 today. She has been discharged in medically stable condition on Protonix and Carafate along with Zofran as needed. She is advised to maintain oral hydration with at least 2 L of liquid daily. She is to take full liquid diet for next 4 to 5 days and then advance gradually to bland/brat diet if she is not able to maintain her oral hydration she is to drink at least half a bottle of Gatorade a day. Physical Exam Const: COMMON NORMALS: no acute distress and patient oriented x3 HENMT: COMMON NORMALS: normocephalic HEAD & SCALP: normocephalic Eye: COMMON NORMALS: Equal, round and reactive pupils present and EOMs intact bilaterally PUPIL: Yes Equal, round and reactive pupils present Neck/C-Spine: COMMON NORMALS: no JVD Lymph: LYMPHATIC: no lymphadenopathy noted Resp: COMMON NORMALS: normal respiratory effort, No retractions, No use of accessory muscles and clear to auscultation bilaterally AUSCULTATION: clear to auscultation bilaterally Cardio: COMMON NORMALS: no JVD, regular rate, regular rhythm, S1 normal heart sound present and S2 normal heart sound present RATE: regular rate RHYTHM: regular rhythm HEART SOUNDS: S1 normal heart sound present and S2 normal heart sound present GI: COMMON NORMALS: Normal to inspection, nondistended, normoactive bowel sounds present, Soft to palpation, non-tender, No hepatosplenomegaly present, no masses and no bruits PALPATION: Yes Soft to palpation and Yes No hepatosplenomegaly present : COMMON NORMALS: Yes no CVA tenderness BLADDER/KIDNEY EXAM: Yes no CVA tenderness Back/Pelvis: COMMON NORMALS: no CVA tenderness Extremity: COMMON NORMALS: capillary refill normal, no clubbing, cyanosis or edema, no calf tenderness and no pedal edema Neuro: COMMON NORMALS: patient oriented x3, CN's II-XII intact bilaterally, moves all extremities and no focal motor deficits Psych: COMMON NORMALS: mental status grossly normal Discharge Data Studies Completed and Pending Completed Studies During Hospitalization Category Date Time Status CT abdomen pelvis wo con [id number] Stat Cat Scan 08/19/23 18:36 Completed XR chest 1V portable [id number] Routine Exams 08/19/23 21:48 Completed Pending at discharge Category Date Time Status Blood Culture Stat Lab 08/19/23 23:03 Results Clostridium Diffi Toxin Reflex Routine Lab 08/19/23 21:41 Ordered Immunochemical Fecal OCB Routine Lab 08/19/23 21:41 Ordered Lactoferrin Routine Lab 08/19/23 21:41 Ordered OVA and Parasites, Conc and PE Routine Lab 08/19/23 21:41 Ordered Salmonella / Shigella / Campy Routine Lab 08/19/23 21:41 Ordered Radiology Impressions Abdomen/Pelvis CT 08/19/23 18:36 IMPRESSION: 1. Nonspecific enterocolitis, as described above. 2. Additional findings, as above. Chest X-Ray 08/19/23 21:48 IMPRESSION: No acute findings. Laboratory Results WBC 11.17 10^3/uL (3.29-11.43) 08/21/23 05:48 RBC 3.28 10^6/uL (3.85-5.65) L 08/21/23 05:48 Hgb 8.10 g/dL (11.27-16.99) L 08/21/23 05:48 Hct 28.6 % (36-47) L 08/21/23 05:48 MCV 87.2 fl (85-98) 08/21/23 05:48 MCH 24.7 pg (27-33) L 08/21/23 05:48 MCHC 28.3 g/dL (30-55) L 08/21/23 05:48 RDW 21.4 % (12.1-15.1) H 08/21/23 05:48 Plt Count 255 10^3/cmm (157-399) 08/21/23 05:48 MPV 8.8 fL (7.4-10.4) 08/21/23 05:48 Neut % (Auto) 76.2 % 08/21/23 05:48 Lymph % (Auto) 14.3 % 08/21/23 05:48 Ida % (Auto) 8.0 % 08/21/23 05:48 Eos % (Auto) 0.0 % 08/21/23 05:48 Baso % (Auto) 0.3 % 08/21/23 05:48 Neut # (Auto) 8.52 10^3/uL (1.8-7.7) H 08/21/23 05:48 Lymph # (Auto) 1.6 10^3/uL (0.8-4.8) 08/21/23 05:48 Ida # (Auto) 0.9 10^3/uL (0.2-0.9) 08/21/23 05:48 Eos # (Auto) 0.0 10^3/uL (0.0-0.8) 08/21/23 05:48 Baso # (Auto) 0.0 10^3/uL (0.0-0.1) 08/21/23 05:48 Nucleated RBC % (auto) 0 % 08/21/23 05:48 Nucleated RBCs # 0.0 /100WBC 08/21/23 05:48 ESR 2 mm/hr (0-15) 08/19/23 23:03 PT 16.20 SECONDS (12.1-14.9) H 08/19/23 23:03 INR 1.26 (0.8-1.2) H 08/19/23 23:03 Sodium 130 mmol/L (136-145) L 08/21/23 05:48 Potassium 4.3 mmol/L (3.5-5.1) 08/21/23 05:48 Chloride 98 mmol/L (98-107) 08/21/23 05:48 Carbon Dioxide 24 mmol/L (22-29) 08/21/23 05:48 Anion Gap 12.3 (5-19) 08/21/23 05:48 BUN 9 mg/dL (6-20) 08/21/23 05:48 Creatinine 0.7 mg/dL (0.5-0.9) 08/21/23 05:48 GFR Calculation 96.4 mL/min (90-130) 08/21/23 05:48 Glucose 112 mg/dL (65-115) 08/21/23 05:48 Calculated Osmolality 269 mOsm/kg (285-295) L 08/21/23 05:48 Lactic Acid 1.8 mmol/L (0.5-2.2) 08/19/23 18:18 Calcium 6.9 mg/dL (8.5-10.5) L 08/21/23 05:48 Phosphorus 3.8 mg/dL (2.5-4.5) 08/20/23 05:21 Magnesium 1.9 mg/dL (1.7-2.3) 08/20/23 05:21 Iron 12 ug/dL (37-145) L 08/19/23 23:03 TIBC 89 mcg/dl 08/19/23 23:03 % Saturation 13.4 % (20-50) L 08/19/23 23:03 Unsat Iron Binding 77 ug/dL (112-347) L 08/19/23 23:03 Ferritin 19 ng/mL (15-150) 08/19/23 23:03 Total Bilirubin 0.2 mg/dL (0.15-1.2) 08/21/23 05:48 AST 11 U/L (0-32) 08/21/23 05:48 ALT 10 U/L (0-33) 08/21/23 05:48 Alkaline Phosphatase 123 U/L (35-105) H 08/21/23 05:48 C-Reactive Protein 27.7 mg/L (0.0-4.9) H 08/19/23 23:03 Total Protein 4.9 g/dL (6.6-8.7) L 08/21/23 05:48 Albumin 1.5 g/dL (3.5-5.2) L 08/21/23 05:48 Globulin 3.4 g/dL (1.3-4.6) 08/21/23 05:48 Procalcitonin 0.17 ng/mL (0-0.5) 08/19/23 23:03 TSH 1.91 uIU/mL (0.27-4.20) 08/19/23 23:03 HCG, Qual Negative (Negative) 08/19/23 18:18 Urine Color Yellow (Yellow) 08/19/23 19:33 Urine Appearance Sl hazy (CLEAR) A 08/19/23 19:33 Urine pH 6.5 (5-7) 08/19/23 19:33 Ur Specific Perry 1.000 (1.005-1.030) L 08/19/23 19:33 Urine Protein Neg (Negative) 08/19/23 19:33 Urine Glucose (UA) Norm (Normal) 08/19/23 19:33 Urine Ketones Negative (Negative) 08/19/23 19:33 Urine Blood 2+ (Negative) H 08/19/23 19:33 Urine Nitrate Negative (Negative) 08/19/23 19:33 Urine Bilirubin Neg (Negative) 08/19/23 19:33 Urine Urobilinogen Norm mg/dL (Negative) 08/19/23 19:33 Ur Leukocyte Esterase Negative (Negative) 08/19/23 19:33 Urine RBC 0-4 /hpf (0-2) H 08/19/23 19:33 Urine WBC 0-4 /hpf (0-5) H 08/19/23 19:33 Ur Squamous Epith Cells 0-4 /hpf (0-5) H 08/19/23 19:33 Amorphous Sediment Not Reportable 08/19/23 19:33 Urine Bacteria Trace /hpf (NONE) 08/19/23 19:33 Ur Random Sodium < 10 mmol/L 08/20/23 13:45 Ur Random Potassium 40 mmol/L 08/20/23 13:45 Ur Random Chloride 38 mmol/L 08/20/23 13:45 Blood Type O Positive 08/19/23 18:18 Rho(D) Type Positive 08/19/23 18:18 Antibody Screen Negative 08/19/23 18:18 Vitals Last Vital Signs Temp 97.8 F 08/21/23 08:00 Pulse 84 08/21/23 08:00 Resp 16 08/21/23 08:00 BP 116/77 08/21/23 08:00 Pulse Ox 97 08/21/23 08:00 O2 Del Method Room Air 08/21/23 08:00 Discharge Plan Discharge Patient Disposition: Home Condition: Stable Prescriptions: New sodium chloride 1,000 mg Tablet,Soluble 1 g PO BID 14 Days Qty: 28 0RF Carafate 1 gram tablet 1 g PO BID 28 Days Qty: 56 0RF ondansetron HCl 4 mg tablet 4 mg PO Q8H PRN (Reason: nausea and vomiting) 4 Days Qty: 20 0RF Continued sertraline 100 mg tablet 100 mg PO QAM alprazolam 0.5 mg tablet 0.5 mg PO BID PRN (Reason: Anxiety) pantoprazole [Protonix] 40 mg tablet,delayed release (DR/EC) 40 mg PO BID 42 Days Qty: 84 1RF iron 159 mg (45 mg iron) tablet extended release 159 mg PO DAILY Qty: 30 0RF Discontinued prednisone 10 mg tablet See Taper PO DAILY Qty: 50 0RF Taper: predniSONE 60-10 80 mg Daily for 2 Days and 0 Hour 60 mg Daily for 2 Days and 0 Hour 40 mg Daily for 2 Days and 0 Hour 30 mg Daily for 2 Days and 0 Hour 20 mg Daily for 2 Days and 0 Hour 10 mg Daily for 2 Days and 0 Hour Discharge Orders: Discharge Order (Routine); Ordered 08/21/23 Ordered By: Edi Hogan Referrals: Kendrick Nascimento MD [Primary Care Provider] - 08/28/23 10:55 am Discharge Diet: Advance as tolerated and Full LIquid Discharge Activity: Resume usual activity and Increase activity as tolerated Patient Instructions: Sucralfate (By mouth), Sodium Chloride (By mouth), Crohn Disease (GEN), Opioid Safety Activity Restrictions/Additional Instructions: Continue with full liquid diet for now and advance gradually within next 1 week to mechanical soft diet. Take multiple small meals. Make sure you maintain your hydration at least for liquid diet. Make sure if you are not able to consume meals then you drink at least half a bottle of Gatorade a day. Discharge Attestations Time Spent in Discharge Care*: greater than 30 min Specific Discharge Activities: educating patient, discussing with pcp/other providers, discussing with outpatient case manager/social workers/dc planners, documenting/other paperwork and evaluating patient/reviewing data Status at Discharge: Cognitive status at discharge: cognitively intact , Behavioral status at discharge: cooperative , Functional status at discharge: independent ambulation , Overall status at discharge: patient is progressing back to baseline Quality Metrics Clinical Quality Measures [ No reported AMI, CVA or VTE this stay] Coding Level of Care Code 60723 Total time (in minutes) for Discharge: 45 Diagnoses Acute hyponatremia E87.1 Acute dehydration E86.0 Hematochezia K92.1 Epigastric pain R10.13 Exacerbation of Crohn's disease K50.90 Hypokalemia E87.6 Hypomagnesemia E83.42 Sinus tachycardia R00.0
--- NOTE | 2023-08-21 13:29 | PC.NURSE ---
Discharge instructions given to pt as well as order for outpatient stress test with instuctions provided to call centralized scheduling (extension provided) to schedule test. [place] delivered [place] [facility]. No questions or concerns voiced at this time. Patient escorted by staff to private vehicle via wheelchair with all belongings.
== END 2023-08-21 13:35 | disposition home or self-care (01) | DRG 386 ==
LOC: ER 20:41 → MEDSURG 21:03
PROVIDERS: Admitting Provider Family Medicine; Emergency Provider Emergency Medicine; PCP Family Medicine; Visit Provider Student in an Organized Health Care Education/Training Program
DX: K50.90 Crohn's disease, unspecified, without complications (principal); E87.1 Hypo-osmolality and hyponatremia; K29.70 Gastritis, unspecified, without bleeding; T38.0X5A Adverse effect of glucocorticoids and synthetic analogues, initial encounter; D64.9 Anemia, unspecified; K21.9 Gastro-esophageal reflux disease without esophagitis; Z87.891 Personal history of nicotine dependence; E86.0 Dehydration; E83.42 Hypomagnesemia; R00.0 Tachycardia, unspecified; E87.6 Hypokalemia; K76.0 Fatty (change of) liver, not elsewhere classified
CPT/HCPCS: 36415; 71045; 74176; 80048; 80053; 81001; 82436; 82728; 83540; 83550; 83605; 83735; 84100; 84133; 84145; 84300; 84443; 84703; 85025; 85610; 85651; 86140; 86850; 86900; 87040; 93005; 94664; 96372; 99285; C9113; G0378; J1170; J2270; J2405; J2550; J2920; J2930; J3475; J3480; J7030; Q9967

== ENCOUNTER 2023-09-03 13:52 | Inpatient (IN) | payer MEDICAID, SELFPAY ==
[2023-09-03] VITALS (63 sets, daily range): BP systolic 78–113; BP diastolic 47–67; PULSE 107–120; RESP 14–27; TEMP 36.6–36.8; O2SAT 84–100; BMI 29.0
--- NOTE | 2023-09-03 13:56 | ED_ITS ---
Documented by User: AISHWARYA Snider 09/04/23 14:06 HPI - Syncope General: Chief Complaint: Syncope Stated Complaint: Syncopal episode Time Seen by Provider: 09/03/23 13:55 Source: patient Mode of arrival: EMS Limitations: no limitations History of Present Illness: Patient is a 32-year-old female presents to ED today via EMS for evaluation of a syncopal episode. Patient states she was walking when she became lightheaded and dizzy and passed out. Patient states she has a history of Crohn's disease that was diagnosed a few months ago. She states she has been having issues since with rectal bleeding requiring transfusions and lightheadedness/dizziness/passing out episodes. She reportedly has an appointment in October with a GI specialist. Patient states she continues to have rectal bleeding and is not on any medications for her Crohn's at this time. She reports chronic diarrhea-10+ stools daily. She arrives to the ED pale, hypotensive, and tachycardic. complaint: loss of consciousness Onset (ago): hour(s) Prodromal symptoms: lightheaded Witnessed: Yes - by Bystander Injuries sustained associated with event: none Associated symptoms: Reports abdominal pain and lightheadedness; Deny chest pain, fever(s), headache(s) or nausea Treatments prior to arrival: none Review of Systems Const: Denies: fever(s), chills, body aches, fatigue or malaise Eyes: Denies: change in vision, blurry vision, photophobia, floaters or seeing flashes Card: Reports: lightheadedness and syncope; Denies: chest pain, palpitations, irregular heart rhythm, edema or swelling of feet/ankles Resp: Denies: dyspnea GI: Reports: abdominal pain, hematochezia and melena; Denies: nausea or vomiting : Denies: flank pain, difficulty voiding, dysuria, urinary frequency, urinary urgency or urinary hesitancy Musc: Denies: neck pain, back pain, extremity pain or joint pain Skin/Breast: Denies: rash Neuro: Denies: headache(s), numbness in extremities, weakness in extremities, sensory changes or dizziness PFS ED PFSH: Medical History Hematochezia Mild endometriosis (~04/24/23) Noted on the left round ligament at the time of laparoscopy for sterilization; incidental finding- Albino No pertinent past medical history neghx: htn,dm,thyroid,dvt/pe PCP: Dr. Nascimento Surgical History History of laparoscopy (~04/24/23) bilateral salpingectomy- performed by Dr. Franz at [facility]; mild endometriosis noted and treated. Family History Denies family history of Colon cancer Ovarian cancer Diabetes Heart disease Hypercholesteremia Breast cancer Hypertension Uterine cancer Thyroid disease Stroke Social History Smoking and tobacco/nicotine status: former use of tobacco/nicotine Alcohol intake: current Alcohol intake frequency: holidays/special occasions only Physical Exam Const: COMMON NORMALS: patient oriented x3, no limitations and alert GENERAL APPEARANCE: cooperative and other (pale/weak) ORIENTATION/CONSCIOUSNESS: Yes awake, Yes oriented to person, Yes oriented to place and Yes oriented to time HENMT: COMMON NORMALS: normocephalic and atraumatic HEAD & SCALP: normal to inspection, normocephalic and atraumatic Resp: COMMON NORMALS: normal respiratory effort and clear to auscultation bilaterally AUSCULTATION: clear to auscultation bilaterally Cardio: COMMON NORMALS: regular rhythm RATE: tachycardic RHYTHM: regular rhythm GI: COMMON NORMALS: Normal to inspection, nondistended, normoactive bowel sounds present, Soft to palpation, No hepatosplenomegaly present and no masses INSPECTION: Yes normal to inspection AUSCULTATION: Yes normoactive bowel sounds PALPATION: Yes Soft to palpation, Yes Tenderness to palpation present (GI) (diffusely) and Yes No hepatosplenomegaly present : COMMON NORMALS: Yes no CVA tenderness BLADDER/KIDNEY EXAM: Yes no CVA tenderness Back/Pelvis: COMMON NORMALS: no CVA tenderness, thoracic and lumbar spine normal to inspection and no thoracic nor lumbar tenderness Extremity: COMMON NORMALS: normal to inspection GENERAL: Yes normal exam except as noted Neuro: JOCELYN COMA SCALE: document GCS findings [place] coma scale eye opening: Spontaneous [place] coma scale verbal response: Orientated Jocelyn coma scale motor response: Obey commands [place] coma scale total score: 15 COMMON NORMALS: patient oriented x3, CN's II-XII intact bilaterally, moves all extremities, no focal motor deficits and no sensory deficits noted SENSORIUM/ORIENTATION: Yes alert, Yes oriented to person, Yes oriented to place and Yes oriented to time Skin: COMMON NORMALS: no rashes or lesions noted GENERAL SKIN EXAM: no rashes or lesions noted TRAUMA: no lacerations or abrasions Course ED course: Patient is a 32-year-old female here for complaints of a syncopal episode. She has abdominal pain and chronic bloody diarrhea secondary to diagnosed Crohn's Disease. She arrived to the ED tachycardic, pale, and hypotensive. IV was difficult to establish and we could only get a 22g. I spoke to Dr. Jain about placing a central line which she was agreeable to. Labs showing significant leukocytosis, stable hemoglobin compared to previous although his may be hemoconcentrated, multiple electrolyte derangements (hyponatremia at 120, hypocalcemia at 6.0), and acute kidney injury. She has responded well to IV fluids and pressures stable. Lactate came back at over 7. IV antibiotics will be initiated, CT scan ab/pelvis ordered and care will be transferred to Dr. Jain-PHIL Vital Signs: Vital signs: Vital Signs Temperature 97.8 F 09/04/23 13:45 Pulse Rate 109 H 09/04/23 13:45 Respiratory Rate 17 09/04/23 13:45 Blood Pressure 97/43 09/04/23 13:45 Pulse Oximetry 90 09/04/23 12:15 Oxygen Delivery Me thod Nasal Cannula 09/04/23 04:14 Oxygen Flow Rate 4 09/04/23 04:14 MDM - Syncope Lab Data 09/04/23 11:33 09/04/23 11:33 Radiology Impressions Abdomen/Pelvis CT 09/03/23 16:02 IMPRESSION: 1. Enterocolitis, likely infectious or inflammatory. 2. Hepatomegaly with diffuse steatosis. 3. Nonobstructive left nephrolithiasis. Chest X-Ray 09/04/23 04:18 IMPRESSION: 1. No acute cardiopulmonary finding. 2. Right IJ line again seen, tip overlies probable RV. Consider need for retraction about 7 cm. Laboratory Results WBC 23.40 10^3/uL (3.29-11.43) H 09/03/23 14:52 RBC 3.22 10^6/uL (3.85-5.65) L 09/03/23 14:52 Hgb 8.50 g/dL (11.27-16.99) L 09/03/23 14:52 Hct 29.0 % (36-47) L 09/03/23 14:52 MCV 90.1 fl (85-98) 09/03/23 14:52 MCH 26.4 pg (27-33) L 09/03/23 14:52 MCHC 29.3 g/dL (30-55) L 09/03/23 14:52 RDW 21.1 % (12.1-15.1) H 09/03/23 14:52 Plt Count 336 10^3/cmm (157-399) 09/03/23 14:52 MPV 9.4 fL (7.4-10.4) 09/03/23 14:52 Lymph % (Auto) Not Reportable 09/03/23 14:52 [place] % (Auto) Not Reportable 09/03/23 14:52 Lymph # (Auto) Not Reportable 09/03/23 14:52 [place] # (Auto) Not Reportable 09/03/23 14:52 Total Counted 100 (0-100) 09/03/23 14:52 Atypical Lymphs % 2.0 % (0-5) 09/03/23 14:52 Absolute Neutrophils 18.0 10^3/cmm (1.4-6.5) H 09/03/23 14:52 Segmented Neutrophils 72 % 09/03/23 14:52 Abs Segm Neuts (Man) 16.8 10/cmm (1.6-7.1) H 09/03/23 14:52 Band Neutrophils 5.0 % 09/03/23 14:52 Abs Band Neuts (Man) 1.2 10^3/cmm (0.0-1.2) 09/03/23 14:52 Absolute Lymphocytes 4.2 10^3/cmm (1.2-3.4) H 09/03/23 14:52 Lymphocytes (Manual) 16 % 09/03/23 14:52 Monocytes (Manual) 1.0 % 09/03/23 14:52 Absolute Monocytes 0.2 10^3/cmm (0.1-0.6) 09/03/23 14:52 Eosinophils (Manual) 0 % 09/03/23 14:52 Absolute Eosinophils 0.0 10^3/cmm (0.0-0.7) 09/03/23 14:52 Basophils (Manual) 0.0 % 09/03/23 14:52 Absolute Basophils 0.0 10^3/cmm (0.0-0.2) 09/03/23 14:52 Metamyelocytes 2.0 % 09/03/23 14:52 Myelocytes 2.0 % 09/03/23 14:52 Platelet Estimate Normal (Normal) 09/03/23 14:52 Polychromasia 1+ H 09/03/23 14:52 Poikilocytosis 1+ H 09/03/23 14:52 Anisocytosis 1+ H 09/03/23 14:52 Macrocytosis 1+ H 09/03/23 14:52 Sodium 120 mmol/L (136-145) L 09/03/23 14:52 Potassium 4.1 mmol/L (3.5-5.1) 09/03/23 14:52 Chloride 84 mmol/L (98-107) L 09/03/23 14:52 Carbon Dioxide 19 mmol/L (22-29) L 09/03/23 14:52 Anion Gap 21.1 (5-19) H 09/03/23 14:52 BUN 18 mg/dL (6-20) 09/03/23 14:52 Creatinine 2.9 mg/dL (0.5-0.9) H 09/03/23 14:52 GFR Calculation 18.7 mL/min (90-130) L 09/03/23 14:52 Glucose 59 mg/dL (65-115) L 09/03/23 14:52 POC Glucose 182 mg/dL (70-110) H 09/03/23 17:40 Calculated Osmolality 250 mOsm/kg (285-295) L 09/03/23 14:52 Lactic Acid 7.1 mmol/L (0.5-2.2) H* 09/03/23 14:52 Lactic Acid (Sepsis) 4.0 mmol/L (0.5-2.2) H 09/03/23 18:41 Calcium 6.0 mg/dL (8.5-10.5) L 09/03/23 14:52 Magnesium 1.6 mg/dL (1.7-2.3) L 09/03/23 14:52 Total Bilirubin 0.7 mg/dL (0.15-1.2) 09/03/23 14:52 AST 31 U/L (0-32) 09/03/23 14:52 ALT 50 U/L (0-33) H 09/03/23 14:52 Alkaline Phosphatase 169 U/L (35-105) H 09/03/23 14:52 Creatine Kinase 66 U/L (26-192) 09/03/23 16:40 Troponin T Baseline 24 ng/L (0-10) H 09/03/23 14:52 Troponin T 120 Minute 19.93 ng/L (0-10) H 09/03/23 16:40 Delta Troponin T -4.07 ABS# (0-10) L 09/03/23 16:40 C-Reactive Protein 82.8 mg/L (0.0-4.9) H 09/03/23 14:52 Total Protein 4.1 g/dL (6.6-8.7) L 09/03/23 14:52 Albumin 1.1 g/dL (3.5-5.2) L 09/03/23 14:52 Globulin 3.0 g/dL (1.3-4.6) 09/03/23 14:52 Procalcitonin 2.39 ng/mL (0-0.5) H 09/03/23 14:52 HCG, Qual Negative (Negative) 09/03/23 14:52 Urine Color Tara (Yellow) 09/03/23 17:00 Urine Appearance Cloudy (CLEAR) A 09/03/23 17:00 Urine pH 5 (5-7) 09/03/23 17:00 Ur Specific [place] 1.030 (1.005-1.030) 09/03/23 17:00 Urine Protein 1+ (Negative) H 09/03/23 17:00 Urine Glucose (UA) Norm (Normal) 09/03/23 17:00 Urine Ketones 1+ (Negative) H 09/03/23 17:00 Urine Blood Neg (Negative) 09/03/23 17:00 Urine Nitrate Negative (Negative) 09/03/23 17:00 Urine Bilirubin 2+ (Negative) H 09/03/23 17:00 Urine Urobilinogen 1 mg/dL (Negative) H 09/03/23 17:00 Ur Leukocyte Esterase Negative (Negative) 09/03/23 17:00 Urine RBC Rare /hpf (0-2) 09/03/23 17:00 Urine WBC 0-4 /hpf (0-5) H 09/03/23 17:00 Ur Squamous Epith Cells 0-4 /hpf (0-5) H 09/03/23 17:00 Amorphous Sediment 1+ /hpf 09/03/23 17:00 Urine Bacteria 1+ /hpf (NONE) H 09/03/23 17:00 Urine Mucus 1+ /hpf 09/03/23 17:00 Blood Type O Positive 09/03/23 14:52 Rho(D) Type Positive 09/03/23 14:52 Antibody Screen Negative 09/03/23 14:52 Crossmatch See Detail 09/03/23 14:52 Discharge Plan Discharge Patient Disposition: Admitted As Inpatient Admit Provider: Gisela Kelly Clinical Impression: Acute hyponatremia, Acute dehydration, Syncope, Sepsis, Acute kidney injury Condition: Stable Sign Out Sign Out Data: Patient Sign Out occurred on 09/03/23 at 17:14. Patient's care was discussed, and care was transferred from to Angelito Jain DO. Coding Level of Care Code ED Windshield Technician for Chg Fwd Documented by User: Angelito Jain DO 09/04/23 06:21 HPI - Syncope General: Chief Complaint: Syncope Stated Complaint: Syncopal episode Time Seen by Provider: 09/03/23 13:55 PFSH ED PFSH: Medical History Hematochezia Mild endometriosis (~04/24/23) Noted on the left round ligament at the time of laparoscopy for sterilization; incidental finding- Albino No pertinent past medical history neghx: htn,dm,thyroid,dvt/pe PCP: Dr. Nascimento Surgical History History of laparoscopy (~04/24/23) bilateral salpingectomy- performed by Dr. Franz at [facility]; mild endometriosis noted and treated. Family History Denies family history of Colon cancer Ovarian cancer Diabetes Heart disease Hypercholesteremia Breast cancer Hypertension Uterine cancer Thyroid disease Stroke Social History Smoking and tobacco/nicotine status: former use of tobacco/nicotine Alcohol intake: current Alcohol intake frequency: holidays/special occasions only Physical Exam Neuro: JOCELYN COMA SCALE: document GCS findings [place] coma scale total score: 15 Procedures Central Line Placement Right IJ: Time Out Performed: Yes Patient Placed on Monitor/Pulse Ox: Yes MD Prep: mask and gown Central Line Prep: Chlorhexidine scrub Local Anesthetic: lidocaine 1% Amount of anesthesia used (mL): 4 Ultrasound Used for Placement: Yes Central Line Lumen Inserted: triple Post Procedure: sutured in place, good blood return, all ports aspirated, flushed, capped and sterile dressing applied Post Procedure X-Ray: tip of catheter in good position Patient Tolerated Procedure: well Complications: none Course Vital Signs: Vital signs: Vital Signs Temperature 97.8 F 09/04/23 13:45 Pulse Rate 109 H 09/04/23 13:45 Respiratory Rate 17 09/04/23 13:45 Blood Pressure 97/43 09/04/23 13:45 Pulse Oximetry 90 09/04/23 12:15 Oxygen Delivery Me thod Nasal Cannula 09/04/23 04:14 Oxygen Flow Rate 4 09/04/23 04:14 MDM - Syncope Medical Decision Making Assumed care from AISHWARYA Snider. I had put in a central line previously. Patient is in septic shock her blood pressures improved at this point with the initial small fluid bolus. The full septic shock fluid bolus not given because of the patient's severe hyponatremia. Giving a full dose of would be dangerous given her current sodium level. She has responded initially to the 1 L fluid bolus and her blood pressures improved to 103/67. If pressure decreases will transfuse blood rather than giving more fluids. Maintenance IV of D5 normal saline initiated for now until the remainder of the labs and imaging are resulted. Hypoglycemia has been corrected but her blood sugars still low the D5 should improve this. Blood pressure stable at this time. Care turned over to Dr. Fan at change of shift. Anticipate admission to the ICU. Took patient over from Dr. Gonzalez pending CT abdomen did show colitis patient's had IV antibiotics her blood pressure has been stable I spoke to the hospitalist will admit to the ICU at this time Medical Records I reviewed the patient's medical records. Lab Data I reviewed the patient's lab results. 09/04/23 11:33 09/04/23 11:33 Radiology Impressions Abdomen/Pelvis CT 09/03/23 16:02 IMPRESSION: 1. Enterocolitis, likely infectious or inflammatory. 2. Hepatomegaly with diffuse steatosis. 3. Nonobstructive left nephrolithiasis. Chest X-Ray 09/04/23 04:18 IMPRESSION: 1. No acute cardiopulmonary finding. 2. Right IJ line again seen, tip overlies probable RV. Consider need for retraction about 7 cm. Laboratory Results WBC 23.40 10^3/uL (3.29-11.43) H 09/03/23 14:52 RBC 3.22 10^6/uL (3.85-5.65) L 09/03/23 14:52 Hgb 8.50 g/dL (11.27-16.99) L 09/03/23 14:52 Hct 29.0 % (36-47) L 09/03/23 14:52 MCV 90.1 fl (85-98) 09/03/23 14:52 MCH 26.4 pg (27-33) L 09/03/23 14:52 MCHC 29.3 g/dL (30-55) L 09/03/23 14:52 RDW 21.1 % (12.1-15.1) H 09/03/23 14:52 Plt Count 336 10^3/cmm (157-399) 09/03/23 14:52 MPV 9.4 fL (7.4-10.4) 09/03/23 14:52 Lymph % (Auto) Not Reportable 09/03/23 14:52 [place] % (Auto) Not Reportable 09/03/23 14:52 Lymph # (Auto) Not Reportable 09/03/23 14:52 [place] # (Auto) Not Reportable 09/03/23 14:52 Total Counted 100 (0-100) 09/03/23 14:52 Atypical Lymphs % 2.0 % (0-5) 09/03/23 14:52 Absolute Neutrophils 18.0 10^3/cmm (1.4-6.5) H 09/03/23 14:52 Segmented Neutrophils 72 % 09/03/23 14:52 Abs Segm Neuts (Man) 16.8 10/cmm (1.6-7.1) H 09/03/23 14:52 Band Neutrophils 5.0 % 09/03/23 14:52 Abs Band Neuts (Man) 1.2 10^3/cmm (0.0-1.2) 09/03/23 14:52 Absolute Lymphocytes 4.2 10^3/cmm (1.2-3.4) H 09/03/23 14:52 Lymphocytes (Manual) 16 % 09/03/23 14:52 Monocytes (Manual) 1.0 % 09/03/23 14:52 Absolute Monocytes 0.2 10^3/cmm (0.1-0.6) 09/03/23 14:52 Eosinophils (Manual) 0 % 09/03/23 14:52 Absolute Eosinophils 0.0 10^3/cmm (0.0-0.7) 09/03/23 14:52 Basophils (Manual) 0.0 % 09/03/23 14:52 Absolute Basophils 0.0 10^3/cmm (0.0-0.2) 09/03/23 14:52 Metamyelocytes 2.0 % 09/03/23 14:52 Myelocytes 2.0 % 09/03/23 14:52 Platelet Estimate Normal (Normal) 09/03/23 14:52 Polychromasia 1+ H 09/03/23 14:52 Poikilocytosis 1+ H 09/03/23 14:52 Anisocytosis 1+ H 09/03/23 14:52 Macrocytosis 1+ H 09/03/23 14:52 Sodium 120 mmol/L (136-145) L 09/03/23 14:52 Potassium 4.1 mmol/L (3.5-5.1) 09/03/23 14:52 Chloride 84 mmol/L (98-107) L 09/03/23 14:52 Carbon Dioxide 19 mmol/L (22-29) L 09/03/23 14:52 Anion Gap 21.1 (5-19) H 09/03/23 14:52 BUN 18 mg/dL (6-20) 09/03/23 14:52 Creatinine 2.9 mg/dL (0.5-0.9) H 09/03/23 14:52 GFR Calculation 18.7 mL/min (90-130) L 09/03/23 14:52 Glucose 59 mg/dL (65-115) L 09/03/23 14:52 POC Glucose 182 mg/dL (70-110) H 09/03/23 17:40 Calculated Osmolality 250 mOsm/kg (285-295) L 09/03/23 14:52 Lactic Acid 7.1 mmol/L (0.5-2.2) H* 09/03/23 14:52 Lactic Acid (Sepsis) 4.0 mmol/L (0.5-2.2) H 09/03/23 18:41 Calcium 6.0 mg/dL (8.5-10.5) L 09/03/23 14:52 Magnesium 1.6 mg/dL (1.7-2.3) L 09/03/23 14:52 Total Bilirubin 0.7 mg/dL (0.15-1.2) 09/03/23 14:52 AST 31 U/L (0-32) 09/03/23 14:52 ALT 50 U/L (0-33) H 09/03/23 14:52 Alkaline Phosphatase 169 U/L (35-105) H 09/03/23 14:52 Creatine Kinase 66 U/L (26-192) 09/03/23 16:40 Troponin T Baseline 24 ng/L (0-10) H 09/03/23 14:52 Troponin T 120 Minute 19.93 ng/L (0-10) H 09/03/23 16:40 Delta Troponin T -4.07 ABS# (0-10) L 09/03/23 16:40 C-Reactive Protein 82.8 mg/L (0.0-4.9) H 09/03/23 14:52 Total Protein 4.1 g/dL (6.6-8.7) L 09/03/23 14:52 Albumin 1.1 g/dL (3.5-5.2) L 09/03/23 14:52 Globulin 3.0 g/dL (1.3-4.6) 09/03/23 14:52 Procalcitonin 2.39 ng/mL (0-0.5) H 09/03/23 14:52 HCG, Qual Negative (Negative) 09/03/23 14:52 Urine Color Tara (Yellow) 09/03/23 17:00 Urine Appearance Cloudy (CLEAR) A 09/03/23 17:00 Urine pH 5 (5-7) 09/03/23 17:00 Ur Specific [place] 1.030 (1.005-1.030) 09/03/23 17:00 Urine Protein 1+ (Negative) H 09/03/23 17:00 Urine Glucose (UA) Norm (Normal) 09/03/23 17:00 Urine Ketones 1+ (Negative) H 09/03/23 17:00 Urine Blood Neg (Negative) 09/03/23 17:00 Urine Nitrate Negative (Negative) 09/03/23 17:00 Urine Bilirubin 2+ (Negative) H 09/03/23 17:00 Urine Urobilinogen 1 mg/dL (Negative) H 09/03/23 17:00 Ur Leukocyte Esterase Negative (Negative) 09/03/23 17:00 Urine RBC Rare /hpf (0-2) 09/03/23 17:00 Urine WBC 0-4 /hpf (0-5) H 09/03/23 17:00 Ur Squamous Epith Cells 0-4 /hpf (0-5) H 09/03/23 17:00 Amorphous Sediment 1+ /hpf 09/03/23 17:00 Urine Bacteria 1+ /hpf (NONE) H 09/03/23 17:00 Urine Mucus 1+ /hpf 09/03/23 17:00 Blood Type O Positive 09/03/23 14:52 Rho(D) Type Positive 09/03/23 14:52 Antibody Screen Negative 09/03/23 14:52 Crossmatch See Detail 09/03/23 14:52 Discharge Plan Discharge Patient Disposition: Admitted As Inpatient Admit Provider: Gisela Kelly Clinical Impression: Acute hyponatremia, Acute dehydration, Syncope, Sepsis, Acute kidney injury Condition: Stable Sign Out Sign Out Data: Patient Sign Out occurred on 09/03/23 at 17:14. Patient's care was discussed, and care was transferred from to Angelito Jain DO. Coding Level of Care Code ED Windshield Technician for Chg Fwd Documented by User: Victoriano Fan MD 09/03/23 19:39 HPI - Syncope General: Chief Complaint: Syncope Stated Complaint: Syncopal episode Time Seen by Provider: 09/03/23 13:55 PFSH ED PFSH: Medical History Hematochezia Mild endometriosis (~04/24/23) Noted on the left round ligament at the time of laparoscopy for sterilization; incidental finding- Albino No pertinent past medical history neghx: htn,dm,thyroid,dvt/pe PCP: Dr. Nascimento Surgical History History of laparoscopy (~04/24/23) bilateral salpingectomy- performed by Dr. Franz at [facility]; mild endometriosis noted and treated. Family History Denies family history of Colon cancer Ovarian cancer Diabetes Heart disease Hypercholesteremia Breast cancer Hypertension Uterine cancer Thyroid disease Stroke Social History Smoking and tobacco/nicotine status: former use of tobacco/nicotine Alcohol intake: current Alcohol intake frequency: holidays/special occasions only Physical Exam Neuro: JOCELYN COMA SCALE: document GCS findings [place] coma scale total sco re: 15 Course Vital Signs: Vital signs: Vital Signs Temperature 97.8 F 09/04/23 13:45 Pulse Rate 109 H 09/04/23 13:45 Respiratory Rate 17 09/04/23 13:45 Blood Pressure 97/43 09/04/23 13:45 Pulse Oximetry 90 09/04/23 12:15 Oxygen Delivery Me thod Nasal Cannula 09/04/23 04:14 Oxygen Flow Rate 4 09/04/23 04:14 MDM - Syncope Medical Decision Making Assumed care from AISHWARYA Snider. I had put in a central line previously. Patient is in septic shock her blood pressures improved at this point with the initial small fluid bolus. The full septic shock fluid bolus not given because of the patient's severe hyponatremia. Giving a full dose of would be dangerous given her current sodium level. She has responded initially to the 1 L fluid bolus and her blood pressures improved to 103/67. If pressure decreases will transfuse blood rather than giving more fluids. Took patient over from Dr. Gonzalez pending CT abdomen did show colitis patient's had IV antibiotics her blood pressure has been stable I spoke to the hospitalist will admit to the ICU at this time Lab Data 09/04/23 11:33 09/04/23 11:33 Radiology Impressions Abdomen/Pelvis CT 09/03/23 16:02 IMPRESSION: 1. Enterocolitis, likely infectious or inflammatory. 2. Hepatomegaly with diffuse steatosis. 3. Nonobstructive left nephrolithiasis. Chest X-Ray 09/04/23 04:18 IMPRESSION: 1. No acute cardiopulmonary finding. 2. Right IJ line again seen, tip overlies probable RV. Consider need for retraction about 7 cm. Laboratory Results WBC 23.40 10^3/uL (3.29-11.43) H 09/03/23 14:52 RBC 3.22 10^6/uL (3.85-5.65) L 09/03/23 14:52 Hgb 8.50 g/dL (11.27-16.99) L 09/03/23 14:52 Hct 29.0 % (36-47) L 09/03/23 14:52 MCV 90.1 fl (85-98) 09/03/23 14:52 MCH 26.4 pg (27-33) L 09/03/23 14:52 MCHC 29.3 g/dL (30-55) L 09/03/23 14:52 RDW 21.1 % (12.1-15.1) H 09/03/23 14:52 Plt Count 336 10^3/cmm (157-399) 09/03/23 14:52 MPV 9.4 fL (7.4-10.4) 09/03/23 14:52 Lymph % (Auto) Not Reportable 09/03/23 14:52 [place] % (Auto) Not Reportable 09/03/23 14:52 Lymph # (Auto) Not Reportable 09/03/23 14:52 [place] # (Auto) Not Reportable 09/03/23 14:52 Total Counted 100 (0-100) 09/03/23 14:52 Atypical Lymphs % 2.0 % (0-5) 09/03/23 14:52 Absolute Neutrophils 18.0 10^3/cmm (1.4-6.5) H 09/03/23 14:52 Segmented Neutrophils 72 % 09/03/23 14:52 Abs Segm Neuts (Man) 16.8 10/cmm (1.6-7.1) H 09/03/23 14:52 Band Neutrophils 5.0 % 09/03/23 14:52 Abs Band Neuts (Man) 1.2 10^3/cmm (0.0-1.2) 09/03/23 14:52 Absolute Lymphocytes 4.2 10^3/cmm (1.2-3.4) H 09/03/23 14:52 Lymphocytes (Manual) 16 % 09/03/23 14:52 Monocytes (Manual) 1.0 % 09/03/23 14:52 Absolute Monocytes 0.2 10^3/cmm (0.1-0.6) 09/03/23 14:52 Eosinophils (Manual) 0 % 09/03/23 14:52 Absolute Eosinophils 0.0 10^3/cmm (0.0-0.7) 09/03/23 14:52 Basophils (Manual) 0.0 % 09/03/23 14:52 Absolute Basophils 0.0 10^3/cmm (0.0-0.2) 09/03/23 14:52 Metamyelocytes 2.0 % 09/03/23 14:52 Myelocytes 2.0 % 09/03/23 14:52 Platelet Estimate Normal (Normal) 09/03/23 14:52 Polychromasia 1+ H 09/03/23 14:52 Poikilocytosis 1+ H 09/03/23 14:52 Anisocytosis 1+ H 09/03/23 14:52 Macrocytosis 1+ H 09/03/23 14:52 Sodium 120 mmol/L (136-145) L 09/03/23 14:52 Potassium 4.1 mmol/L (3.5-5.1) 09/03/23 14:52 Chloride 84 mmol/L (98-107) L 09/03/23 14:52 Carbon Dioxide 19 mmol/L (22-29) L 09/03/23 14:52 Anion Gap 21.1 (5-19) H 09/03/23 14:52 BUN 18 mg/dL (6-20) 09/03/23 14:52 Creatinine 2.9 mg/dL (0.5-0.9) H 09/03/23 14:52 GFR Calculation 18.7 mL/min (90-130) L 09/03/23 14:52 Glucose 59 mg/dL (65-115) L 09/03/23 14:52 POC Glucose 182 mg/dL (70-110) H 09/03/23 17:40 Calculated Osmolality 250 mOsm/kg (285-295) L 09/03/23 14:52 Lactic Acid 7.1 mmol/L (0.5-2.2) H* 09/03/23 14:52 Lactic Acid (Sepsis) 4.0 mmol/L (0.5-2.2) H 09/03/23 18:41 Calcium 6.0 mg/dL (8.5-10.5) L 09/03/23 14:52 Magnesium 1.6 mg/dL (1.7-2.3) L 09/03/23 14:52 Total Bilirubin 0.7 mg/dL (0.15-1.2) 09/03/23 14:52 AST 31 U/L (0-32) 09/03/23 14:52 ALT 50 U/L (0-33) H 09/03/23 14:52 Alkaline Phosphatase 169 U/L (35-105) H 09/03/23 14:52 Creatine Kinase 66 U/L (26-192) 09/03/23 16:40 Troponin T Baseline 24 ng/L (0-10) H 09/03/23 14:52 Troponin T 120 Minute 19.93 ng/L (0-10) H 09/03/23 16:40 Delta Troponin T -4.07 ABS# (0-10) L 09/03/23 16:40 C-Reactive Protein 82.8 mg/L (0.0-4.9) H 09/03/23 14:52 Total Protein 4.1 g/dL (6.6-8.7) L 09/03/23 14:52 Albumin 1.1 g/dL (3.5-5.2) L 09/03/23 14:52 Globulin 3.0 g/dL (1.3-4.6) 09/03/23 14:52 Procalcitonin 2.39 ng/mL (0-0.5) H 09/03/23 14:52 HCG, Qual Negative (Negative) 09/03/23 14:52 Urine Color Tara (Yellow) 09/03/23 17:00 Urine Appearance Cloudy (CLEAR) A 09/03/23 17:00 Urine pH 5 (5-7) 09/03/23 17:00 Ur Specific Blossom 1.030 (1.005-1.030) 09/03/23 17:00 Urine Protein 1+ (Negative) H 09/03/23 17:00 Urine Glucose (UA) Norm (Normal) 09/03/23 17:00 Urine Ketones 1+ (Negative) H 09/03/23 17:00 Urine Blood Neg (Negative) 09/03/23 17:00 Urine Nitrate Negative (Negative) 09/03/23 17:00 Urine Bilirubin 2+ (Negative) H 09/03/23 17:00 Urine Urobilinogen 1 mg/dL (Negative) H 09/03/23 17:00 Ur Leukocyte Esterase Negative (Negative) 09/03/23 17:00 Urine RBC Rare /hpf (0-2) 09/03/23 17:00 Urine WBC 0-4 /hpf (0-5) H 09/03/23 17:00 Ur Squamous Epith Cells 0-4 /hpf (0-5) H 09/03/23 17:00 Amorphous Sediment 1+ /hpf 09/03/23 17:00 Urine Bacteria 1+ /hpf (NONE) H 09/03/23 17:00 Urine Mucus 1+ /hpf 09/03/23 17:00 Blood Type O Positive 09/03/23 14:52 Rho(D) Type Positive 09/03/23 14:52 Antibody Screen Negative 09/03/23 14:52 Crossmatch See Detail 09/03/23 14:52 All radiology interpretation(s) finalized by discharge Critical Care Time Critical Care Time: Critical Care Time: Yes Total Critical Care Time: 40 Attestation: The high probability of a clinically significant, sudden or life threatening deterioration of the patient's gi/electrolytes system(s) required my full and direct attention, intervention and personal management. The critical care time is as shown. This time is in addition to time spent performing any reported procedures but includes the following: [x] Data and vital sign review and interpretation [x] Patient assessment, examination and intervention [x] Documentation [x] Medication orders and management Discharge Plan Discharge Patient Disposition: Admitted As Inpatient Admit Provider: Gisela Kelly Clinical Impression: Acute hyponatremia, Acute dehydration, Syncope, Sepsis, Acute kidney injury Condition: Stable Sign Out Sign Out Data: Patient Sign Out occurred on 09/03/23 at 17:14. Patient's care was discussed, and care was transferred from to Angelito Jain DO. Coding Level of Care Code ED Windshield Technician for Syd Ramirez
--- NOTE | 2023-09-03 14:14 | XRR_ITS ---
PROCEDURE INFORMATION: Exam: XR Chest Exam date and time: 09/03/2023 2:36 PM Age: 32 years old Clinical indication: Other: Syncope; Prior surgery; Surgery date: 6+ months; Surgery type: Tubal TECHNIQUE: Imaging protocol: Radiologic exam of the chest. Views: 1 view. COMPARISON: CR (CHEST, ) 08/19/2023 10:06 PM FINDINGS: Lungs: Unremarkable. No consolidation. Pleural spaces: Unremarkable. No pleural effusion. No pneumothorax. Heart/Mediastinum: Unremarkable. No cardiomegaly. Bones/joints: Unremarkable. XR/XR chest 1V portable [id number] IMPRESSION: No acute findings.
--- NOTE | 2023-09-03 14:15 | ECG_ITS ---
[facility] Test Date: 2023-09-03 Pat Name: Elizabeth Adames Department: Room: Gender: Female Actuarial Internship: : 1990 Requested By: Noa Little Order Number: [id number] Bernice MD: Mally Pierce M.D. Measurements Intervals [place] Rate: 113 P: 58 PA: 100 QRS: 4 QRSD: 96 T: 19 QT: 343 QTc: 472 Interpretive Statements SINUS TACHYCARDIA WITH SHORT PA INTERVAL ABNORMAL RHYTHM ECG Compared to ECG 08/19/2023 17:51:26 No significant changes Electronically Signed On 09-03-2023 17:43:01 CDT by Mally Pierce M.D. [id number]
[2023-09-03 15:04] LABS: Mean Corpuscular HGB Conc 29.3 g/dL (30-55); Mean Corpuscular Hemoglobin 26.4 pg (27-33); Mean Corpuscular Volume 90.1 fl (85-98); Mean Platelet Volume 9.4 fL (7.4-10.4); Platelet Count 336 10^3/cmm (157-399); Red Blood Count 3.22 10^6/uL (3.85-5.65); Red Cell Distribution Width 21.1 % (12.1-15.1)
[2023-09-03 15:20] LABS: HCG, Serum Qual Negative (Negative)
[2023-09-03 15:25] LABS: Troponin(5th) Baseline 24 ng/L (0-10)
[2023-09-03 15:26] LABS: Alanine Aminotransferase 50 U/L (0-33); Albumin Level 1.1 g/dL (3.5-5.2); Alkaline Phosphatase 169 U/L (35-105); Aspartate Amino Transferase 31 U/L (0-32); Blood Urea Nitrogen 18 mg/dL (6-20); Carbon Dioxide 19 mmol/L (22-29); Chloride 84 mmol/L (98-107); Glomerular Filtration Rate 18.7 mL/min (90-130); Glucose 59 mg/dL (65-115); Osmolality Calculated 250 mOsm/kg (285-295); Sodium 120 mmol/L (136-145); Total Bilirubin 0.7 mg/dL (0.15-1.2); Total Protein 4.1 g/dL (6.6-8.7)
[2023-09-03 15:35] LABS: Anion Gap 21.1 (5-19); Potassium 4.1 mmol/L (3.5-5.1)
[2023-09-03 15:59] LABS: Magnesium 1.6 mg/dL (1.7-2.3)
[2023-09-03 16:00] LABS: Slide Review Slide Review Perform
[2023-09-03 16:01] LABS: Absolute Segmented Neutrophil 16.8 10/cmm (1.6-7.1); Anisocytosis 1+; Band Neutrophils Absolute 1.2 10^3/cmm (0.0-1.2); Eosinophils 0 %; Lymphocytes 16 %; Lymphocytes Absolute 4.2 10^3/cmm (1.2-3.4); Monocytes Absolute 0.2 10^3/cmm (0.1-0.6); Platelet Estimate Normal (Normal); Poikilocytosis 1+; Polychromasia 1+; Segmented Neutrophils 72 %; Total Cells Counted 100 (0-100)
--- NOTE | 2023-09-03 16:01 | XRR_ITS ---
PROCEDURE INFORMATION: Exam: XR Chest Exam date and time: 09/03/2023 4:16 PM Age: 32 years old Clinical indication: Device placement; Other: Central line placement; Additional info: Central line post XR TECHNIQUE: Imaging protocol: Radiologic exam of the chest. Views: 1 view. COMPARISON: CR XR chest 1V portable [id number] 09/03/2023 2:36 PM FINDINGS: Tubes, catheters and devices: Central line in place with its tip in the inferior portion of the right atrium. Lungs: No active cardiopulmonary disease. Pleural spaces: Unremarkable. No pleural effusion. No pneumothorax. Heart/Mediastinum: Unremarkable. No cardiomegaly. Bones/joints: Unremarkable. XR/XR chest 1V portable [id number] IMPRESSION: 1. Central line in place with its tip in the inferior portion of the right atrium. 2. No active cardiopulmonary disease.
[2023-09-03 16:02] LABS: Macrocytosis 1+
--- NOTE | 2023-09-03 16:02 | CTR_ITS ---
PROCEDURE INFORMATION: Exam: CT Abdomen And Pelvis Without Contrast Exam date and time: 09/03/2023 6:23 PM Age: 32 years old Clinical indication: Abdominal pain; Generalized; Prior surgery; Surgery date: 6+ months; Surgery type: Tubalsexse; Additional info: Diffuse abdominal pain, diarrhea, dehydration TECHNIQUE: Imaging protocol: Computed tomography of the abdomen and pelvis without contrast. Radiation optimization: All CT scans at this facility use at least one of these dose optimization techniques: automated exposure control; mA and/or kV adjustment per patient size (includes targeted exams where dose is matched to clinical indication); or iterative reconstruction. REPORTING DATA: Count of CT and Cardiac NM exams in prior 12 months: This patient has received 2 known CTs and 0 known cardiac nuclear medicine studies in the 12 months prior to the current study. COMPARISON: 1. CT abdomen pelvis w con* [id number] 08/19/2023 7:13 PM 2. CR (CHEST, ) 09/03/2023 4:16 PM RADIATION DOSE METRICS: Total DLP (mGy-cm): 960 FINDINGS: Tubes, catheters and devices: Partially visualized venous catheter terminates at the right atrium. Liver: Enlarged liver measures 20.3 cm in craniocaudal dimension. Marked diffuse hepatic hypoattenuation. Gallbladder and bile ducts: Normal. No calcified stones. No ductal dilation. Pancreas: Normal without ductal dilatation. Spleen: Normal. Adrenal glands: Normal. No mass. Kidneys and ureters: Two punctate left upper renal stones. Otherwise unremarkable. Stomach and bowel: No obstruction. Diffuse pancolonic edematous wall thickening and mild pericolonic fat stranding. Diffuse thickening of small bowel as well, particularly noticeable along the duodenum and jejunum. Appendix: No evidence of appendicitis. Intraperitoneal space: Moderate free pelvic fluid. No free air or well organized fluid collection. Vasculature: Unremarkable. No abdominal aortic aneurysm. Lymph nodes: Scattered mildly prominent mesenteric lymph nodes decreased from prior. Urinary bladder: Melendrez catheter within the decompressed urinary bladder. Reproductive: Unremarkable as visualized. Bones/joints: No acute fracture. Lumbosacral degenerative changes. Soft tissues: Mild body wall edema. Tiny fat containing umbilical hernia. CT/CT abdomen pelvis wo con [id number] IMPRESSION: 1. Enterocolitis, likely infectious or inflammatory. 2. Hepatomegaly with diffuse steatosis. 3. Nonobstructive left nephrolithiasis.
[2023-09-03 16:10] LABS: Glucose Point of Care 35 mg/dL (70-110)
--- NOTE | 2023-09-03 16:10 | PC.NURSE ---
XIOMARA REAVES NP NOTIFIED OF POC BLOOD GLUCOSE OF 35.
[2023-09-03] MEDS: calcium gluconate 0.9% NaCL 1 GM/50 ML PREMIX IV (16:11)
[2023-09-03] MEDS: dextrose 50% syringe 50 mL IVP ×2 (16:12→17:04)
[2023-09-03] MEDS: sodium chloride 0.9% 1,000 ML 999 ML IV ×2 (16:13→22:08)
--- NOTE | 2023-09-03 16:15 | ECG_ITS ---
[facility] Test Date: 2023-09-03 Pat Name: Elizabeth Adames Department: Room: Gender: Female Library Information Technician: : 1990 Requested By: Noa Little Order Number: [id number] Bernice MD: Mally Pierce M.D. Measurements Intervals [place] Rate: 112 P: 65 WA: 122 QRS: 3 QRSD: 74 T: 11 QT: 338 QTc: 462 Interpretive Statements SINUS TACHYCARDIA WITH OCCASIONAL VENTRICULAR PREMATURE COMPLEXES POSSIBLE ANTERIOR MYOCARDIAL INFARCTION , PROBABLY OLD [30 ms Q WAVE IN V3/V4, OR R < 0.2 mV IN V4] ABNORMAL RHYTHM ECG Compared to ECG 09/03/2023 13:59:16 Ventricular premature complex(es) now present Myocardial infarct finding now present Short [place] interval no longer present Electronically Signed On 09-03-2023 17:43:58 CDT by Mally Pierce M.D. [email or web address] centerAccudial Pharmaceuticalmer[facility].[employer]/store/OM/[id number]
[2023-09-03 16:43] LABS: Lactic Sepsis W/Reflex 7.1 mmol/L (0.5-2.2)
[2023-09-03] MEDS: HYDROmorphone 1 mg/mL INJ 1 mL 0.5 MG IVP (16:51)
[2023-09-03] MEDS: magnesium sulfate premix 1 GM/100 ML PIGGYBACK IV (17:05)
[2023-09-03 17:13] LABS: Troponin 5 2HR 19.93 ng/L (0-10); Troponin 5 2HR Delta -4.07 ABS# (0-10)
[2023-09-03 17:15] LABS: Glucose Point of Care 77 mg/dL (70-110)
[2023-09-03 17:42] LABS: Creatine Phosphokinase 66 U/L (26-192)
[2023-09-03] MEDS: dextrose 5%-sod chloride 0.9% 1,000 ML 125 ML IV (17:43)
[2023-09-03] MEDS: piperacillin-tazobactam 3.375 GM in sodium chloride 0.9% (plus) 50 ML IV (17:43)
[2023-09-03 17:58] LABS: Reflex Lactate Order REFLEX LACTIC ORDERD
[2023-09-03 17:59] LABS: Add Urine Microscopic? YES; Bilirubin Urine 2+ (Negative); Blood Urine Neg (Negative); Glucose Urine UA Norm (Normal); Ketones Urine 1+ (Negative); Leukocyte Esterase Urine Negative (Negative); Nitrate Urine Negative (Negative); Protein Urine 1+ (Negative); Urine Appearance Cloudy (CLEAR); Urine Color Amber (Yellow); Urobilinogen Urine 1 mg/dL (Negative); pH Urine 5 (5-7)
[2023-09-03 18:03] LABS: Glucose Point of Care 182 mg/dL (70-110)
[2023-09-03 18:11] LABS: Amorphous Sediment Urine 1+ /hpf; Bacteria Urine 1+ /hpf; Mucus Urine 1+ /hpf; RBC Urine RARE /hpf (0-2); Squamous Epithelial Cell Urine 0-4 /hpf (0-5); WBC Urine 0-4 /hpf (0-5)
[2023-09-03 18:12] LABS: Add Urine Culture? No
[2023-09-03] MEDS: levofloxacin-dextrose 5 % 750 MG/150 ML PREMIX 100 MG IV (18:33)
[2023-09-03] MEDS: ondansetron 2 mg/ML SDV 2 mL 4 MG IVP ×2 (19:21→21:04)
--- NOTE | 2023-09-03 20:46 | PM.HP ---
Providers/Chief Complaint Admitting Physician: Gisela Kelly MD Primary Care Provider: Kendrick Nascimento MD Chief Complaint: Syncopal episode History of Present Illness Elizabeth Adames is a 32 year old female with history of Crohn's disease diagnosed May 2023, depression anxiety presented with complaint of severe abdominal pain diffuse, 10 out of 10 crampy no aggravating or relieving factors associated with nausea vomiting and dizziness at home. She also reports diarrhea loose watery stools alternating with bloody diarrhea since last 4 to 7 days. She mentions she has continuous diarrhea off and on since the diagnosis of Crohn's disease. She is not on any medications for Crohn's disease since her GI appointment is scheduled for October 2023. As per the family her insurance does not approve for mesacol. There is no history of fever cold cough chest pain shortness of breath or urinary complaints. Review of Systems Narrative: As per HPI Medications/Allergies Home Medications Medication Instructions Recorded Confirmed Last Taken Type alprazolam 0.5 mg tablet 0.5 mg PO BID PRN Anxiety 03/12/23 09/03/23 1 Day Ago History ~08/18/23 sertraline 100 mg tablet 100 mg PO QAM 03/12/23 09/03/23 09/02/23 History pantoprazole 40 mg tablet,delayed 40 mg PO BID 6 weeks #84 tabs 07/02/23 09/03/23 09/02/23 Rx release (Protonix) ferrous sulfate, dried 159 mg (45 159 mg PO DAILY #30 tabs 07/12/23 09/03/23 09/02/23 Rx mg iron) tablet,extended release (iron ER) sodium chloride 1,000 mg soluble 1 g PO BID 14 days #28 tabs 08/21/23 09/03/23 09/02/23 Rx tablet sucralfate 1 gram tablet (Carafate) 1 g PO BID 4 weeks #56 tabs 08/21/23 09/03/23 09/02/23 Rx ondansetron HCl 4 mg tablet 4 mg PO Q8H PRN Nausea 09/03/23 09/03/23 Unknown History Allergies Allergy/AdvReac Type Severity Reaction Status Date / Time No Known Allergies Allergy Verified 07/10/23 08:51 PFSH Acute PFSH: Medical History Hematochezia Mild endometriosis (~04/24/23) Noted on the left round ligament at the time of laparoscopy for sterilization; incidental finding- Albino No pertinent past medical history neghx: htn,dm,thyroid,dvt/pe PCP: Dr. Nascimento Surgical History History of laparoscopy (~04/24/23) bilateral salpingectomy- performed by Dr. Franz at [facility]; mild endometriosis noted and treated. Family History Denies family history of Colon cancer Ovarian cancer Diabetes Heart disease Hypercholesteremia Breast cancer Hypertension Uterine cancer Thyroid disease Stroke Social History Smoking and tobacco/nicotine status: former use of tobacco/nicotine Alcohol intake: current Alcohol intake frequency: holidays/special occasions only Vitals/I&O/Wt Last Vital Signs Temp 97.8 F 09/03/23 13:55 Pulse 118 H 09/03/23 20:06 Resp 24 H 09/03/23 20:06 BP 93/55 09/03/23 20:06 Pulse Ox 100 09/03/23 20:06 O2 Del Method Room Air 09/03/23 14:31 09/03/23 09/03/23 09/03/23 06:59 14:59 22:59 Intake Total 1200 / 1200 Balance 1200 / 1200 Weight last 48 hrs Weight 83.915 kg Physical Exam Narrative: She is alert awake oriented x3 in severe distress due to abdominal pain, and lethargic Chest clear to auscultation bilaterally Cardiovascular normal heart sounds no murmurs, tachycardic Abdomen soft nondistended diffusely tender diminished bowel sounds Extremities 1+ bilateral lower extremity pitting edema present Urinary Catheter Management: Melendrez: Cath Placed During This Visit: yes Reason for Continuing Indwelling Catheter: Accurate Measurement of Urinary Output in Critically Ill Patients Urinary Catheter Date of Insertion: 09/03/23 Urinary Catheter Time of Insertion: 17:55 Data 09/03/23 14:52 09/03/23 14:52 Micro: Microbiology 09/03/23 16:40 Blood Culture - Preliminary Blood SPECIMEN COLLECTED 09/03/23 16:40 Blood Culture - Preliminary Blood SPECIMEN COLLECTED CT Abd/Pel: Radiologist's impression: IMPRESSION: 1. ? Enterocolitis, likely infectious or inflammatory. 2. ? Hepatomegaly with diffuse steatosis. 3. ? Nonobstructive left nephrolithiasis. ? CXR: Radiologist's impression: No acute findings EKG 1: My Interpretation: Sinus tachycardia at [address]-T changes A&P Assessment and plan (1) Enterocolitis: (2) Sepsis: (3) Acute kidney injury: (4) Hypomagnesemia: (5) Exacerbation of Crohn's disease: (6) Acute hyponatremia: (7) Acute dehydration: (8) Anemia: Qualifiers: Anemia type: unspecified type Qualified Code(s): D64.9 - Anemia, unspecified Plan 32 year old female with history of Crohn's disease diagnosed May 2023, depression anxiety presented with complaint of severe abdominal pain diffuse, 10 out of 10 crampy no aggravating or relieving factors associated with nausea vomiting and dizziness at home and found to have hemoglobin 8.5 WBC count 23.4 calcium 6.0 magnesium 1.6 sodium 120 creatinine 2.9 glucose 35 lactic [address] abdomen pelvis consistent with enterocolitis ID- Sepsis secondary to enterocolitis Admit to ICU Lactic acid trending down to 4 post 1 L of normal saline bolus in the ER IV fluids normal saline at 100 mL/h, will give 1 L normal saline bolus IV ciprofloxacin 400 mg every 12 IV Flagyl 500 mg every 8 hours IV pantoprazole 40 mg every 12 hours IV Zofran 4 mg every 8 hours as needed IV morphine 2 mg every 4 hours as needed for pain P.o. alprazolam 0.5 mg twice a day as needed for anxiety Will replace magnesium with p.o. magnesium 400 mg twice a day for 2 days Recheck labs in a.m. Cardiovascular- Hemodynamically stable for now. Will continue with IV fluids Respiratory-stable Nephrology-acute renal failure secondary to sepsis and diarrhea, will continue with IV fluids. Endocrine-hypoglycemia secondary to diarrhea loss of appetite and sepsis. Monitor fingersticks every 2 hours for now. Prophylaxis -intermittent compression devices for DVT prophylaxis Diet-clear liquid diet for now CODE STATUS she is full code for now. Attestations Medical Necessity Statement*: She needs hospitalization for more than 2 midnights for management and ICU care for sepsis secondary to enterocolitis Time Spent in Patient Care: 30 minutes Coding Level of Care Code Acute Code for Chg Fwd Diagnoses Enterocolitis K52.9 Sepsis A41.9 Acute kidney injury N17.9 Hypomagnesemia E83.42 Exacerbation of Crohn's disease K50.90 Acute hyponatremia E87.1 Acute dehydration E86.0 Anemia D64.9 Anemia type: unspecified type Time Spent (min) 30
[2023-09-03 21:01] LABS: Glucose Point of Care 141 mg/dL (70-110)
[2023-09-03] MEDS: pantoprazole 40 mg SDV IVP (21:02)
[2023-09-03] MEDS: morphine 4 mg/mL SDV 1 mL 2 MG IVP (21:02)
[2023-09-03] MEDS: sodium chloride 0.9% 1,000 ML 100 ML IV (21:03)
[2023-09-03 21:17] LABS: Troponin 5 6HR 86.84 ng/L (0-10)
[2023-09-03 21:22] LABS: Troponin 5 6HR Delta 62.84 ng/L (0-12)
[2023-09-03] MEDS: ciprofloxacin 400 MG/200 ML PREMIX 200 MG IV (22:05)
[2023-09-03] MEDS: metroNIDAZOLE IV 500 MG/100 ML PREMIX 100 MG IV (22:07)
--- NOTE | 2023-09-03 22:43 | ECG_ITS ---
[facility] Test Date: 2023-09-03 Pat Name: Elizabeth Adames Department: Room: [facility] Gender: Female Fabrication Welder: : 1990 Requested By: Gisela Kelly Order Number: [id number] Bernice MD: Bessy Marshall M.D. Measurements Intervals [place] Rate: 112 P: 50 LA: 104 QRS: 10 QRSD: 89 T: 6 QT: 366 QTc: 500 Interpretive Statements SINUS TACHYCARDIA WITH SHORT LA INTERVAL ABNORMAL RHYTHM ECG Compared to ECG 09/03/2023 16:44:51 Short [place] interval now present Ventricular premature complex(es) no longer present Myocardial infarct finding no longer present Electronically Signed On 09-04-2023 19:35:22 CDT by Bessy Marshall M.D. [id number]
[2023-09-03] MEDS: ALPRAZolam 0.5 mg Tablet PO (23:21)
[2023-09-04] VITALS (198 sets, daily range): BP systolic 83–126; BP diastolic 36–73; PULSE 100–150; RESP 12–36; TEMP 36.2–36.7; O2SAT 86–100
[2023-09-04] MEDS: bismuth subsalicylate 240 mL Btl 15 ML PO ×3 (00:10→19:39)
[2023-09-04 00:43] LABS: Glucose Point of Care 119 mg/dL (70-110)
[2023-09-04 00:43] LABS: Glucose Point of Care 88 mg/dL (70-110)
[2023-09-04] MEDS: HYDROmorphone 1 mg/mL INJ 1 mL 0.4 MG IVP ×3 (02:02→19:38)
[2023-09-04] MEDS: promethazine 25 mg/mL SDV 1 mL IM (02:04)
--- NOTE | 2023-09-04 03:38 | PC.NURSE ---
Patient arrived to unit via Ed. AAOx4 and lethargic. Pt complains of pain in upper gastirc region, rating pain at a 9 out of 10. Pain medication administered @210. Pt complains of continuous heartburn. No nausea present at the time. Bladder scanned pt due to minimal output noted in degroot. 198mL noted in the bladder. Withdrew 10mL NS from catheter, advanced and re-instilled 10mL. Pt stated felt slight pressure when pressing on the bladder. Pt had a medium, loose bowel movement. Sample take to lab for c-diff test. PT complained of heartburn again administered PRN heartburn relief @0010. Reassessed pt @0110, pt stated, it seemed better. Pt complained of pain, rating it at 8 out of 10. Pt
--- NOTE | 2023-09-04 04:18 | XRR_ITS ---
PROCEDURE INFORMATION: Exam: XR Chest Exam date and time: 09/04/2023 4:38 AM Age: 32 years old Clinical indication: Other: Seizure TECHNIQUE: Imaging protocol: Radiologic exam of the chest. Views: 1 view. COMPARISON: CR (CHEST, ) 09/03/2023 4:16 PM FINDINGS: Lungs: Unremarkable. No consolidation. Pleural spaces: Unremarkable. No pleural effusion. No pneumothorax. Heart/Mediastinum: Unremarkable. No cardiomegaly. Vasculature: Right IJ line again seen, tip overlies probable RV. Consider need for retraction about 7 cm. Bones/joints: Unremarkable. XR/XR chest 1V portable [id number] IMPRESSION: 1. No acute cardiopulmonary finding. 2. Right IJ line again seen, tip overlies probable RV. Consider need for retraction about 7 cm.
[2023-09-04] MEDS: sodium chloride 0.9% 1,000 ML 999 ML IV (04:21)
[2023-09-04 04:24] LABS: Basophils % 0.1 %; Hematocrit 28.1 % (36-47); Lymphocytes # 4.6 10^3/uL (0.8-4.8); Lymphocytes % 14.9 %; Mean Corpuscular HGB Conc 28.1 g/dL (30-55); Mean Corpuscular Hemoglobin 26.1 pg (27-33); Mean Corpuscular Volume 92.7 fl (85-98); Mean Platelet Volume 9.3 fL (7.4-10.4); Monocytes # 1.2 10^3/uL (0.2-0.9); Monocytes % 3.8 %; Neutrophils # 23.84 10^3/uL (1.8-7.7); Neutrophils % 78.1 %; Nucleated Red Blood Cells % 0.1 %; Platelet Count 253 10^3/cmm (157-399); Red Blood Count 3.03 10^6/uL (3.85-5.65); Red Cell Distribution Width 20.7 % (12.1-15.1)
[2023-09-04 04:41] LABS: Troponin T (5th) Once 59 ng/L (0-10)
[2023-09-04 04:44] LABS: Alanine Aminotransferase 53 U/L (0-33); Albumin Level 0.9 g/dL (3.5-5.2); Alkaline Phosphatase 171 U/L (35-105); Anion Gap 18.6 (5-19); Aspartate Amino Transferase 33 U/L (0-32); Blood Urea Nitrogen 19 mg/dL (6-20); Carbon Dioxide 17 mmol/L (22-29); Chloride 88 mmol/L (98-107); Globulin 2.7 g/dL (1.3-4.6); Glucose 87 mg/dL (65-115); Magnesium 1.9 mg/dL (1.7-2.3); Osmolality Calculated 250 mOsm/kg (285-295); Phosphorus 5.5 mg/dL (2.5-4.5); Potassium 4.6 mmol/L (3.5-5.1); Total Bilirubin 0.5 mg/dL (0.15-1.2); Total Protein 3.6 g/dL (6.6-8.7)
[2023-09-04 04:46] LABS: Slide Review Slide Review Perform
[2023-09-04 04:47] LABS: White Blood Count 30.55 10^3/uL (3.29-11.43)
[2023-09-04 04:48] LABS: Calcium 5.9 mg/dL (8.5-10.5); Lactic Sepsis W/Reflex 5.4 mmol/L (0.5-2.2); Sodium 119 mmol/L (136-145)
--- NOTE | 2023-09-04 05:02 | PC.NURSE ---
Ambulated patient to the bedside commode. At the time of ambulation patient was talking and AAOx4. Once on the bedside pt began to seize. Pt leaned to the right and then threw head back as muscles grew rigid. Seizure lasted approximately one minute. Pt was able to stand slightly but once on feet, pt began to seize again. Along with the charge nurse, this nurse lowered patient to the floor. Rapid response was called, was alerted. Using a lift mat, patient was lifted back into bed. Bolus NS administered, 1g Keppra administered. X-ray performed to ensure pt had not aspirated. X-ray showed no signs of aspiration. Pt currently sleeping, respirations are even and non-labored. No current s/s of distress. Bedside table and call light within reach.
[2023-09-04 05:14] LABS: Glucose Point of Care 81 mg/dL (70-110)
[2023-09-04 05:14] LABS: Glucose Point of Care 77 mg/dL (70-110)
[2023-09-04] MEDS: metroNIDAZOLE IV 500 MG/100 ML PREMIX 100 MG IV (05:59)
[2023-09-04 06:09] LABS: Reflex Lactate Order REFLEX LACTIC ORDERD
--- NOTE | 2023-09-04 06:29 | P.EN_ITS ---
Event Note Event Note: Nurse called to inform that the patient was having a seizure like episode. When I went to see the patient she was in postictal stage. No injuries noted, no tongue bite. As per the nurse, patient was having a bowel movement on the , when she suddenly became unresponsive rolled her head back, rolled up her eyes and was staring for 90 seconds. She was nodding her head [id number] but had no tonic-clonic movements. Patient was in the process of being transferred from to the bed when she had another episode lasting less than 30 seconds. During these 2 episodes her vitals were stable, no injuries noted, 1 g of IV Keppra was given. After the second episode she regained consciousness, was comprehensive, she did not remember the sequence of events, and was feeling exhausted. Her neurological exam was normal. Probable atypical absence seizure, likely secondary to severe dehydration and hyponatremia with sodium of 120. Need neurology consult in a.m. and consideration for iv infusion of hypertonic 3% saline. She received total of 3 L of normal saline bolus in ICU. Event Notes Attestations Time Spent in Patient Care: Greater than 35 minutes (>than 50% of time spent in counselling and/or direct pt care on unit) .
--- NOTE | 2023-09-04 06:43 | PC.NURSE ---
Rapid Response called for patient seizure. Patient was on bedside commode with two nurses present when patient appeared to seize, stiffened arms, and head rolled back. Hospitalist called who arrived on unit and visualized second seizure during patient transfer back to bed. Patient was then laid on the floor. Rapid called and patient was lifted back to bed on hover mat. Kepra was admin to patient along with fluid bolus. Labs drawn on patient along with chest xray.
[2023-09-04 06:53] LABS: Lactic Acid level (Lactate) 3.3 mmol/L (0.5-2.2)
[2023-09-04] MEDS: sodium chloride 0.9% 1,000 ML 100 ML IV ×2 (07:11→17:01)
[2023-09-04] MEDS: pantoprazole 40 mg SDV IVP ×2 (08:33→19:38)
[2023-09-04] MEDS: magnesium oxide 400 mg tablet PO (08:33)
[2023-09-04] MEDS: ciprofloxacin 400 MG/200 ML PREMIX 200 MG IV (09:05)
[2023-09-04 11:49] LABS: Basophils # 0.2 10^3/uL (0.0-0.1); Basophils % 0.8 %; Hematocrit 25.1 % (36-47); Lymphocytes # 2.4 10^3/uL (0.8-4.8); Lymphocytes % 10.3 %; Mean Corpuscular HGB Conc 28.3 g/dL (30-55); Mean Corpuscular Hemoglobin 26.4 pg (27-33); Mean Corpuscular Volume 93.3 fl (85-98); Monocytes # 0.4 10^3/uL (0.2-0.9); Monocytes % 1.8 %; Neutrophils # 19.28 10^3/uL (1.8-7.7); Neutrophils % 83.2 %; Nucleated Red Blood Cells % 0 %; Platelet Count 184 10^3/cmm (157-399); Red Blood Count 2.69 10^6/uL (3.85-5.65); Red Cell Distribution Width 20.4 % (12.1-15.1); White Blood Count 23.16 10^3/uL (3.29-11.43)
[2023-09-04 11:59] LABS: C Reactive Protein 82.8 mg/L (0.0-4.9)
[2023-09-04 12:06] LABS: Procalcitonin 2.39 ng/mL (0-0.5)
[2023-09-04 12:07] LABS: Total Bilirubin 0.5 mg/dL (0.15-1.2)
[2023-09-04 12:21] LABS: Ammonia 83 umol/L (11-51)
[2023-09-04 12:22] LABS: Blood Urea Nitrogen 19 mg/dL (6-20)
[2023-09-04] MEDS: piperacillin-tazobactam 3.375 GM in sodium chloride 0.9% (plus) 50 ML IV ×2 (12:44→19:38)
[2023-09-04 12:49] LABS: Alanine Aminotransferase 49 U/L (0-33); Albumin Level 0.8 g/dL (3.5-5.2); Alkaline Phosphatase 162 U/L (35-105); Aspartate Amino Transferase 29 U/L (0-32); Carbon Dioxide 18 mmol/L (22-29); Chloride 88 mmol/L (98-107); Glomerular Filtration Rate 17.3 mL/min (90-130); Osmolality Calculated 248 mOsm/kg (285-295); Total Protein 3.6 g/dL (6.6-8.7)
[2023-09-04 12:51] LABS: Sodium 118 mmol/L (136-145)
[2023-09-04 12:52] LABS: Anion Gap 16.4 (5-19); Calcium 5.7 mg/dL (8.5-10.5); Globulin 2.8 g/dL (1.3-4.6); Glucose 93 mg/dL (65-115); Potassium 4.4 mmol/L (3.5-5.1)
[2023-09-04] MEDS: VANCOMYCIN PO ×2 (13:08→17:02)
[2023-09-04] MEDS: sodium chloride 3% 100 ML in empty flexible container 1 EACH 200 ML IV ×2 (13:09→20:09)
[2023-09-04 13:10] LABS: Slide Review Slide Review Perform
[2023-09-04 13:21] LABS: Amphetamines Screen Urine Positive (Negative); Barbiturates Screen Urine Negative (Negative); Benzodiazepines Screen Urine Positive (Negative); Cocaine Screen Urine Positive (Negative); Opiate Screen Urine Positive (Negative); PCP Screen Urine Negative (Negative); THC Screen Urine Negative (Negative)
[2023-09-04 13:30] LABS: Potassium, Radom Urine 35 mmol/L; Urine Creatinine 183 mg/dL (28-217); Urine Random Chloride 24 mmol/L; Urine Random Sodium 30 mmol/L
--- NOTE | 2023-09-04 14:42 | P.PN_ITS ---
Subjective Subjective: Admitted overnight. H&P and labs along with event note appreciated. Examination patient laying comfortably in bed, drowsy but wakes up to verbal stimulus though dozing off during conversation. On waking up AOx3. Complaining of pain in her belly and asking for pain medications. No diarrhea or hematochezia since today morning. Patient remains tachycardic though blood pressures are stable. Patient herself denies any nausea or vomiting. Blood was appreciated on Vicryl of 30,000, hemoglobin of 7.9 R253, CMP showing sodium of 119, creatinine 3.5, lactic of 5.4 trending down to 3.3, calcium of 5.9, AST/ALT of 33/53, albumin of 0.9 Vitals/I&O/Wt Last Vital Signs Temp 97.1 F L 09/04/23 14:00 Pulse 108 H 09/04/23 14:00 Resp 16 09/04/23 14:00 BP 95/58 09/04/23 14:00 Pulse Ox 98 09/04/23 14:00 O2 Del Method Nasal Cannula 09/04/23 04:14 O2 Flow Rate 4 09/04/23 04:14 09/03/23 09/04/23 09/04/23 22:59 06:59 14:59 Intake Total 1680 / 1680 2661.28 / 4341.28 3517.947 / 3517.947 Output Total 5 / 5 Balance 1680 / 1680 2656.28 / 4336.28 3517.947 / 3517.947 Weight last 48 hrs Weight 83.915 kg Physical Exam 2 Narrative: General: No acute distress, drowsy, easy to wake, answers questions appropriately on waking up, AO x3 HEENT: PERRLA, pupils bilaterally equal and reactive Chest: Normal vesicular breath sounds, no added sounds, equal good air entry bilaterally CVS: S1-S2 regular, no murmurs, tachycardia, no gallops, no rubs Abdomen: Soft, generalized tenderness, sluggish bowel sounds no organomegaly, Neuro: No focal deficits, no facial deformity, AO x3, moving all limbs Urinary Catheter Management: Melendrez: Cath Placed During This Visit: yes Reason for Continuing Indwelling Catheter: Accurate Measurement of Urinary Output in Critically Ill Patients Urinary Catheter Date of Insertion: 09/03/23 Urinary Catheter Time of Insertion: 17:55 Data 09/04/23 11:33 09/04/23 11:33 Micro: Microbiology 09/04/23 01:45 Stool Lactoferrin - Final Stool Occult Blood (FIT) - Final 09/03/23 16:40 Blood Culture - Preliminary Blood SPECIMEN COLLECTED 09/03/23 16:40 Blood Culture - Preliminary Blood SPECIMEN COLLECTED A&P Assessment and plan (1) Acute hyponatremia: (2) Enterocolitis: (3) Sepsis: (4) Acute kidney injury: (5) Exacerbation of Crohn's disease: (6) Anemia: Qualifiers: Anemia type: unspecified type Qualified Code(s): D64.9 - Anemia, unspecified (7) Severe protein-energy malnutrition: (8) Seizure: (9) Substance abuse: (10) Hematochezia: (11) Acute dehydration: (12) Elevated lactic acid level: (13) Hypomagnesemia: Plan 32 year old female with history of Crohn's disease diagnosed May 2023, depression anxiety presented with complaint of severe abdominal pain diffuse, 10 out of 10 crampy no aggravating or relieving factors associated with nausea vomiting and dizziness at home and found to have hemoglobin 8.5 WBC count 23.4 calcium 6.0 magnesium 1.6 sodium 120 creatinine 2.9 glucose 35 lactic acid [address] abdomen pelvis consistent with enterocolitis Sepsis: Ruled in insetting of elevated lactate, tachycardia, elevated white count, concerns for endorgan damage with renal failure. For now we will put her on a broader coverage of antibiotics with Zosyn. Await stool studies. Given elevated white count, patient been significantly sick, possibility of C. difficile cannot be ruled out. Unfortunately C. difficile result comes back in 3 to 4 days for now we will start patient on oral vancomycin 250 every 6 as well. Keep mean artery pressure 65. Acute hyponatremia: Unknown cause for now. Cannot rule out SIADH versus secondary dehydration. Continue with IV fluids for now. Check urine lites, urine creatinine. Repeat stat CMP. We will plan for further IV fluids versus 3% normal saline as per repeat labs. Most likely patient would need 3% normal saline. Check sodium level every 6 hours. Will target improvement of 8 to 10 mEq in next 24 hours. Colitis: Appreciate CT abdomen pelvis results without contrast. For now continue with IV Zosyn and oral vancomycin as above. Cannot rule out exacerbation of Crohn's though does not have a formal diagnosis for yet. Patient is currently not on steroids. Check CRP. Start on IV Solu-Medrol 1 mg/kg body weight every 12 hourly. Repeat BRONSON panel. Lactate elevated. Cannot rule out ischemic colitis though unfortunately cannot do CTA study given acute renal failure. Acute renal failure: With oliguria. Could be in setting of dehydration versus severe illness. Medical reconciliation done for nephrotoxic drugs. Monitor urine output. Keep mean arterial pressure 65. Add urine lites and urine creatinine to sample from yesterday. Follow-up electrolytes including phosphorus and magnesium. Altered mental status: Most likely in setting of severe weakness, acute kidney injury with renal failure, severe hyponatremia with postictal status given seizure earlier in the morning. Check ammonia levels. Anemia: Most likely in setting of hematochezia. Check iron panel. Repeat CBC. If patient remains tachycardic with hemoglobin less than 8 will transfuse PRBC. Protonix IV twice daily. Seizure: Does not have past medical history of seizure disorder. Cannot rule o ut in setting of severe hyponatremia. Does have urine drug screen positive for amphetamines in the past. Repeat urine drug screen. Asked to the sample from yesterday. Hold off on Keppra for now. Seizure precautions. Aspiration precaution. Elevated lactate Severe protein energy malnutrition: Albumin level found to be 0.8. We will consult dietitian for TPN. Central line in place. Hypoglycemia: Hypoglycemia protocol Patient's care discussed in detail with her [id number] over the phone. Patient is full code. Clear liquid diet Protonix for PUD prophylaxis SCDs for DVT prophylaxis. Attestations Medical Necessity Statement*: Requires further hospitalization for management of acute hyponatremia with renal failure, anemia in setting of colitis with hematochezia, sepsis, seizure most likely in setting of acute hyponatremia Coding Level of Care Code Critical Care >/= 30 minutes Critical care time (in minutes): 80 The high probability of a clinically significant, sudden or life threatening deterioration, as referenced in this documentation, required my full and direct attention, intervention and personal management. The critical care time shown is in addition to time spent performing any reported separately billable procedures and includes the following: [x] Data and vital sign review and interpretation [x ] Patient assessment, examination and intervention [x] Medication orders and management [x] Patient/Family updates as able [x] Care Coordination and Documentation. Diagnoses Acute hyponatremia E87.1 Enterocolitis K52.9 Sepsis A41.9 Acute kidney injury N17.9 Exacerbation of Crohn's disease K50.90 Anemia D64.9 Anemia type: unspecified type Severe protein-energy malnutrition E43 Seizure R56.9 Substance abuse F19.10 Hematochezia K92.1 Acute dehydration E86.0 Elevated lactic acid level R79.89 Hypomagnesemia E83.42
[2023-09-04] MEDS: FUROsemide 10 mg/mL SDV 4mL 40 MG IVP (15:10)
[2023-09-04 15:45] LABS: Amphetamines Screen Urine Positive (Negative); Barbiturates Screen Urine Negative (Negative); Benzodiazepines Screen Urine Positive (Negative); Cocaine Screen Urine Negative (Negative); Opiate Screen Urine Negative (Negative); PCP Screen Urine Negative (Negative); THC Screen Urine Negative (Negative)
[2023-09-04 15:57] LABS: Anion Gap 13.8 (5-19); Blood Urea Nitrogen 20 mg/dL (6-20); Carbon Dioxide 19 mmol/L (22-29); Chloride 90 mmol/L (98-107); Glomerular Filtration Rate 19.5 mL/min (90-130); Glucose 95 mg/dL (65-115); Osmolality Calculated 248 mOsm/kg (285-295); Potassium 4.8 mmol/L (3.5-5.1)
[2023-09-04 16:03] LABS: Calcium 5.6 mg/dL (8.5-10.5); Sodium 118 mmol/L (136-145)
[2023-09-04 16:15] LABS: Lactic Sepsis W/Reflex 1.9 mmol/L (0.5-2.2)
[2023-09-04 16:18] LABS: Potassium, Radom Urine 37 mmol/L; Urine Creatinine 229 mg/dL (28-217)
[2023-09-04 16:23] LABS: Urine Random Chloride < 10 mmol/L; Urine Random Sodium < 10 mmol/L
--- NOTE | 2023-09-04 17:33 | PC.NURSE ---
Shift note, multiple lab draws, patient still hyponaturemic, Dr. Hogan aware. Patient being treated see MAR. [employer] on board, TPN to be started tomorrow per [employer] Landon. Starting albumin per Dr. Hogan, see MAR.
[2023-09-04] MEDS: albumin 25 G/100 ML BAG 60 G IV (17:41)
[2023-09-04 19:16] LABS: Sodium 117 mmol/L (136-145)
[2023-09-04] MEDS: ondansetron 2 mg/ML SDV 2 mL 4 MG IVP (19:38)
[2023-09-04 22:51] LABS: Anion Gap 15.3 (5-19); Blood Urea Nitrogen 19 mg/dL (6-20); Calcium 6.1 mg/dL (8.5-10.5); Carbon Dioxide 19 mmol/L (22-29); Chloride 91 mmol/L (98-107); Glomerular Filtration Rate 19.5 mL/min (90-130); Glucose 95 mg/dL (65-115); Osmolality Calculated 254 mOsm/kg (285-295); Potassium 4.3 mmol/L (3.5-5.1); Sodium 121 mmol/L (136-145)
[2023-09-05] VITALS (163 sets, daily range): BP systolic 73–137; BP diastolic 48–101; PULSE 86–112; RESP 12–27; TEMP 36.6; O2SAT 92–100
[2023-09-05] MEDS: bismuth subsalicylate 240 mL Btl 15 ML PO ×2 (00:32→08:30)
[2023-09-05] MEDS: VANCOMYCIN PO ×4 (00:34→18:11)
[2023-09-05] MEDS: albumin 25 G/100 ML BAG 60 G IV ×3 (00:36→16:47)
[2023-09-05] MEDS: ALPRAZolam 0.5 mg Tablet PO (00:49)
[2023-09-05] MEDS: sodium chloride 0.9% 1,000 ML 100 ML IV ×3 (01:32→22:06)
[2023-09-05] MEDS: HYDROmorphone 1 mg/mL INJ 1 mL 0.4 MG IVP ×4 (02:23→22:13)
[2023-09-05] MEDS: ondansetron 2 mg/ML SDV 2 mL 4 MG IVP (02:24)
[2023-09-05] MEDS: piperacillin-tazobactam 3.375 GM in sodium chloride 0.9% (plus) 50 ML IV ×3 (03:57→20:45)
[2023-09-05 04:21] LABS: Basophils # 0.1 10^3/uL (0.0-0.1); Basophils % 0.6 %; Hematocrit 26.4 % (36-47); Lymphocytes # 2.2 10^3/uL (0.8-4.8); Lymphocytes % 9.7 %; Mean Corpuscular HGB Conc 31.4 g/dL (30-55); Mean Corpuscular Hemoglobin 27.9 pg (27-33); Mean Corpuscular Volume 88.9 fl (85-98); Mean Platelet Volume 9.7 fL (7.4-10.4); Monocytes # 0.5 10^3/uL (0.2-0.9); Monocytes % 2.2 %; Neutrophils # 19.36 10^3/uL (1.8-7.7); Neutrophils % 83.8 %; Nucleated Red Blood Cells % 0 %; Platelet Count 101 10^3/cmm (157-399); Red Blood Count 2.97 10^6/uL (3.85-5.65); Red Cell Distribution Width 19.1 % (12.1-15.1); White Blood Count 23.11 10^3/uL (3.29-11.43)
[2023-09-05 04:49] LABS: Alanine Aminotransferase 45 U/L (0-33); Alkaline Phosphatase 183 U/L (35-105); Aspartate Amino Transferase 28 U/L (0-32)
[2023-09-05 05:13] LABS: Slide Review Slide Review Perform
[2023-09-05 05:20] LABS: Anion Gap 18.2 (5-19); Blood Urea Nitrogen 20 mg/dL (6-20); Calcium 6.5 mg/dL (8.5-10.5); Carbon Dioxide 18 mmol/L (22-29); Chloride 89 mmol/L (98-107); Globulin 2.3 g/dL (1.3-4.6); Glomerular Filtration Rate 19.5 mL/min (90-130); Glucose 92 mg/dL (65-115); Osmolality Calculated 254 mOsm/kg (285-295); Potassium 4.2 mmol/L (3.5-5.1); Sodium 121 mmol/L (136-145); Total Bilirubin 1.8 mg/dL (0.15-1.2); Total Protein 4.3 g/dL (6.6-8.7)
--- NOTE | 2023-09-05 07:49 | P.PN_ITS ---
Subjective Subjective: Patient seen multiple times during the day. Earlier today morning when seen she seems a little more awake, states she is feeling better. Having less bowel movements, no more hematochezia. Denies any nausea Still tired. Urine output seems to be improving overnight. Has remained hemodynamically stable and afebrile. Heart rate improving and less tachycardic. Blood work in the morning showed white count improving to 23,000, hemoglobin stable at 8.3 platelet count trending down to 101, CMP showing sodium level improving to 124, chloride of 90, anion gap of 17, creatinine improving to 2.1, calcium is 6.9 though corrected calcium is normal for albumin, bilirubin of 1.8, AST/ALT of 28/45, alkaline phosphatase of 183, albumin improved to 2. Patient started on TPN yesterday. Urine output last night documented for the patient at 450 cc. Urine drug screen found to be positive for amphetamine and cocaine. Vitals/I&O/Wt Last Vital Signs Temp 97.9 F 09/05/23 19:00 Pulse 96 09/06/23 07:30 Resp 16 09/06/23 07:30 BP 100/63 09/06/23 07:30 Pulse Ox 95 09/06/23 07:30 O2 Del Method Room Air 09/05/23 20:00 O2 Flow Rate 4 09/04/23 04:14 09/05/23 09/06/23 09/06/23 22:59 06:59 14:59 Intake Total 1767.216 / 3598.496 151.28 / 3749.776 390 / 390 Output Total 2100 / 2100 1450 / 3550 Balance -332.784 / 1498.496 -1298.72 / 199.776 390 / 390 Physical Exam Narrative: General: No acute distress, less drowsy,answers questions appropriately on wakin g up, AO x3 HEENT: PERRLA, pupils bilaterally equal and reactive Chest: Normal vesicular breath sounds, no added sounds, equal good air entry bilaterally CVS: S1-S2 regular, no murmurs, tachycardia, no gallops, no rubs Abdomen: Soft, generalized tenderness, sluggish bowel sounds no organomegaly, Neuro: No focal deficits, no facial deformity, AO x3, moving all limbs Urinary Catheter Management: Melendrez: Cath Placed During This Visit: yes Reason for Continuing Indwelling Catheter: Accurate Measurement of Urinary Output in Critically Ill Patients Urinary Catheter Date of Insertion: 09/03/23 Urinary Catheter Time of Insertion: 17:55 Data 09/05/23 04:00 09/06/23 03:40 A&P Assessment and plan (1) Acute hyponatremia: (2) Enterocolitis: (3) Sepsis: (4) Acute kidney injury: (5) Exacerbation of Crohn's disease: (6) Anemia: Qualifiers: Anemia type: unspecified type Qualified Code(s): D64.9 - Anemia, unspecified (7) Severe protein-energy malnutrition: (8) Seizure: (9) Substance abuse: (10) Hematochezia: (11) Acute dehydration: (12) Elevated lactic acid level: (13) Hypomagnesemia: (14) High anion gap metabolic acidosis: (15) Thrombocytopenia: Plan 32 year old female with history of Crohn's disease diagnosed May 2023, depression anxiety presented with complaint of severe abdominal pain diffuse, 10 out of 10 crampy no aggravating or relieving factors associated with nausea vomiting and dizziness at home and found to have hemoglobin 8.5 WBC count 23.4 calcium 6.0 magnesium 1.6 sodium 120 creatinine 2.9 glucose 35 [address] abdomen pelvis consistent with enterocolitis Sepsis: Ruled in insetting of elevated lactate, tachycardia, elevated white count, concerns for endorgan damage with renal failure. For now c/w Zosyn and oral vancomycin. Await stool studies. Given elevated white count, patient been significantly sick, possibility of C. difficile cannot be ruled out. Unfortunately C. difficile result comes back in 3 to 4 days. Results not yet available. C/w oral vancomycin 250 every 6 as well. Keep mean artery pressure 65. Acute hyponatremia: Unknown cause for now. Cannot rule out SIADH versus secondary dehydration versus possibly secondary to severe hypoalbuminemia. Improving appropriately. Continue with IV fluids for now. Recheck sodium levels in afternoon. Depending on sodium levels will plan for 3% infusion. Will target improvement of 8 to 10 mEq in next 24 hours. Colitis: Appreciate CT abdomen pelvis results without contrast. For now continue with IV Zosyn and oral vancomycin as above. Cannot rule out exacerbation of Crohn's though does not have a formal diagnosis for yet. Patient is currently not on steroids. CRP elevated. Will repeat in next 48 hours. Continue with IV Solu-Medrol 1 mg/kg body weight every 12 hourly. Repeat BRONSON panel sent. Lactate elevated. Cannot rule out ischemic colitis though unfortunately cannot do CTA study given acute renal failure though overall clinical picture the patient improving so less likely. Acute renal failure: Creatinine improving, urine output improving. Could be in setting of dehydration versus severe illness. Medical reconciliation done for nephrotoxic drugs. Monitor urine output. Keep mean arterial pressure 65. Add urine lites and urine creatinine to sample from yesterday. Follow-up electrolytes including phosphorus and magnesium. Altered mental status: Most likely in setting of severe weakness, acute kidney injury with renal failure, severe hyponatremia with postictal status given seizure earlier in the morning. Substance abuse with amphetamine and cocaine also contributing. Continue to monitor. Anemia: Most likely in setting of hematochezia. Hemoglobin better. Post 2 unit of blood transfusion. Monitor hemoglobin daily for now. Protonix IV twice daily. Seizure: Does not have past medical history of seizure disorder. Most likely in setting of amphetamine and cocaine abuse.Cannot rule out in setting of severe hyponatremia. Aspiration precaution, seizure precaution. Hold off on further Keppra for now. Substance abuse: Urine drug screen from admission positive for amphetamines, benzos again in 12 hours postadmission positive for both amphetamines and cocaine. Patient after talking in detail does state that she has been using amphetamines and cocaine on and off to help with pain in last 1 week. Counseled in detail a gainst using any further recreational drugs. Thrombocytopenia: Platelet count has dropped from more than 300-1 01. Hematochezia is improving. For now we will continue to monitor. Hold off on any further heparin. Check DIC panel. Check HIT panel. High anion gap metabolic acidosis/elevated lactate Severe protein energy malnutrition: Albumin level improving. Continue with TPN. Appreciate dietitian recommendation. Continue with IV albumin every 8 hourly for now. Hypoglycemia: Hypoglycemia protocol Patient's care discussed in detail with her [id number] over the phone. Patient is full code. Advance to full liquid diet Protonix for PUD prophylaxis SCDs for DVT prophylaxis. Attestations Medical Necessity Statement*: Requires further hospitalization for management of severe anemia in setting of hematochezia from colitis most likely Crohn's flare, severe acute kidney injury with metabolic acidosis and oliguria, hyponatremia, seizure Coding Level of Care Code Critical Care >/= 30 minutes Critical care time (in minutes): 90 The high probability of a clinically significant, sudden or life threatening deterioration, as referenced in this documentation, required my full and direct attention, intervention and personal management. The critical care time shown is in addition to time spent performing any reported separately billable procedures and includes the following: [x] Data and vital sign review and interpretation [x ] Patient assessment, examination and intervention [x] Medication orders and management [x] Patient/Family updates as able [x] Care Coordination and Documentation. Diagnoses Acute hyponatremia E87.1 Enterocolitis K52.9 Sepsis A41.9 Acute kidney injury N17.9 Exacerbation of Crohn's disease K50.90 Anemia D64.9 Anemia type: unspecified type Severe protein-energy malnutrition E43 Seizure R56.9 Substance abuse F19.10 Hematochezia K92.1 Acute dehydration E86.0 Elevated lactic acid level R79.89 Hypomagnesemia E83.42 High anion gap metabolic acidosis E87.29 Thrombocytopenia D69.6
[2023-09-05 08:03] LABS: Glucose Point of Care 99 mg/dL (70-110)
[2023-09-05] MEDS: pantoprazole 40 mg SDV IVP ×2 (08:28→20:45)
[2023-09-05] MEDS: AA-Dex 5%-20% w/Lytes 1,000 ML with multivitamin inj 10 ML 23 ML IV (09:29)
[2023-09-05] MEDS: FUROsemide 10 mg/mL SDV 4mL 40 MG IVP (11:59)
[2023-09-05] MEDS: sodium chloride 3% 100 ML in empty flexible container 1 EACH 200 ML IV (12:03)
[2023-09-05 14:39] LABS: Levetiracetam Immunoassy 22.1 mcg/mL (6.0-46.0)
[2023-09-05 15:50] LABS: Reflex FDPQ test REFLEX FDP QUEST TES
[2023-09-05 16:09] LABS: INR 1.57 (0.8-1.2)
[2023-09-05 16:10] LABS: Partial Thromboplastin Time 42.4 SECONDS (23.9-36.7)
[2023-09-05 16:13] LABS: Anion Gap 20.6 (5-19); Blood Urea Nitrogen 18 mg/dL (6-20); Calcium 6.9 mg/dL (8.5-10.5); Carbon Dioxide 17 mmol/L (22-29); Chloride 90 mmol/L (98-107); Glomerular Filtration Rate 27.1 mL/min (90-130); Glucose 136 mg/dL (65-115); Osmolality Calculated 262 mOsm/kg (285-295); Potassium 3.6 mmol/L (3.5-5.1); Sodium 124 mmol/L (136-145)
[2023-09-05 16:52] LABS: Fibrinogen 203 mg/dL (174-498)
--- NOTE | 2023-09-05 17:51 | PC.NURSE ---
BMP ordered for [address]. Call Dr. Hogan with results please
--- NOTE | 2023-09-05 21:13 | PC.NURSE ---
Reported left sided face and neck redness and swelling to Dr. Kelly.
[2023-09-05 21:52] LABS: Anion Gap 18.3 (5-19); Blood Urea Nitrogen 17 mg/dL (6-20); Calcium 7.2 mg/dL (8.5-10.5); Carbon Dioxide 19 mmol/L (22-29); Chloride 91 mmol/L (98-107); Glomerular Filtration Rate 30.4 mL/min (90-130); Glucose 156 mg/dL (65-115); Osmolality Calculated 265 mOsm/kg (285-295); Potassium 3.3 mmol/L (3.5-5.1); Sodium 125 mmol/L (136-145)
--- NOTE | 2023-09-05 22:21 | PC.NURSE ---
Reported BMP lab results to Dr. Hogan. Orders for potassium replacement.
[2023-09-05] MEDS: potassium chloride premix 100 ML 25 MEQ IV (22:41)
[2023-09-06] VITALS (168 sets, daily range): BP systolic 100–134; BP diastolic 63–92; PULSE 86–112; RESP 13–40; TEMP 36.4–36.8; O2SAT 4–98
[2023-09-06] MEDS: albumin 25 G/100 ML BAG 60 G IV ×2 (00:27→08:55)
[2023-09-06] MEDS: VANCOMYCIN PO ×2 (00:29→05:19)
[2023-09-06] MEDS: HYDROmorphone 1 mg/mL INJ 1 mL 0.4 MG IVP ×2 (03:29→10:15)
[2023-09-06] MEDS: piperacillin-tazobactam 3.375 GM in sodium chloride 0.9% (plus) 50 ML IV ×3 (03:30→19:57)
[2023-09-06 04:53] LABS: Alanine Aminotransferase 44 U/L (0-33); Albumin Level 2.5 g/dL (3.5-5.2); Alkaline Phosphatase 216 U/L (35-105); Anion Gap 15.6 (5-19); Aspartate Amino Transferase 32 U/L (0-32); Blood Urea Nitrogen 16 mg/dL (6-20); Calcium 7.5 mg/dL (8.5-10.5); Carbon Dioxide 20 mmol/L (22-29); Chloride 96 mmol/L (98-107); Globulin 1.9 g/dL (1.3-4.6); Glomerular Filtration Rate 37.1 mL/min (90-130); Glucose 226 mg/dL (65-115); Magnesium 1.9 mg/dL (1.7-2.3); Osmolality Calculated 274 mOsm/kg (285-295); Phosphorus 3.2 mg/dL (2.5-4.5); Potassium 3.6 mmol/L (3.5-5.1); Sodium 128 mmol/L (136-145); Total Bilirubin 1.9 mg/dL (0.15-1.2); Total Protein 4.4 g/dL (6.6-8.7)
[2023-09-06] MEDS: bismuth subsalicylate 240 mL Btl 15 ML PO (08:43)
[2023-09-06] MEDS: pantoprazole 40 mg SDV IVP ×2 (08:44→20:05)
[2023-09-06] MEDS: sodium chloride 0.9% 1,000 ML 100 ML IV (08:45)
[2023-09-06] MEDS: AA-Dex 5%-20% w/Lytes 1,000 ML with multivitamin inj 10 ML 63 ML IV (09:00)
[2023-09-06 10:44] LABS: Basophils % 0.3 %; Hematocrit 23.1 % (36-47); Lymphocytes # 0.7 10^3/uL (0.8-4.8); Lymphocytes % 8.4 %; Mean Corpuscular HGB Conc 30.3 g/dL (30-55); Mean Corpuscular Hemoglobin 28.1 pg (27-33); Mean Corpuscular Volume 92.8 fl (85-98); Mean Platelet Volume 10.2 fL (7.4-10.4); Monocytes # 0.3 10^3/uL (0.2-0.9); Monocytes % 3.4 %; Neutrophils # 7.18 10^3/uL (1.8-7.7); Neutrophils % 83.7 %; Nucleated Red Blood Cells % 0.2 %; Platelet Count 62 10^3/cmm (157-399); Red Blood Count 2.49 10^6/uL (3.85-5.65); Red Cell Distribution Width 17.8 % (12.1-15.1); White Blood Count 8.58 10^3/uL (3.29-11.43)
[2023-09-06 11:02] LABS: C Reactive Protein 23.3 mg/L (0.0-4.9)
[2023-09-06 11:14] LABS: Glucose Point of Care 307 mg/dL (70-110)
[2023-09-06 11:24] LABS: Slide Review Slide Review Perform
[2023-09-06] MEDS: sodium chloride 1 gm Tablet PO ×3 (12:53→19:59)
--- NOTE | 2023-09-06 15:05 | P.PN_ITS ---
Subjective Subjective: Today morning patient seen sitting up in recliner. Continues to be drowsy but wakes up to have complete conversation. On waking up states she is hungry and is complaining of abdominal pain. Denies any vomiting or nausea. Continues to have diarrhea but as per nursing staff no more hematochezia. Urine output seems to be improving. Documented urine output in last 24 hours around 3.5 L. Blood work appreciated for resolution of leukocytosis down to 8.5, hemoglobin down to 7 again today, platelet count trending down to 62,000, CMP showing sodium of 128, creatinine of 1.6, bilirubin of 1.9, AST/ALT of 32/44,-phosphorus of 216 Vitals/I&O/Wt Last Vital Signs Temp 97.9 F 09/05/23 19:00 Pulse 99 09/06/23 13:20 Resp 21 H 09/06/23 13:20 BP 124/83 09/06/23 13:20 Pulse Ox 90 09/06/23 13:20 O2 Del Method Room Air 09/06/23 08:00 O2 Flow Rate 4 09/04/23 04:14 09/06/23 09/06/23 09/06/23 06:59 14:59 22:59 Intake Total 151.28 / 3749.776 2771.613 / 2771.613 Output Total 1450 / 3550 Balance -1298.72 / 589.418 5608.613 / 2771.613 Physical Exam Narrative: General: No acute distress, less drowsy,answers questions appropriately on waking up, AO x3 HEENT: PERRLA, pupils bilaterally equal and reactive Chest: Normal vesicular breath sounds, no added sounds, equal good air entry bilaterally CVS: S1-S2 regular, no murmurs, tachycardia, no gallops, no rubs Abdomen: Soft, generalized tenderness, sluggish bowel sounds no organomegaly, Neuro: No focal deficits, no facial deformity, AO x3, moving all limbs Urinary Catheter Management: Melendrez: Cath Placed During This Visit: yes Reason for Continuing Indwelling Catheter: Accurate Measurement of Urinary Output in Critically Ill Patients Urinary Catheter Date of Insertion: 09/03/23 Urinary Catheter Time of Insertion: 17:55 Data 09/06/23 10:34 09/06/23 03:40 A&P Assessment and plan (1) Acute hyponatremia: (2) Enterocolitis: (3) Anemia: Qualifiers: Anemia type: unspecified type Qualified Code(s): D64.9 - Anemia, unspecified (4) Thrombocytopenia: (5) Sepsis: (6) Acute kidney injury: (7) High anion gap metabolic acidosis: (8) Exacerbation of Crohn's disease: (9) Severe protein-energy malnutrition: (10) Seizure: (11) Substance abuse: (12) Hematochezia: (13) Acute dehydration: (14) Elevated lactic acid level: (15) Hypomagnesemia: Plan 32 year old female with history of Crohn's disease diagnosed May 2023, depression anxiety presented with complaint of severe abdominal pain diffuse, 10 out of 10 crampy no aggravating or relieving factors associated with nausea vomiting and dizziness at home and found to have hemoglobin 8.5 WBC count 23.4 calcium 6.0 magnesium 1.6 sodium 120 creatinine 2.9 glucose [address] abdomen pelvis consistent with enterocolitis Sepsis: Ruled in insetting of elevated lactate, tachycardia, elevated white count, concerns for endorgan damage with renal failure. For now c/w Zosyn. C. difficile negative so we will stop oral vancomycin. Await further stool studies. Resolution of leukocytosis. Follow-up blood cultures. Keep mean artery pressure 65. Anemia: Most likely in setting of hematochezia. Hemoglobin trending down again to 7 today. Post 2 unit of blood transfusion. Will transfuse 2 units of PRBC more. Monitor hemoglobin daily for now. Protonix IV twice daily. Thrombocytopenia: Platelet count trending further down to 60,000. DIC panel negative. HIT panel awaited. Given mentation change of slight confusion, resolving THU to present on admission, development of mild hyperbilirubinemia with elevation of ALT cannot rule out TTP. Check Ruiz 13 activity, direct bilirubin, haptoglobin, LDH, reticulocyte count, direct Brendan, peripheral smear. Monitor daily. Hold off on transfusion for now. Acute hyponatremia: Improving. Corrected sodium level today morning 131. Unknown cause for now. Cannot rule out SIADH versus secondary dehydration versus possibly secondary to severe hypoalbuminemia. Improving appropriately. Decrease IV fluid to 50 cc/h. Recheck sodium levels in afternoon. Depending on sodium levels will plan for 3% infusion. Colitis: Appreciate CT abdomen pelvis results without contrast. For now continue with IV Zosyn. If patient's creatinine and urine output remained stable for next 24 hours with plan for CTA. Cannot rule out exacerbation of Crohn's though does not have a formal diagnosis for yet. Patient is currently not on steroids. CRP rechecked and trending down to 23. Continue with IV Solu-Medrol 1 mg/kg body weight every 12 hourly. Repeat BRONSON panel sent. Repeat lactic acid. Cannot rule out ischemic colitis though unfortunately cannot do CTA study given acute renal failure though overall clinical picture the patient improving so less likely. Acute renal failure: Resolved. Urine output improved. Medical reconciliation done for nephrotoxic drugs. Monitor urine output. Keep mean arterial pressure 65. Follow-up electrolytes daily including phosphorus and magnesium. Altered mental status: Most likely in setting of severe weakness, acute kidney injury with renal failure, severe hyponatremia with postictal status given seizure earlier in the morning. Substance abuse with amphetamine and cocaine also contributing. Continue to monitor. Seizure: Does not have past medical history of seizure disorder. Most likely in setting of amphetamine and cocaine abuse.Cannot rule out in setting of severe hyponatremia. Aspiration precaution, seizure precaution. Hold off on further Keppra for now Substance abuse: Urine drug screen from admission positive for amphetamines, benzos again in 12 hours postadmission positive for both amphetamines and cocaine. Patient after talking in detail does state that she has been using amphetamines and cocaine on and off to help with pain in last 1 week. Counseled in detail against using any further recreational drugs. High anion gap metabolic acidosis/elevated lactate Severe protein energy malnutrition: Albumin level improving. Continue with TPN. Appreciate dietitian recommendation. Albumin improved to 2.5. Stop IV albumin. Hypoglycemia: Hypoglycemia protocol. Blood sugar elevated now. Discussed with pharmacy. Will switch day TPN to 5% dextrose. Currently on 20%. Add insulin sliding scale on low-dose protocol before meals and at bedtime. Patient's care discussed in detail with her [id number] over the phone. Patient is full code. Advance to Mechanical soft Protonix for PUD prophylaxis SCDs for DVT prophylaxis. Attestations Medical Necessity Statement*: Requires further hospitalization for management of severe anemia, thrombocytopenia while TTP is ruled out and the patient was admitted for sepsis secondary to colitis with concern for acute exacerbation of Crohn's, resolving acute renal failure in setting of substance abuse, high protein energy malnutrition Coding Level of Care Code Critical Care >/= 30 minutes Critical care time (in minutes): 90 The high probability of a clinically significant, sudden or life threatening deterioration, as referenced in this documentation, required my full and direct attention, intervention and personal management. The critical care time shown is in addition to time spent performing any reported separately billable procedures and includes the following: [x] Data and vital sign review and interpretation [x ] Patient assessment, examination and intervention [x] Medication orders and management [x] Patient/Family updates as able [x] Care Coordination and Documentation. Diagnoses Acute hyponatremia E87.1 Enterocolitis K52.9 Anemia D64.9 Anemia type: unspecified type Thrombocytopenia D69.6 Sepsis A41.9 Acute kidney injury N17.9 High anion gap metabolic acidosis E87.29 Exacerbation of Crohn's disease K50.90 Severe protein-energy malnutrition E43 Seizure R56.9 Substance abuse F19.10 Hematochezia K92.1 Acute dehydration E86.0 Elevated lactic acid level R79.89 Hypomagnesemia E83.42
[2023-09-06 15:22] LABS: Reticulocyte % 1.9 % (0.5-2.0)
[2023-09-06 15:37] LABS: Anion Gap 13.4 (5-19); Blood Urea Nitrogen 15 mg/dL (6-20); Calcium 7.7 mg/dL (8.5-10.5); Carbon Dioxide 21 mmol/L (22-29); Chloride 95 mmol/L (98-107); Glomerular Filtration Rate 47.2 mL/min (90-130); Glucose 288 mg/dL (65-115); Lactate Dehydrogenase 406 U/L (135-214); Lactic Sepsis W/Reflex 3.2 mmol/L (0.5-2.2); Osmolality Calculated 273 mOsm/kg (285-295); Potassium 3.4 mmol/L (3.5-5.1); Sodium 126 mmol/L (136-145)
[2023-09-06 15:54] LABS: LAB Peripheral Smear Sent for Review
[2023-09-06 17:00] LABS: Reflex Lactate Order REFLEX LACTIC ORDERD
[2023-09-06 17:12] LABS: Glucose Point of Care 292 mg/dL (70-110)
[2023-09-06] MEDS: insulin lispro 100 unit/1 mL SUBCUT ×2 (17:16→19:58)
[2023-09-06 19:53] LABS: Glucose Point of Care 290 mg/dL (70-110)
[2023-09-06] MEDS: ALPRAZolam 0.5 mg Tablet 0.25 MG PO (20:00)
[2023-09-06] MEDS: ondansetron 2 mg/ML SDV 2 mL 4 MG IVP (20:13)
[2023-09-06] MEDS: HYDROmorphone 1 mg/mL INJ 1 mL 0.2 MG IVP (20:13)
[2023-09-06] MEDS: FUROsemide 10 mg/mL SDV 4mL 40 MG IVP (20:45)
--- NOTE | 2023-09-06 21:00 | PC.NURSE ---
[address] Kelly to report concerns about patient's respiratory status. Upon initial assessment patient had labored breathing, low O2, and wheezing throughout. Oxygen increased from 2L NC to 4L Oxy mask. It was reported that patient is in a positive fluid balance at this time and a second unit of blood is ready to be transfused. Dr. Kelly ordered 40 IV Lasix now. Will reassess respiratory status prior to initiation of second blood transfusion.
--- NOTE | 2023-09-06 21:32 | XRR_ITS ---
PROCEDURE INFORMATION: Exam: XR Chest Exam date and time: 09/06/2023 9:39 PM Age: 32 years old Clinical indication: Shortness of breath; Additional info: SOB TECHNIQUE: Imaging protocol: Radiologic exam of the chest. Views: 1 view. COMPARISON: CR (CHEST, ) 09/04/2023 4:38 AM FINDINGS: Tubes, catheters and devices: Right central venous catheter tip over the right atrium. Lungs: Patchy bilateral largely right hilar airspace infiltrates. Pleural spaces: Unremarkable. No pleural effusion. No pneumothorax. Heart/Mediastinum: Unremarkable. No cardiomegaly. Bones/joints: Unremarkable. XR/XR chest 1V portable [id number] IMPRESSION: 1. Patchy bilateral largely right hilar airspace infiltrates. 2. Right central venous catheter tip over the right atrium.
[2023-09-06 21:54] LABS: Hematocrit 27.3 % (36-47); Mean Corpuscular HGB Conc 30.8 g/dL (30-55); Mean Corpuscular Hemoglobin 27.8 pg (27-33); Mean Corpuscular Volume 90.4 fl (85-98); Mean Platelet Volume 11.1 fL (7.4-10.4); Platelet Count 71 10^3/cmm (157-399); Red Blood Count 3.02 10^6/uL (3.85-5.65); Red Cell Distribution Width 16.9 % (12.1-15.1); White Blood Count 10.71 10^3/uL (3.29-11.43)
[2023-09-06 22:04] LABS: Lactate (Lactic Acid level) 3.5 mmol/L (0.5-2.2)
[2023-09-06 22:09] LABS: Blood Urea Nitrogen 14 mg/dL (6-20); Calcium 7.9 mg/dL (8.5-10.5); Carbon Dioxide 23 mmol/L (22-29); Chloride 97 mmol/L (98-107); Glomerular Filtration Rate 63.9 mL/min (90-130); Glucose 254 mg/dL (65-115); Magnesium 1.9 mg/dL (1.7-2.3); Osmolality Calculated 279 mOsm/kg (285-295); Sodium 130 mmol/L (136-145)
[2023-09-06] MEDS: ipratropium-albuterol 3 mL Neb INHALATION (22:13)
[2023-09-06 22:14] LABS: Anion Gap 13.4 (5-19); Potassium 3.4 mmol/L (3.5-5.1)
[2023-09-06] MEDS: AA-Dex 4.25%-5% w/Lytes 1,000 ML with multivitamin inj 5 ML 83 ML IV (22:25)
[2023-09-06] MEDS: LORazepam 2 mg/mL INJ 1 mL 0.5 MG IVP (22:30)
[2023-09-06 22:49] LABS: Slide Review Slide Review Perform
[2023-09-06 22:50] LABS: Band Neutrophils Absolute 0.2 10^3/cmm (0.0-1.2); Basophils Absolute 0.1 10^3/cmm (0.0-0.2); Eosinophils 0 %; Lymphocytes 12 %; Lymphocytes Absolute 1.3 10^3/cmm (1.2-3.4); Monocytes Absolute 0.4 10^3/cmm (0.1-0.6); Segmented Neutrophils 75 %; Total Cells Counted 100 (0-100)
[2023-09-06 22:51] LABS: Absolute Neutrophil 8.2 10^3/cmm (1.4-6.5); Platelet Estimate Decreased (Normal)
--- NOTE | 2023-09-06 23:04 | PC.NURSE ---
[address] Kelly to report patient's increasing oxygen requirements and concern for fluid overload with transfusion of the second unit of blood. Labs and CXR ordered. 2149 Dr[address] Kelly at bedside. Orders to DC IVF. Orders for RT eval/treat and DuoNebs. 2204 At patient's request anxiety medicine was requested from Dr. Kelly. One time dose of Ativan ordered. [address] to Dr[address] Kelly. Orders to hold blood transfusion at this time. Orders for 40 MEQ IV KCL and 20 IV Lasix.
[2023-09-06] MEDS: potassium chloride premix 100 ML 25 MEQ IV (23:33)
[2023-09-06] MEDS: FUROsemide 10 mg/mL SDV 2mL 20 MG IVP (23:34)
[2023-09-07] VITALS (173 sets, daily range): BP systolic 96–129; BP diastolic 67–93; PULSE 75–131; RESP 14–56; TEMP 36.7–37.1; O2SAT 16–100
--- NOTE | 2023-09-07 01:19 | PC.NURSE ---
Patient took her oxygen off and her oxygen saturation dropped to 79%. O2 was increased to15L and Dr. Kelly notified at this time. Orders for BiPAP.
[2023-09-07] MEDS: HYDROmorphone 1 mg/mL INJ 1 mL 0.2 MG IVP ×5 (01:30→21:37)
[2023-09-07] MEDS: LORazepam 2 mg/mL INJ 1 mL 0.5 MG IM (01:45)
[2023-09-07 03:30] LABS: Basophils % 0.4 %; Hematocrit 28.7 % (36-47); Lymphocytes # 0.9 10^3/uL (0.8-4.8); Lymphocytes % 8.3 %; Mean Corpuscular HGB Conc 30.3 g/dL (30-55); Mean Corpuscular Hemoglobin 27.5 pg (27-33); Mean Corpuscular Volume 90.8 fl (85-98); Mean Platelet Volume 10.8 fL (7.4-10.4); Monocytes # 0.4 10^3/uL (0.2-0.9); Monocytes % 3.2 %; Neutrophils # 9.54 10^3/uL (1.8-7.7); Neutrophils % 84.1 %; Nucleated Red Blood Cells % 0 %; Platelet Count 59 10^3/cmm (157-399); Red Blood Count 3.16 10^6/uL (3.85-5.65); Red Cell Distribution Width 16.9 % (12.1-15.1); White Blood Count 11.33 10^3/uL (3.29-11.43)
[2023-09-07 03:54] LABS: Alanine Aminotransferase 51 U/L (0-33); Albumin Level 2.5 g/dL (3.5-5.2); Alkaline Phosphatase 367 U/L (35-105); Anion Gap 11.5 (5-19); Aspartate Amino Transferase 26 U/L (0-32); Blood Urea Nitrogen 13 mg/dL (6-20); Calcium 7.7 mg/dL (8.5-10.5); Carbon Dioxide 26 mmol/L (22-29); Chloride 96 mmol/L (98-107); Glomerular Filtration Rate 63.9 mL/min (90-130); Glucose 209 mg/dL (65-115); Magnesium 1.7 mg/dL (1.7-2.3); Osmolality Calculated 276 mOsm/kg (285-295); Phosphorus 1.8 mg/dL (2.5-4.5); Potassium 3.5 mmol/L (3.5-5.1); Sodium 130 mmol/L (136-145); Total Bilirubin 2.2 mg/dL (0.15-1.2); Total Protein 4.5 g/dL (6.6-8.7)
--- NOTE | 2023-09-07 04:00 | XRR_ITS ---
PROCEDURE INFORMATION: Exam: XR Chest Exam date and time: 09/07/2023 5:42 AM Age: 32 years old Clinical indication: Shortness of breath; Patient HX: Worsening SOB and hypoxia. On bipap with picc in place. ; Additional info: Low oxygen TECHNIQUE: Imaging protocol: Radiologic exam of the chest. Views: 1 view. COMPARISON: CR (CHEST, ) 09/06/2023 9:39 PM FINDINGS: Tubes, catheters and devices: Right IJ central venous catheter tip in the right atrium. Lungs: Bilateral perihilar interstitial/alveolar infiltrates. Pleural spaces: Unremarkable. No pleural effusion. No pneumothorax. Heart/Mediastinum: Unremarkable. No cardiomegaly. Bones/joints: Unremarkable. XR/XR chest 1V portable [id number] IMPRESSION: 1. Perihilar interstitial and alveolar infiltrates which have increased when compared to the prior examination. 2. Right IJ central venous catheter tip in the right atrium. Confirmation of adequate placement is recommended.
[2023-09-07] MEDS: piperacillin-tazobactam 3.375 GM in sodium chloride 0.9% (plus) 50 ML IV ×3 (04:06→19:55)
--- NOTE | 2023-09-07 07:18 | PC.NURSE ---
at shift change, patient went into a 20 beat run of Vtach. Came out of vtach with no interventions. Nurse alerted Dr bonilla and received orders for potassium, magnesium, and to change from bipap to hi flow.
[2023-09-07 08:02] LABS: Glucose Point of Care 221 mg/dL (70-110)
[2023-09-07] MEDS: insulin lispro 100 unit/1 mL SUBCUT ×4 (08:11→21:17)
[2023-09-07] MEDS: sodium chloride 1 gm Tablet PO ×3 (08:11→21:17)
[2023-09-07] MEDS: pantoprazole 40 mg SDV IVP ×2 (08:11→19:55)
[2023-09-07] MEDS: potassium chloride premix 100 ML 25 MEQ IV ×2 (08:12→17:25)
[2023-09-07] MEDS: magnesium sulfate premix 2 GM/50 ML PIGGYBACK IV (08:12)
[2023-09-07] MEDS: FUROsemide 10 mg/mL SDV 4mL 40 MG IVP ×2 (09:07→17:24)
[2023-09-07] MEDS: AA-Dex 4.25%-5% w/Lytes 1,000 ML with multivitamin inj 5 ML 83 ML IV (10:59)
[2023-09-07 12:46] LABS: Glucose Point of Care 213 mg/dL (70-110)
[2023-09-07] MEDS: methylPREDNISolone sod succ 40 MG in water for injection-sterile 1 ML 12 MG IVP (12:49)
[2023-09-07] MEDS: ALPRAZolam 0.5 mg Tablet 0.25 MG PO (14:37)
--- NOTE | 2023-09-07 14:59 | PC.NURSE ---
Patient has been up to a chair for about 3 hours but has started to complain about pain from the positioning and appears to be increasingly anxious. Nurse has explained importance of staying up in chair to exercise core muscles, expand lungs, and clear secretions. Patient still wants to get back to bed, but has agreed to get back up to a chair in 2 hours for dinner. After getting back to bed, nurse assisted the patient with IS and flutter valve which she was somewhat resistant to doing. Patient continues to be anxious and occasionally removes Hi janessa cannula which causes SPO2 to drop to 79%. PRN xanax administered and fan provided to patient. patient became more relaxed.
[2023-09-07 16:16] LABS: Anion Gap 10.4 (5-19); Blood Urea Nitrogen 13 mg/dL (6-20); Calcium 7.5 mg/dL (8.5-10.5); Carbon Dioxide 27 mmol/L (22-29); Chloride 95 mmol/L (98-107); Glomerular Filtration Rate 82.6 mL/min (90-130); Glucose 173 mg/dL (65-115); Osmolality Calculated 272 mOsm/kg (285-295); Potassium 3.4 mmol/L (3.5-5.1); Sodium 129 mmol/L (136-145)
--- NOTE | 2023-09-07 16:39 | P.PN_ITS ---
Subjective Subjective: Overnight patient went into respiratory distress for which she was transitioned to BiPAP and she was given 40 mg of IV Lasix after which she has put out 3.5 L of urine output. Today morning seen on heated high flow 35% 30%. Patient is more awake and alert. Able to have complete conversation. Denies any nausea or vomiting. Abdominal pain is better. As per the nursing staff less frequent di arrhea. No more hematochezia. Continues to remain tachycardic with heart rate running in the 110s. Blood work appreciated today morning for CBC with no leukocytosis, hemoglobin at 8.7, platelet of 59, CMP showing sodium improved to 130, creatinine of 1, potassium of 3.5, calcium of 7.7, phosphorus of 1.8, bilirubin of 2.2, ALT of 51, albumin improving to 2.5. Vitals/I&O/Wt Last Vital Signs Temp 98.2 F 09/07/23 13:10 Pulse 114 H 09/07/23 15:14 Resp 19 H 09/07/23 15:35 BP 106/71 09/07/23 13:10 Pulse Ox 16 L 09/07/23 15:35 O2 Del Method Heated High Flow 09/07/23 13:10 O2 Flow Rate 35 09/07/23 15:14 FiO2 35 09/07/23 15:14 09/07/23 09/07/23 09/07/23 06:59 14:59 22:59 Intake Total 51.28 / 4692.893 1632.067 / 1632.067 Output Total 3000 / 4850 1900 / 1900 Balance -2948.72 / -157.107 -267.933 / -267.933 Physical Exam Narrative: General: No acute distress, less drowsy,answers questions appropriately on waking up, AO x3 HEENT: PERRLA, pupils bilaterally equal and reactive Chest: Normal breath sounds all over lung calvert, coarse crackles present in left middle and lower zone CVS: S1-S2 regular, no murmurs, tachycardia, no gallops, no rubs Abdomen: Soft, generalized tenderness, sluggish bowel sounds no organomegaly, Neuro: No focal deficits, no facial deformity, AO x3, moving all limbs Urinary Catheter Management: Melendrez: Cath Placed During This Visit: yes Reason for Continuing Indwelling Catheter: Accurate Measurement of Urinary Outpu t in Critically Ill Patients Urinary Catheter Date of Insertion: 09/03/23 Urinary Catheter Time of Insertion: 17:55 Data 09/07/23 03:03 09/07/23 15:54 A&P Assessment and plan (1) Hypoxic respiratory failure: (2) Acute hyponatremia: (3) Enterocolitis: (4) Anemia: Qualifiers: Anemia type: unspecified type Qualified Code(s): D64.9 - Anemia, unspecified (5) Thrombocytopenia: (6) Sepsis: (7) Acute kidney injury: (8) High anion gap metabolic acidosis: (9) Exacerbation of Crohn's disease: (10) Severe protein-energy malnutrition: (11) Seizure: (12) Substance abuse: (13) Hematochezia: (14) Acute dehydration: (15) Elevated lactic acid level: (16) Hypomagnesemia: Plan 32 year old female with history of Crohn's disease diagnosed May 2023, depressi on anxiety presented with complaint of severe abdominal pain diffuse, 10 out of 10 crampy no aggravating or relieving factors associated with nausea vomiting and dizziness at home and found to have hemoglobin 8.5 WBC count 23.4 calcium 6.0 magnesium 1.6 sodium 120 creatinine 2.9 glucose 35 lactic [address] 7[address] abdomen pelvis consistent with enterocolitis Hypoxic respiratory failure: Most likely in setting of fluid overload. Patient is overall 10 L positive. Cannot rule out acute lung injury secondary to multiple blood transfusions versus possible aspiration pneumonia. Hold off on further chest imaging for now. Continue with IV diuresis. Hold off on IV fluids. For now patient getting TPN. Plan to wean TPN within next 24 hours. Strict input output charting, daily weights. Incentive spirometry, flutter valve. Out of bed to chair. Continue with antibiotics as below. Check sputum culture. Wean oxygen supplementation keeping saturation over 90%. Sepsis: Ruled in insetting of elevated lactate, tachycardia, elevated white count, concerns for endorgan damage with renal failure. For now c/w Zosyn. C. difficile negative so we will stop oral vancomycin. Await further stool studies. Resolution of leukocytosis. Follow-up blood cultures. Keep mean artery pressure 65. Anemia: Most likely in setting of hematochezia versus critical illness. Post failed blood transfusion. Hemoglobin responded appropriately. Reticulocyte count only 1.9 in setting of critical illness with anemia most likely relatively low. Haptoglobin normal, LDH mildly elevated. Monitor hemoglobin daily for now. Protonix IV twice daily. Thrombocytopenia: Platelet count trending further down to 60,000. DIC panel negative. HIT panel awaited. Given mentation change of slight confusion, resolving THU to present on admission, development of mild hyperbilirubinemia with elevation of ALT cannot rule out TTP. Ruiz 13 activity pending, direct bilirubin mildly elevated, haptoglobin normal, LDH mildly elevated, reticulocyte count relatively low, appreciate peripheral smear. Monitor daily. Hold off on transfusion for now. Acute hyponatremia: Improving to stable for now. Correct sodium for hyperglycemia. Unknown cause for now. Cannot rule out SIADH versus secondary dehydration versus possibly secondary to severe hypoalbuminemia. Holding off on fluids as above. On Lasix. Repeat BMP in afternoon. Continue with oral salt supplementation. Depending on sodium levels will plan for 3% infusion. Colitis: Appreciate CT abdomen pelvis results without contrast. For now continue with IV Zosyn. If patient's creatinine and urine output remained stable for next 24 hours with plan for CTA. Cannot rule out exacerbation of Crohn's though does not have a formal diagnosis for yet. Patient is currently not on steroids. CRP rechecked and trending down to 23. Decrease Solu-Medrol to 40 mg IV twice daily. BRONSON panel pending. Repeat lactic acid. Cannot rule out ischemic colitis though unfortunately cannot do CTA study given acute renal failure though overall clinical picture the patient improving so less likely. Acute renal failure: Resolved. Urine output improved. Medical reconciliation done for nephrotoxic drugs. Monitor urine output. Keep mean arterial pressure 65. Follow-up electrolytes daily including phosphorus and magnesium. Altered mental status: Resolved. Most likely in setting of severe weakness, acute kidney injury with renal failure, severe hyponatremia with postictal status given seizure earlier in the morning. Substance abuse with amphetamine and cocaine also contributing. Continue to monitor. Seizure: Does not have past medical history of seizure disorder. Most likely in setting of amphetamine and cocaine abuse.Cannot rule out in setting of severe hyponatremia. Aspiration precaution, seizure precaution. Hold off on further Keppra for now Substance abuse: Urine drug screen from admission positive for amphetamines, benzos again in 12 hours postadmission positive for both amphetamines and cocaine. Patient after talking in detail does state that she has been using amphetamines and cocaine on and off to help with pain in last 1 week. Counseled in detail against using any further recreational drugs. High anion gap metabolic acidosis/elevated lactate Severe protein energy malnutrition: Albumin level improving. Plan to wean off TPN in the next 24 hours. Oral diet with mechanical soft. Add protein shakes. Albumin stopped. Hypoglycemia: Hypoglycemia protocol. Blood sugar elevated now. Discussed with pharmacy. Will switch day TPN to 5% dextrose. Currently on 20% Add insulin sliding scale on low-dose protocol before meals and at bedtime. Patient's care discussed in detail with her [id number] over the phone. Patient is full code. Advance to Mechanical soft Protonix for PUD prophylaxis SCDs for DVT prophylaxis. Care discussed in detail with patient's mother and mother at bedside. All questions were answered. We discussed patient's diarrhea is resolving for now plan is to continue on IV prednisone for possible Crohn's flare. Discussed that patient will need to follow-up as an outpatient with gastroenterology. Discussed currently patient is sick from fluid overload in setting of resolving acute kidney injury, hyponatremia and mentation changes in setting of severe protein energy malnutrition and substance abuse in setting of amphetamines and cocaine. Patient remains critically sick. Attestations Medical Necessity Statement*: Requires hospitalization for management of hypoxic respiratory failure, thrombocytopenia, anemia requiring blood transfusion in setting of sepsis, colitis from possible Crohn's flare, substance abuse with amphetamines and cocaine Coding Level of Care Code Critical Care >/= 30 minutes Critical care time (in minutes): 70 The high probability of a clinically significant, sudden or life threatening deterioration, as referenced in this documentation, required my full and direct attention, intervention and personal management. The critical care time shown is in addition to time spent performing any reported separately billable procedures and includes the following: [x] Data and vital sign review and interpretation [x ] Patient assessment, examination and intervention [x] Medication orders and management [x] Patient/Family updates as able [x] Care Coordination and Documentation. Diagnoses Hypoxic respiratory failure J96.91 Acute hyponatremia E87.1 Enterocolitis K52.9 Anemia D64.9 Anemia type: unspecified type Thrombocytopenia D69.6 Sepsis A41.9 Acute kidney injury N17.9 High anion gap metabolic acidosis E87.29 Exacerbation of Crohn's disease K50.90 Severe protein-energy malnutrition E43 Seizure R56.9 Substance abuse F19.10 Hematochezia K92.1 Acute dehydration E86.0 Elevated lactic acid level R79.89 Hypomagnesemia E83.42
[2023-09-07 17:07] LABS: Glucose Point of Care 189 mg/dL (70-110)
--- NOTE | 2023-09-07 17:10 | ECG_ITS ---
[facility] Test Date: 2023-09-07 Pat Name: Elizabeth Adames Department: Room: [facility] Gender: Female Pet Caretaker: : 1990 Requested By: Edi Hogan Order Number: [id number] Bernice MD: Mally Pierce M.D. Measurements Intervals [facility] Rate: 119 P: 44 MI: 100 QRS: -1 QRSD: 90 T: -4 QT: 294 QTc: 414 Interpretive Statements SINUS TACHYCARDIA WITH SHORT MI INTERVAL POSSIBLE LEFT ATRIAL ENLARGEMENT [-0.1mV P-WAVE IN V1/V2] POSSIBLE ANTERIOR MYOCARDIAL INFARCTION , PROBABLY OLD [30 ms Q WAVE IN V3/V4, OR R < 0.2 mV IN V4] ABNORMAL RHYTHM ECG Compared to ECG 09/03/2023 22:43:01 Myocardial infarct finding now present Electronically Signed On 09-09-2023 10:51:46 CDT by Mally Pierce M.D. [id number]
--- NOTE | 2023-09-07 17:13 | USCV_ITS ---
Elizabeth Adames Age: 32 Gender: F : 1990 Exam Date: 09/07/2023 17:50 Ordering Phys: Edi Hogan MD Technologist: Sarthak Hugo Exam Location: [facility] Indication: playtypnea BP: 106 / 71 HR: 121 Rhythm: Sinus Technical Quality: Adequate MEASUREMENTS (Male / Female) Normal Values 2D ECHO LVOT Diameter 2.0 cm LV Ejection Fraction MOD 2C 61.4 % LV Ejection Fraction 2C AL 63.8 % LA Diameter 3.2 cm LA Width 3.0 cm LA Height 4.9 cm RA Width 3.2 cm RA Height 4.6 cm Aorta at Sinotubular Diameter 2.3 cm IVC Diameter 2.3 cm M-MODE Aortic Annulus Diameter 2.8 cm LA Ao Ratio MM 1.2 MV E Point Septal Separation 0.1 cm DOPPLER AV Peak Velocity 138.0 cm/s LVOT Peak Velocity 132.0 cm/s AV Area Cont Eq vti 3.1 cm squared AV Area Cont Eq pk 3.1 cm squared MV Peak Velocity 138.0 cm/s MV Area PHT 7.1 cm squared Mitral E to A Ratio 0.8 MV E' Velocity 70.0 cm/s Mitral E to LV E' Septal Ratio 9.0 TR Peak Velocity 336.4 cm/s TR Peak Gradient 45.3 mmHg TR Mean Velocity 245.4 cm/s TR Mean Gradient 27.5 mmHg TR Velocity Time Integral 84.8 cm Right Atrial Pressure 8.0 mmHg Pulmonary Artery Systolic Pressu 53.3 mmHg PV Peak Velocity 108.7 cm/s RV Acceleration Time 0.1 s RV Ejection Time 0.3 s RV AcT/ET 0.3 FINDINGS Left Ventricle Normal left ventricular size and wall thickness, with no regional wall motion abnormalities. Hyperdynamic left ventricular systolic function. Left ventricular ejection fraction is estimated at 75 %. Normal diastolic function. Right Ventricle Normal right ventricular size and systolic function. Right Atrium Normal right atrial size. Left Atrium Normal left atrial size. Mitral Valve Structurally normal mitral valve. No mitral valve stenosis. No mitral valve regurgitation. Aortic Valve Structurally normal trileaflet aortic valve. No aortic valve stenosis. No aortic valve regurgitation. Tricuspid Valve Structurally normal tricuspid valve. No tricuspid valve stenosis. Trace tricuspid valve regurgitation. Pulmonic Valve Structurally normal pulmonic valve. No pulmonary valve stenosis. No pulmonary valve regurgitation. Pericardium No pericardial effusion. Aorta Normal size aortic root and proximal ascending aorta. IVC Normal IVC dimension with >50% respiratory change of the inferior vena cava. CONCLUSIONS 1. Normal left ventricular size and wall thickness, with no regional wall motion abnormalities. Hyperdynamic left ventricular systolic function. Left ventricular ejection fraction is estimated at 75 %. Normal diastolic function. 2. No significant valvular abnormality. 3. No prior similar studies to compare. Mally Pierce MD (Electronically Signed) Final Date: 08 September 2023 11:21 S
--- NOTE | 2023-09-07 17:15 | PC.NURSE ---
Patient has been stating that it is easier for her to breath while laying down than sitting up. Not sure if this is reflected in oxygen saturations as she frequently takes off her nasal cannula. Nurse alerted Dr bonilla. received orders for Echocardiogram and EKG.
[2023-09-07] MEDS: potassium chloride ER 20 mEq Tablet 40 MEQ PO (17:25)
--- NOTE | 2023-09-07 18:42 | PC.NURSE ---
Shift SUmmary: Uneventful shift. Patient was up to a chair for about 5 hours today. Up to the bedside commode. 1 person assist for transitions. Has been on heater hi flow at 35L and 35%. Continues to have edema in the lower extremeties, mainly in the hips. Crackles developed on the left upper lung field. Patient reports difficulty breathing while sitting up and experiences relief when laying down prompting Dr bonilla to order ekg and echo, echo results pending. Total urine output is 3400 mL
[2023-09-07] MEDS: LORazepam 2 mg/mL INJ 1 mL 0.5 MG IVP (19:55)
[2023-09-07 21:07] LABS: Glucose Point of Care 166 mg/dL (70-110)
[2023-09-07] MEDS: diphenoxylate/atropine Tablet 2 TAB PO (23:39)
[2023-09-08] VITALS (36 sets, daily range): BP systolic 82–121; BP diastolic 47–93; PULSE 97–131; RESP 17–51; TEMP 36.6–37.2; O2SAT 91–100
[2023-09-08] MEDS: FUROsemide 10 mg/mL SDV 4mL 40 MG IVP (01:02)
[2023-09-08] MEDS: methylPREDNISolone sod succ 40 MG in water for injection-sterile 1 ML IVP ×3 (01:02→23:51)
--- NOTE | 2023-09-08 03:04 | PC.NURSE ---
At beginning of this nurse's shift the patient was anxious and kept pulling off her High Flow Nasal Cannula. The patient stated they could not tolerate it. Spo2 sats were dropping to the low 80s and request for Ativan was made by the patient. Dr. Kelly was notified and 0.5 mg of Ativan were ordered. Patient was still anxious and could not keep Cannula on. Respiratory therapist evaluated the patient and Bipap was put on. Patient was compliant and rested with Bipap on.
--- NOTE | 2023-09-08 03:14 | PC.NURSE ---
Metropolol ordered for patient but not given due to low blood pressure and heart rate improving with Bipap on. Dr Kelly was notified and approved.
[2023-09-08] MEDS: piperacillin-tazobactam 3.375 GM in sodium chloride 0.9% (plus) 50 ML IV (03:56)
[2023-09-08 04:41] LABS: Alanine Aminotransferase 64 U/L (0-33); Albumin Level 2.4 g/dL (3.5-5.2); Alkaline Phosphatase 473 U/L (35-105); Anion Gap 10.8 (5-19); Aspartate Amino Transferase 47 U/L (0-32); Blood Urea Nitrogen 12 mg/dL (6-20); Calcium 7.7 mg/dL (8.5-10.5); Carbon Dioxide 32 mmol/L (22-29); Chloride 93 mmol/L (98-107); Globulin 2.5 g/dL (1.3-4.6); Glomerular Filtration Rate 96.4 mL/min (90-130); Glucose 131 mg/dL (65-115); Magnesium 1.6 mg/dL (1.7-2.3); Osmolality Calculated 276 mOsm/kg (285-295); Phosphorus 1.4 mg/dL (2.5-4.5); Potassium 3.8 mmol/L (3.5-5.1); Sodium 132 mmol/L (136-145); Total Bilirubin 1.4 mg/dL (0.15-1.2); Total Protein 4.9 g/dL (6.6-8.7)
--- NOTE | 2023-09-08 05:46 | PC.NURSE ---
Upon arrival TPN IV pump was running at 30 mls/hr but it was charted in the MAR that the IV pump was running at 60 mls/hr. MAR was adjusted to represent this.
[2023-09-08 06:21] LABS: Glucose Point of Care 144 mg/dL (70-110)
[2023-09-08] MEDS: sodium chloride 1 gm Tablet PO ×3 (08:49→21:15)
[2023-09-08] MEDS: pantoprazole 40 mg SDV IVP ×2 (08:49→20:55)
[2023-09-08] MEDS: insulin lispro 100 unit/1 mL SUBCUT ×3 (08:49→20:56)
[2023-09-08] MEDS: HYDROmorphone 1 mg/mL INJ 1 mL 0.2 MG IVP ×2 (09:20→19:44)
--- NOTE | 2023-09-08 09:50 | CTR_ITS ---
PROCEDURE INFORMATION: Exam: CT Chest Without Contrast; Diagnostic Exam date and time: 09/08/2023 10:25 AM Age: 32 years old Clinical indication: Shortness of breath; Additional info: Hypoxic resp failure TECHNIQUE: Imaging protocol: Diagnostic computed tomography of the chest without contrast. Radiation optimization: All CT scans at this facility use at least one of these dose optimization techniques: automated exposure control; mA and/or kV adjustment per patient size (includes targeted exams where dose is matched to clinical indication); or iterative reconstruction. REPORTING DATA: Count of CT and Cardiac NM exams in prior 12 months: This patient has received 3 known CTs and 0 known cardiac nuclear medicine studies in the 12 months prior to the current study. COMPARISON: CR (CHEST, ) 09/07/2023 5:42 AM RADIATION DOSE METRICS: Total DLP (mGy-cm): 642.66 FINDINGS: Tubes, catheters and devices: Right internal jugular central venous catheter is seen with tip in the deep right atrium. Recommend clinical assessment. Trachea: The central airway appears unremarkable. Lungs: Normal lung volumes. Moderate to severe right upper lobe, moderate left upper lobe, moderate to severe right middle lobe, mild left lower lobe and mild right lower lobe ground-glass opacities are seen with some small regions of scattered consolidation (most prominent in the upper lobes). These findings are suggestive of multifocal pneumonia (possibly viral/COVID-19). Recommend correlation with clinical history and follow-up until resolution. Pleural spaces: Small left pleural effusion is seen. No right pleural effusion. No pneumothorax. Left Heart: The heart size appears normal on non-contrast imaging. No pericardial effusion. No coronary arterial atherosclerotic vascular calcifications. Lymph nodes: No enlarged lymph nodes visualized on non-contrast imaging. Vasculature: No aortic aneurysm. Bones/joints: No acute osseous abnormalities seen. Soft tissues: Mild to moderate upper body wall edema is seen, left more than right. Other findings: Severe fatty infiltration of the liver is seen. Some possible mild perihepatic ascites. The gallbladder is not distended, limiting assessment. CT/CT chest wo con [id number] IMPRESSION: 1. Moderate to severe right upper lobe, moderate left upper lobe, moderate to severe right middle lobe, mild left lower lobe and mild right lower lobe ground-glass opacities with some small regions of scattered consolidation (most prominent in the upper lobes). These findings are suggestive of multifocal pneumonia (possibly viral/COVID-19). Recommend correlation with clinical history and follow-up until resolution. 2. Small right pleural effusion. 3. Right internal jugular central venous catheter with tip in the deep right atrium. Recommend clinical assessment. 4. Severe fatty infiltration of the liver.
[2023-09-08 10:10] LABS: ABG PCO2 38.8 mmHg (35-45); ABG PH Result 7.51 (7.35-7.45); Alveolar-Arterial Oxygen Gradi 31.5 mmHg (5-10); Arterial Blood Gas Hematocrit 31.9 % (37-47); Base Excess ABG 7.4 mmol/L (-2.0-2.0); Blood Gas Allen Test Pos; Blood Gas Operator Identificat CAK; Blood Gas Sample Site Radial, left; Blood Gas Sample Type Arterial; Carboxyhemoglobin 0.2 %THgb (0.4-20.1); HCO3 ABG 30.9 mmol/L (22-26); HGB O2 Sat 96.2 % (95-100); Ionized Calcium Level - ABG 1.1 mmol/L (1.1-1.4); Methemoglobin 0.5 % (0.4-1.5); Oxygen Device HAG; Potassium Level - ABG 3.7 mmol/L (3.5-5.0); Total Hemoglobin 10.4 g/dL (12-16)
[2023-09-08] MEDS: FUROsemide 10 mg/mL SDV 10mL 80 MG IVP (11:18)
[2023-09-08] MEDS: metoprolol tartrate 1 mg/1 mL SDV 5 mL 5 MG IVP ×2 (11:18→16:00)
[2023-09-08 11:19] LABS: Vitamin B12 > 2000 pg/mL (232-1245)
[2023-09-08] MEDS: potassium phosphate (mMol PO4) 30 MMOL in sodium chloride 0.9% (100 ml) 100 ML 23.16 MMOL IV (11:23)
[2023-09-08] MEDS: magnesium sulfate premix 2 GM/50 ML PIGGYBACK IV (11:23)
[2023-09-08 11:58] LABS: Glucose Point of Care 119 mg/dL (70-110)
[2023-09-08] MEDS: diphenoxylate/atropine Tablet 2 TAB PO (12:21)
[2023-09-08] MEDS: ALPRAZolam 0.5 mg Tablet 0.25 MG PO (12:21)
[2023-09-08] MEDS: piperacillin-tazobactam 3.375 GM in sodium chloride 0.9% (plus) 50 ML 0.5 GM IV ×2 (12:23→20:55)
--- NOTE | 2023-09-08 12:59 | P.PN_ITS ---
Subjective Subjective: Overnight patient was on BiPAP 02/09 with 40% FiO2. Today morning she is on heated high flow been turned out 35 to 35% saturating more than 90%. Patient states she is feeling fine. Denies any nausea, pain, headache. Still complaining of abdominal pain though patient looks comfortable. Number of bowel movements have been decreasing as per nursing staff. No further hematochezia. Urine output documented last 24 hours around 4.5 L. Blood work CBC not resulted yet, CMP showing sodium improvement to 132, creatinine of 0.7, bicarb of 32, calcium improving to 7.7, hypomagnesemia with magnesium down to 1.6, phosphorus down to 1.4, bilirubin of 1.4 with AST/ALT of 47/64 with alkaline phosphatase of 473, albumin improving to 2.4. Vitals/I&O/Wt Last Vital Signs Temp 98 F 09/08/23 12:00 Pulse 102 H 09/08/23 12:00 Resp 28 H 09/08/23 12:00 BP 121/93 09/08/23 12:00 Pulse Ox 95 09/08/23 12:00 O2 Del Method Heated High Flow 09/08/23 11:00 O2 Flow Rate 40 09/08/23 12:00 FiO2 55 09/08/23 12:00 09/07/23 09/08/23 09/08/23 22:59 06:59 14:59 Intake Total 1555.667 / 4087.734 51 / 4138.734 1075.933 / 1075.933 Output Total 2500 / 4400 1800 / 6200 250 / 250 Balance -944.333 / -312.266 -1749 / -2061.266 825.933 / 825.933 Physical Exam Narrative: General: No acute distress, less drowsy,answers questions appropriately on waking up, AO x3 HEENT: PERRLA, pupils bilaterally equal and reactive Chest: Normal breath sounds all over lung calvert, coarse crackles present in left middle and lower zone CVS: S1-S2 regular, no murmurs, tachycardia, no gallops, no rubs Abdomen: Soft, generalized tenderness, sluggish bowel sounds no organomegaly, Neuro: No focal deficits, no facial deformity, AO x3, moving all limbs Urinary Catheter Management: Melendrez: Cath Placed During This Visit: yes Reason for Continuing Indwelling Catheter: Accurate Measurement of Urinary Output in Critically Ill Patients Urinary Catheter Date of Insertion: 09/03/23 Urinary Catheter Time of Insertion: 17:55 Data 09/07/23 03:03 09/08/23 03:36 A&P Assessment and plan (1) Hypoxic respiratory failure: (2) Acute hyponatremia: (3) Enterocolitis: (4) Anemia: Qualifiers: Anemia type: unspecified type Qualified Code(s): D64.9 - Anemia, unspecified (5) Thrombocytopenia: (6) Sepsis: (7) Acute kidney injury: (8) High anion gap metabolic acidosis: (9) Exacerbation of Crohn's disease: (10) Severe protein-energy malnutrition: (11) Seizure: (12) Substance abuse: (13) Hematochezia: (14) Acute dehydration: (15) Elevated lactic acid level: (16) Hypomagnesemia: Plan 32 year old female with history of Crohn's disease diagnosed May 2023, depression anxiety presented with complaint of severe abdominal pain diffuse, 10 out of 10 crampy no aggravating or relieving factors associated with nausea vomiting and dizziness at home and found to have hemoglobin 8.5 WBC count 23.4 calcium 6.0 magnesium 1.6 sodium 120 creatinine 2.9 glucose 35 lactic [address] 7[address] abdomen pelvis consistent with enterocolitis Hypoxic respiratory failure: Most likely in setting of fluid overload. Patient is overall 7 L positive. Cannot rule out acute lung injury secondary to multiple blood transfusions versus possible aspiration pneumonia. We will check CT chest today for further evaluation. Echocardiogram results shows normal EF. Weaning off TPN. Repeat IV Lasix 40 mg one-time. With repeat Lasix later in the day.Plan for around 1500 cc negative in next 24 hours. Strict input output charting, daily weights. Incentive spirometry, flutter valve. Out of bed to chair. Continue with antibiotics as below. Check sputum culture. Wean oxygen supplementation keeping saturation over 90%. Appreciate ABG. Cannot rule out baseline obstructive sleep apnea. Plan for CPAP at night. Sepsis: Ruled in insetting of elevated lactate, tachycardia, elevated white count, concerns for endorgan damage with renal failure. For now c/w Zosyn. C. difficile negative so we will stop oral vancomycin. Await further stool studies. Resolution of leukocytosis. Follow-up blood cultures. Keep mean artery pressure 65. Sinus tachycardia: Multifactorial. Most likely in setting of respiratory failure, critical illness along with physical deconditioning. Currently symptomatic. Start on metoprolol 25 mg twice daily. IV metoprolol 5 mg every 4 hours as needed for heart rate of more than 110 bpm. Hold for systolic blood pressure less than 100 mmHg. Echocardiogram results appreciated. Anemia: Most likely in setting of hematochezia versus critical illness. Post 3 units blood transfusion. Hemoglobin responded appropriately. Reticulocyte count only 1.9 in setting of critical illness with anemia most likely relatively low. Haptoglobin normal, LDH mildly elevated. Monitor hemoglobin daily for now. Protonix IV twice daily. Thrombocytopenia: Acute. DIC panel negative. HIT panel awaited. Given mentation change of slight confusion, resolving THU to present on admission, development of mild hyperbilirubinemia with elevation of ALT cannot rule out TTP. Ruiz 13 activity pending, direct bilirubin mildly elevated, haptoglobin normal, LDH mildly elevated, reticulocyte count relatively low, appreciate peripheral smear. Monitor daily. Hold off on transfusion for now. Acute hyponatremia: Improving to stable for now. Improved to 132 today. Unknown cause for now. Cannot rule out SIADH versus secondary dehydration versus possibly secondary to severe hypoalbuminemia. Getting Lasix today. Will repeat BMP at 4 PM Continue with oral salt supplementation. Colitis: Appreciate CT abdomen pelvis results without contrast. For now continue with IV Zosyn. Stool studies are still pending. C. difficile Negative. Continue with mechanical soft diet. If patient's creatinine and urine output remained stable for next 24 hours with plan for CTA. Cannot rule out exacerbation of Crohn's though does not have a formal diagnosis for yet. Patient is currently not on steroids. CRP rechecked and trending down to 23. Continue with Solu-Medrol to 40 mg IV twice daily. Plan to wean further within next 24 to 48 hours. BRONSON panel pending. Repeat lactic acid. Cannot rule out ischemic colitis though unfortunately cannot do CTA study given acute renal failure though overall clinical picture the patient improving so less likely. Acute renal failure: Resolved. Urine output improved. Medical reconciliation done for nephrotoxic drugs. Monitor urine output. Keep mean arterial pressure 65. Follow-up electrolytes daily including phosphorus and magnesium. Altered mental status: Resolved. Most likely in setting of severe weakness, acute kidney injury with renal failure, severe hyponatremia with postictal status given seizure earlier in the morning. Substance abuse with amphetamine and cocaine also contributing. Continue to monitor. Seizure: Does not have past medical history of seizure disorder. Most likely in setting of amphetamine and cocaine abuse.Cannot rule out in setting of severe hyponatremia. Aspiration precaution, seizure precaution. Hold off on further Keppra for now Substance abuse: Urine drug screen from admission positive for amphetamines, benzos again in 12 hours postadmission positive for both amphetamines and cocaine. Patient after talking in detail does state that she has been using amphetamines and cocaine on and off to help with pain in last 1 week. Counseled in detail against using any further recreational drugs. High anion gap metabolic acidosis/elevated lactate Severe protein energy malnutrition: Albumin level improving. Plan to wean off TPN in the next 24 hours. Oral diet with mechanical soft. Add protein shakes. Albumin stopped. Hypoglycemia: Hypoglycemia protocol. Blood sugar elevated now. Discussed with pharmacy. Will switch day TPN to 5% dextrose. Currently on 20% Add insulin sliding scale on low-dose protocol before meals and at bedtime. Patient's care discussed in detail with her [id number] over the phone. Patient is full code. Advance to Mechanical soft Protonix for PUD prophylaxis SCDs for DVT prophylaxis. Plan for the day: Wean oxygen supplementation keeping saturation over 88%. Aggressive pulmonary toilet with incentive spirometry and flutter valve. CT chest. Continue with DuoNebs every 6 hour, Pulmicort. Solu-Medrol 40 mg twice daily. Continue with Zosyn for now. IV Lasix 40 mg one-time. Weaning off TPN today. Fluid restriction up to 1500 cc. Will repeat Lasix during the day. Out of bed to chair. Monitor electrolytes and CBC in afternoon. Wean pain medication down to every 8 hourly. Patient showing symptoms consistent with possible refeeding syndrome. Replete magnesium 2 g, potassium phosphate 30 mg. Recheck magnesium and phosphorus daily. Awaiting CBC. Following up thrombocytopenia. Awaiting peripheral smear. Care discussed in detail with patient's mother and mother at bedside. All questions were answered. We discussed patient's diarrhea is resolving for now plan is to continue on IV prednisone for possible Crohn's flare. Discussed that patient will need to follow-up as an outpatient with gastroenterology. Discussed currently patient is sick from fluid overload in setting of resolving acute kidney injury, hyponatremia and mentation changes in setting of severe protein energy malnutrition and substance abuse in setting of amphetamines and cocaine. Patient remains critically sick. Continue with ICU care. Attestations Medical Necessity Statement*: Requires further hospitalization for management of acute hypoxic respiratory failure, heated high flow dependent, severe protein energy malnutrition with refeeding syndrome in a patient admitted for colitis with concerns for Crohn's flare, acute renal failure, altered mental status in setting of amphetamine and cocaine abuse Coding Level of Care Code Critical Care >/= 30 minutes Critical care time (in minutes): 80 The high probability of a clinically significant, sudden or life threatening deterioration, as referenced in this documentation, required my full and direct attention, intervention and personal management. The critical care time shown is in addition to time spent performing any reported separately billable procedures and includes the following: [x] Data and vital sign review and interpretation [x ] Patient assessment, examination and intervention [x] Medication orders and management [x] Patient/Family updates as able [x] Care Coordination and D ocumentation. Diagnoses Hypoxic respiratory failure J96.91 Acute hyponatremia E87.1 Enterocolitis K52.9 Anemia D64.9 Anemia type: unspecified type Thrombocytopenia D69.6 Sepsis A41.9 Acute kidney injury N17.9 High anion gap metabolic acidosis E87.29 Exacerbation of Crohn's disease K50.90 Severe protein-energy malnutrition E43 Seizure R56.9 Substance abuse F19.10 Hematochezia K92.1 Acute dehydration E86.0 Elevated lactic acid level R79.89 Hypomagnesemia E83.42
[2023-09-08] MEDS: levalbuterol 0.63 mg/3 mL Neb INHALATION ×2 (13:21→20:36)
[2023-09-08] MEDS: ipratropium 0.5 mg/2.5 mL Neb INHALATION ×2 (13:21→20:36)
[2023-09-08 14:27] LABS: Basophils % 0.2 %; Eosinophils % 0.1 %; Hematocrit 31.5 % (36-47); Lymphocytes # 1.9 10^3/uL (0.8-4.8); Lymphocytes % 9.2 %; Mean Corpuscular HGB Conc 30.8 g/dL (30-55); Mean Corpuscular Hemoglobin 27.4 pg (27-33); Mean Platelet Volume 11.4 fL (7.4-10.4); Monocytes # 0.7 10^3/uL (0.2-0.9); Monocytes % 3.3 %; Neutrophils # 17.36 10^3/uL (1.8-7.7); Neutrophils % 83.6 %; Nucleated Red Blood Cells % 0.1 %; Platelet Count 140 10^3/cmm (157-399); Red Blood Count 3.54 10^6/uL (3.85-5.65); Red Cell Distribution Width 17.3 % (12.1-15.1); White Blood Count 20.76 10^3/uL (3.29-11.43)
[2023-09-08 14:41] LABS: Anion Gap 11.1 (5-19); Blood Urea Nitrogen 13 mg/dL (6-20); Calcium 7.7 mg/dL (8.5-10.5); Carbon Dioxide 32 mmol/L (22-29); Chloride 91 mmol/L (98-107); Creatinine Clr Calc Pharmacy 148.4801; Glomerular Filtration Rate 115.1 mL/min (90-130); Glucose 153 mg/dL (65-115); Osmolality Calculated 273 mOsm/kg (285-295); Potassium 4.1 mmol/L (3.5-5.1); Sodium 130 mmol/L (136-145)
[2023-09-08 17:37] LABS: Glucose Point of Care 162 mg/dL (70-110)
--- NOTE | 2023-09-08 18:00 | PC.NURSE ---
TPN: Bag completed. TPN order discontinued as ordered.
--- NOTE | 2023-09-08 19:14 | PC.NURSE ---
Shift summary: Pt started the day off on BiPAp at 30%. She was switched to HHF 40l/55% this am and has progressed to using 3lpm/NC. She has been encouraged to use [place] and IS this am. SHe subsequently used them on her own volition. She just wanted to lie in bed and sleep. Encouraged to get out of bed to chair, she finally agreed. She did well with this, Sat up until 1530 then back to bed. She was willing and ready to get back out of bed at dinner time. She has ate well. TPN discontinued this evening. Afebrile. Sinus tach noted throughout the shift, even after PRN metoprolol. She had anxiety med this afternoon and one dose of Dilaudid this am. Her pain complaints are her upper abdomen. She did have 2 bouts of diarrhea this shift, Lomotil admin after the second. This nurse noted her abdominal pain complaints increased immediately after eating. Urine output of 2150 ml noted this shift. Central line patent , dressing, heplock caps and tubing changes done this shift.
[2023-09-08] MEDS: metoprolol tartrate 25 mg Tablet PO (20:56)
[2023-09-08 22:54] LABS: Glucose Point of Care 222 mg/dL (70-110)
[2023-09-09] VITALS (41 sets, daily range): BP systolic 81–131; BP diastolic 49–89; PULSE 91–131; RESP 16–50; TEMP 36.6–36.9; O2SAT 89–100
[2023-09-09] MEDS: piperacillin-tazobactam 3.375 GM in sodium chloride 0.9% (plus) 50 ML IV ×2 (03:47→11:46)
[2023-09-09 05:23] LABS: Basophils % 0.2 %; Eosinophils % 0.1 %; Lymphocytes # 1.7 10^3/uL (0.8-4.8); Lymphocytes % 13.4 %; Mean Corpuscular HGB Conc 30.7 g/dL (30-55); Mean Corpuscular Hemoglobin 27.8 pg (27-33); Mean Corpuscular Volume 90.3 fl (85-98); Mean Platelet Volume 11.1 fL (7.4-10.4); Monocytes # 0.4 10^3/uL (0.2-0.9); Monocytes % 2.9 %; Neutrophils # 10.07 10^3/uL (1.8-7.7); Neutrophils % 81.1 %; Nucleated Red Blood Cells % 0 %; Platelet Count 112 10^3/cmm (157-399); Red Blood Count 2.99 10^6/uL (3.85-5.65); Red Cell Distribution Width 17.8 % (12.1-15.1); White Blood Count 12.42 10^3/uL (3.29-11.43)
[2023-09-09 05:47] LABS: Alanine Aminotransferase 57 U/L (0-33); Albumin Level 2.1 g/dL (3.5-5.2); Alkaline Phosphatase 430 U/L (35-105); Anion Gap 8.3 (5-19); Aspartate Amino Transferase 34 U/L (0-32); Blood Urea Nitrogen 13 mg/dL (6-20); Calcium 7.4 mg/dL (8.5-10.5); Carbon Dioxide 34 mmol/L (22-29); Chloride 95 mmol/L (98-107); Globulin 2.3 g/dL (1.3-4.6); Glomerular Filtration Rate 142.1 mL/min (90-130); Glucose 109 mg/dL (65-115); Osmolality Calculated 277 mOsm/kg (285-295); Potassium 4.3 mmol/L (3.5-5.1); Sodium 133 mmol/L (136-145); Total Bilirubin 0.7 mg/dL (0.15-1.2); Total Protein 4.4 g/dL (6.6-8.7)
[2023-09-09 06:03] LABS: Folate Level 5.9 ng/mL (4.8-37.3)
[2023-09-09 06:06] LABS: Estmated Average Glucose 94; Hemoglobin A1C 4.9 % (4.0-6.0)
[2023-09-09] MEDS: ipratropium 0.5 mg/2.5 mL Neb INHALATION ×3 (08:13→19:46)
[2023-09-09] MEDS: levalbuterol 0.63 mg/3 mL Neb INHALATION ×3 (08:13→19:46)
[2023-09-09 08:16] LABS: Glucose Point of Care 121 mg/dL (70-110)
[2023-09-09] MEDS: sodium chloride 1 gm Tablet PO ×3 (09:28→20:00)
[2023-09-09] MEDS: metoprolol tartrate 25 mg Tablet PO ×2 (09:28→20:00)
[2023-09-09] MEDS: pantoprazole 40 mg SDV IVP (09:28)
[2023-09-09] MEDS: ALPRAZolam 0.5 mg Tablet 0.25 MG PO ×2 (09:35→20:05)
[2023-09-09 11:13] LABS: Glucose Point of Care 98 mg/dL (70-110)
[2023-09-09] MEDS: methylPREDNISolone sod succ 40 MG in water for injection-sterile 1 ML IVP (11:46)
--- NOTE | 2023-09-09 12:27 | P.PN_ITS ---
Subjective Subjective: Diagnosed with Crohn's disease on 07/11/2023 via colonoscopy and visual inspection. Patient started with abdominal pain 06/16/2023 she presented to the emergency room and discharged.She was seen by Dr. Sanchez in the office on 07/02/2023. ED GD was negative for cause of epigastric pain. Subsequently she returned to the ER on 07/10/2024. Colonoscopy was performed at that time. She was discharged home on 07/12/2023. She returned on 08/19/2023 and discharged on 08/21/2023. Current admission started on 09/03/2023 for abdominal pain diarrhea and bloody diarrhea. Patient was admitted secondary to enterocolitis to the ICU due to lactic acid elevation. She received IV fluids she was given Cipro and Flagyl IV as well as a PPI. 09/04/2023 patient was started on TPN for severe protein calorie malnutrition patient's received 2 units of blood. 09/07/2023. Patient started showing signs of fluid overload with lower extremity edema. Patient was given IV fluids, blood transfusion and TPN during hospitalization. She has received a few doses of Lasix during this hospitalization. 09/09/2023. Patient is seen sitting up in bed in the ICU with [id number] present. She is asking to be discharged home. Patient still has Melendrez catheter triple-lumen rapid respiratory rate and tachycardia. She reports feeling much better this is confirmed by nurse and [id number]. She reports more energy today interested in regular diet. She reports losing a son 2 years ago for which she is remaining very anxious and depressed. She states her home sertraline dose may not be treating it adequately. Vitals/I&O/Wt Last Vital Signs Temp 98.5 F 09/09/23 07:30 Pulse 97 09/09/23 11:00 Resp 25 H 09/09/23 11:00 BP 98/79 09/09/23 11:00 Pulse Ox 100 09/09/23 11:00 O2 Del Method Nasal Cannula 09/09/23 11:00 O2 Flow Rate 3 09/09/23 11:00 FiO2 55 09/08/23 16:00 09/08/23 09/09/23 09/09/23 22:59 06:59 14:59 Intake Total 1214.267 / 2340.200 354.433 / 2694.633 550 / 550 Output Total 1900 / 2150 600 / 2750 Balance -685.733 / 190.200 -245.567 / -55.367 550 / 550 Physical Exam Narrative: Young female in moderate distress due to to respiratory rate and tachycardia. Heart regular tachycardic no loud murmur click gallop or rub Lungs clear: Clear to auscultation without wheezes rales or rhonchi Abdomen diffusely tender very mild. Bowel sounds hyperactive extremities 2+ pitting edema to the knees. Urinary Catheter Management: Melendrez: Cath Placed During This Visit: yes Reason for Continuing Indwelling Catheter: Accurate Measurement of Urinary Output in Critically Ill Patients Urinary Catheter Date of Insertion: 09/03/23 Urinary Catheter Time of Insertion: 17:55 Data 09/09/23 04:38 09/09/23 04:38 Micro: Microbiology 09/04/23 01:45 E. coli Shiga-like Toxin (PCR) - Final Stool Salmonella/Shigella Culture - Final Campylobacter (PCR) - Final 09/03/23 16:40 Blood Culture - Final Blood NO GROWTH AFTER 5 DAYS 09/03/23 16:40 Blood Culture - Final Blood NO GROWTH AFTER 5 DAYS A&P Assessment and plan (1) Exacerbation of Crohn's disease: Diagnosed in June 2023. This is her third admission for Crohn's flare since diagnosed. She is on been on able to obtain a GI appointment until October with [facility] gastroenterology in [place]. (2) Acute GI bleeding: Due to severe Crohn's disease. Patient has received 4 units packed red blood cells (3) Sinus tachycardia: Likely multifactorial due to protein calorie malnutrition and electrolyte disturbances prednisone anxiety/depression and anemia (4) Hypomagnesemia: Monitor and replace as indicated Received 2 g yesterday for a result of 1.6. (5) Hypokalemia: Potassium has normalized. (6) Sepsis: Resolved (7) Severe protein-energy malnutrition: Nutrition to reeval now that TPN has been discontinued (8) Substance abuse: Counseled to quit (9) Hypoxic respiratory failure: Patient had episode of acute hypoxia last night requiring heated high flow and BiPAP. Patient now is on nasal cannula. 3 L. (10) Thrombocytopenia: Stable at 112 Plan Transfer to the floor. Changed to oral steroids and will continue at home until seen by GI. I personally called the [facility] gastroenterology office and spoke with Ai to see if we could move up patient's appointment. Otherwise patient will continue prednisone until seen. Nutrition to follow-up for high-protein diet. Will give albumin followed by Lasix to help with volume overload DC Melendrez Continue triple-lumen catheter for now. Increase mobility out of bed to chair for meals and frequent walking. Attestations Medical Necessity Statement*: Patient requires continue hospitalization due to acute respiratory failure yesterday continued complications from severe Crohn's disease and malnutrition. Coding Level of Care Code Acute Code for Chg Fwd Diagnoses Exacerbation of Crohn's disease K50.90 Acute GI bleeding K92.2 Sinus tachycardia R00.0 Hypomagnesemia E83.42 Hypokalemia E87.6 Sepsis A41.9 Severe protein-energy malnutrition E43 Substance abuse F19.10 Hypoxic respiratory failure J96.91 Thrombocytopenia D69.6
[2023-09-09] MEDS: albumin 25 G/100 ML BAG 60 G IV (13:19)
[2023-09-09 13:20] LABS: Magnesium 1.8 mg/dL (1.7-2.3); Phosphorus 2.9 mg/dL (2.5-4.5)
[2023-09-09 13:26] LABS: Prealbumin 8.9 mg/dL (20-40)
[2023-09-09] MEDS: FUROsemide 10 mg/mL SDV 4mL 40 MG IVP (14:44)
[2023-09-09 17:38] LABS: Glucose Point of Care 141 mg/dL (70-110)
[2023-09-09] MEDS: insulin lispro 100 unit/1 mL SUBCUT ×2 (17:45→20:01)
--- NOTE | 2023-09-09 19:22 | PC.NURSE ---
Shift summary: Pt's respiratory status much improved. She is using O2 at 3lpm/NC, her O2 sats have remained greater than 94% even with exertion. Her heart rate has been 90's -110 today. She remains afebrile. She remains seizure and syncopal free for 2 days now. She has been up to chair for all meals but refuses to stay sitting in chair, goes back to bed within 30 minutes of a meal. Her diet was changed to regular food, she is enjoying that more than the dysphasia 5 diet. She is more anxious today, using call light very frequently for all manner of things, ice, soda,questions, moving pillows and blankets, etc. She states she is ready to go home. She requested something for sleep tonight, Dr Benavides ordered Ativan 0.5 mg PO at bedtime. She received Albumin then Lasix this afternoon. Her urine output was 2850ml. She had 2 Bm today. She was incontinent of one BM this evening.
[2023-09-09 19:27] LABS: Glucose Point of Care 148 mg/dL (70-110)
[2023-09-09 19:30] LABS: Prealbumin 10.5 mg/dL (20-40)
[2023-09-10] VITALS (8 sets, daily range): BP systolic 97–108; BP diastolic 59–72; PULSE 0–112; RESP 16–18; TEMP 36.7–37.1; O2SAT 93–97
[2023-09-10 05:45] LABS: Magnesium 1.5 mg/dL (1.7-2.3); Phosphorus 2.5 mg/dL (2.5-4.5)
[2023-09-10] MEDS: albumin 50 G/200 ML BAG 60 G IV (06:34)
[2023-09-10] MEDS: sertraline 100 mg Tablet PO (06:34)
[2023-09-10] MEDS: FUROsemide 10 mg/mL SDV 4mL 40 MG IVP (06:34)
[2023-09-10 07:00] LABS: Glucose Point of Care 110 mg/dL (70-110)
[2023-09-10] MEDS: metoprolol tartrate 25 mg Tablet PO (08:57)
[2023-09-10] MEDS: sodium chloride 1 gm Tablet PO ×2 (08:58→15:56)
[2023-09-10 10:30] LABS: ADAMTS 13 Activity 0.49 IU/mL (0.68-1.63)
[2023-09-10 11:27] LABS: Glucose Point of Care 100 mg/dL (70-110)
--- NOTE | 2023-09-10 15:07 | PM.DCS ---
Discharge Providers Date of Admission: 09/03/23 20:35 Date of Discharge: September 10, 2023 Attending Provider at Admission: Gisela Kelyl MD Attending Provider at Discharge: Buddy Benavides DO Primary Care Provider: Kendrick Nascimento MD Diagnoses at Discharge Discharge Diagnosis (1) Exacerbation of Crohn's disease: Status: Acute (2) Acute GI bleeding: Status: Acute (3) Sinus tachycardia: Status: Acute (4) Hypomagnesemia: Status: Acute (5) Hypokalemia: Status: Acute (6) Sepsis: Status: Resolved (7) Severe protein-energy malnutrition: Status: Acute (8) Substance abuse: Status: Acute Permanent problem details: positive for meth and cocaine (9) Hypoxic respiratory failure: Status: Acute (10) Thrombocytopenia: Status: Acute Reason for Visit Reason for Visit: Syncopal episode Brief History: Patient is a 32-year-old female presents to ED today via EMS for evaluation of a syncopal episode.? Patient states she was walking when she became lightheaded and dizzy and passed out.? Patient states she has a history of Crohn's disease that was diagnosed a few months ago.? She states she has been having issues since with rectal bleeding requiring transfusions and lightheadedness/dizziness/passing out episodes. She reportedly has an appointment in October with a GI specialist.? Patient states she continues to have rectal bleeding and is not on any medications for her Crohn's at this time. She reports chronic diarrhea-10+ stools daily. She arrives to the ED pale, hypotensive, and tachycardic. Hospital Course Hospital Course It should be noted that patient was diagnosed with Crohn's disease on 07/11/2023 via [email or web address] and visual inspection after having abdominal pain which started on 06/16/2023. At that time she presented to the emergency room and discharged. She was seen by Dr. Sanchez in the office on 07/02/2023.? EGD was negative for cause of epigastric pain.? Subsequently she returned to the ER on 07/10/2024.? Colonoscopy was performed at that time which was positive for Crohn's disease and she was set up to see a GI specialist. She was discharged home on 07/12/2023.? She again returned on 08/19/2023 and discharged on 08/21/2023. Patient was not sent home on any medication to control Crohn's disease at any of these times. Current admission started on 09/03/2023 for abdominal pain diarrhea and bloody diarrhea.? Patient was admitted secondary to enterocolitis to the ICU due to lactic acid elevation.? She received IV fluids she was given Cipro and Flagyl IV as well as a PPI. 09/04/2023 patient was started on TPN for severe protein calorie malnutrition patient's received 2 units of blood. That night patient had a seizure-like activity. It was determined later that patient likely took cocaine in the hospital. Initially she was started on Keppra but that has been discontinued. Patient has a history of drug abuse likely related to severe anxiety and depression after the loss of her son 2 years ago. 09/07/2023.? Patient started showing signs of fluid overload with lower extremity edema.? Patient was given IV fluids, blood transfusion and TPN during hospitalization.? She has received a few doses of Lasix during this hospitalization. 09/09/2023.? Patient markedly improved but still requiring 4 L nasal cannula most likely due to fluid overload. She was given albumin with Lasix to follow x2 with significant improvement of her breathing, hypoxia and lower extremity edema. 09/10/2023: Patient is remarkably improved. She is responding well to the albumin and Lasix again this morning. Her lower extremity edema is markedly improved. She is in good spirits and excited to go home. She will be discharged on prednisone starting at 40 mg daily for 14 days, then 20 mg for 2 days, then 10 mg daily until seen by GI specialist at [facility]. She should take her proton pump inhibitor on an empty stomach.. She should avoid taking PPI and prednisone at the same time She states her home sertraline dose may not be treating her depression anxiety adequately. I would recommend counseling and EMDR for loss of child. Physical Exam Narrative: Young female in No acute distress. She is off oxygen Heart regular tachycardic no loud murmur click gallop or rub Lungs clear: Clear to auscultation without wheezes rales or rhonchi Abdomen diffusely tender very mild. Bowel sounds hyperactive extremities edema has improved still with 2+ pitting to mid calf Urinary Catheter Management: Melendrez: Cath Placed During This Visit: yes, but has since been removed by the nurse Reason for Continuing Indwelling Catheter: Decision to DC Catheter Urinary Catheter Date of Insertion: 09/03/23 Urinary Catheter Time of Insertion: 17:55 Date Urinary Catheter Removed: 09/09/23 Time Urinary Catheter Discontinued: 23:15 Discharge Data Studies Completed and Pending Completed Studies During Hospitalization Category Date Time Status CT abdomen pelvis wo con [id number] Stat Cat Scan 09/03/23 16:[address] chest wo con [id number] Stat Cat Scan 09/08/23 09:50 Completed XR chest 1V portable [id number] Routine Exams 09/07/23 04:00 Completed XR chest 1V portable [id number] Stat Exams 09/03/23 16:01 Completed XR chest 1V portable [id number] Stat Exams 09/04/23 04:18 Completed XR chest 1V portable [id number] Stat Exams 09/06/23 21:32 Completed XR chest 1V portable [id number] Urgent Exams 09/03/23 14:14 Completed CV. echo complete* [id number] Stat Ultrasound 09/07/23 17:13 Completed Pending at discharge Category Date Time Status Fibrinogen Degradation Product Routine Lab 09/05/23 15:50 Received Heparin Induced Thrombocytopen Urgent Lab 09/05/23 20:50 Received MAG [Magnesium] AM LABS Lab 09/11/23 04:00 Ordered OVA and Parasites, Conc and PE Routine Lab 09/03/23 17:12 Results PHOS [Phosphorus] AM LABS Lab 09/11/23 04:00 Ordered Salmonella / Shigella / Campy Routine Lab 09/03/23 17:12 Results Radiology Impressions Abdomen/Pelvis CT 09/03/23 16:02 IMPRESSION: 1. Enterocolitis, likely infectious or inflammatory. 2. Hepatomegaly with diffuse steatosis. 3. Nonobstructive left nephrolithiasis. Chest X-Ray 09/07/23 04:00 IMPRESSION: 1. Perihilar interstitial and alveolar infiltrates which have increased when compared to the prior examination. 2. Right IJ central venous catheter tip in the right atrium. Confirmation of adequate placement is recommended. Chest CT 09/08/23 09:50 IMPRESSION: 1. Moderate to severe right upper lobe, moderate left upper lobe, moderate to severe right middle lobe, mild left lower lobe and mild right lower lobe ground-glass opacities with some small regions of scattered consolidation (most prominent in the upper lobes). These findings are suggestive of multifocal pneumonia (possibly viral/COVID-19). Recommend correlation with clinical history and follow-up until resolution. 2. Small right pleural effusion. 3. Right internal jugular central venous catheter with tip in the deep right atrium. Recommend clinical assessment. 4. Severe fatty infiltration of the liver. Laboratory Results WBC 12.42 10^3/uL (3.29-11.43) H 09/09/23 04:38 RBC 2.99 10^6/uL (3.85-5.65) L 09/09/23 04:38 Hgb 8.30 g/dL (11.27-16.99) L 09/09/23 04:38 Hct 27.0 % (36-47) L 09/09/23 04:38 MCV 90.3 fl (85-98) 09/09/23 04:38 MCH 27.8 pg (27-33) 09/09/23 04:38 MCHC 30.7 g/dL (30-55) 09/09/23 04:38 RDW 17.8 % (12.1-15.1) H 09/09/23 04:38 Plt Count 112 10^3/cmm (157-399) L 09/09/23 04:38 MPV 11.1 fL (7.4-10.4) H 09/09/23 04:38 Neut % (Auto) 81.1 % 09/09/23 04:38 Lymph % (Auto) 13.4 % 09/09/23 04:38 [place] % (Auto) 2.9 % 09/09/23 04:38 Eos % (Auto) 0.1 % 09/09/23 04:38 Baso % (Auto) 0.2 % 09/09/23 04:38 Reticulocyte % (Auto) 1.9 % (0.5-2.0) 09/06/23 15:05 Neut # (Auto) 10.07 10^3/uL (1.8-7.7) H 09/09/23 04:38 Lymph # (Auto) 1.7 10^3/uL (0.8-4.8) 09/09/23 04:38 [place] # (Auto) 0.4 10^3/uL (0.2-0.9) 09/09/23 04:38 Eos # (Auto) 0.0 10^3/uL (0.0-0.8) 09/09/23 04:38 Baso # (Auto) 0.0 10^3/uL (0.0-0.1) 09/09/23 04:38 Nucleated RBC % (auto) 0 % 09/09/23 04:38 Total Counted 100 (0-100) 09/06/23 21:40 Atypical Lymphs % 0.0 % (0-5) 09/06/23 21:40 Absolute Neutrophils 8.2 10^3/cmm (1.4-6.5) H 09/06/23 21:40 Segmented Neutrophils 75 % 09/06/23 21:40 Abs Segm Neuts (Man) 8.0 10/cmm (1.6-7.1) H 09/06/23 21:40 Band Neutrophils 2.0 % 09/06/23 21:40 Abs Band Neuts (Man) 0.2 10^3/cmm (0.0-1.2) 09/06/23 21:40 Absolute Lymphocytes 1.3 10^3/cmm (1.2-3.4) 09/06/23 21:40 Lymphocytes (Manual) 12 % 09/06/23 21:40 Monocytes (Manual) 4.0 % 09/06/23 21:40 Absolute Monocytes 0.4 10^3/cmm (0.1-0.6) 09/06/23 21:40 Eosinophils (Manual) 0 % 09/06/23 21:40 Absolute Eosinophils 0.0 10^3/cmm (0.0-0.7) 09/06/23 21:40 Basophils (Manual) 1.0 % 09/06/23 21:40 Absolute Basophils 0.1 10^3/cmm (0.0-0.2) 09/06/23 21:40 Metamyelocytes 4.0 % 09/06/23 21:40 Myelocytes 2.0 % 09/06/23 21:40 Nucleated RBCs # 0.0 /100WBC 09/09/23 04:38 Platelet Estimate Decreased (Normal) L 09/06/23 21:40 Polychromasia 1+ H 09/03/23 14:52 Poikilocytosis 1+ H 09/03/23 14:52 Anisocytosis 1+ H 09/03/23 14:52 Macrocytosis 1+ H 09/03/23 14:52 Peripher Smr Path Cons Sent for review 09/06/23 15:05 Haptoglobin 125.0 mg/L (30-200) 09/06/23 15:05 PT 19.30 SECONDS (12.1-14.9) H 09/05/23 14:50 INR 1.57 (0.8-1.2) H 09/05/23 14:50 APTT 42.4 SECONDS (23.9-36.7) H 09/05/23 14:50 Fibrinogen 203 mg/dL (174-498) 09/05/23 14:50 D-Dimer 1.30 ug/mLFEU (0-0.59) H 09/05/23 14:50 [id number] Activity 0.49 IU/mL (0.68-1.63) L 09/06/23 15:05 Specimen Type Arterial 09/08/23 09:59 Sample Site Radial, left 09/08/23 09:59 ABG pH 7.51 (7.35-7.45) H 09/08/23 09:59 ABG pCO2 38.8 mmHg (35-45) 09/08/23 09:59 ABG pO2 102.0 mmHg (80.0-100.0) H 09/08/23 09:59 ABG HCO3 30.9 mmol/L (22-26) H 09/08/23 09:59 ABG O2 Saturation 97.0 09/08/23 09:59 ABG Base Excess 7.4 mmol/L (-2.0-2.0) H 09/08/23 09:59 Bryson Test Pos 09/08/23 09:59 A-a O2 Gradient 31.5 mmHg (5-10) H 09/08/23 09:59 Hematocrit 31.9 % (37-47) L 09/08/23 09:59 Hgb O2 Saturation 96.2 % (95-100) 09/08/23 09:59 Carboxyhemoglobin 0.2 %THgb (0.4-20.1) L 09/08/23 09:59 Methemoglobin 0.5 % (0.4-1.5) 09/08/23 09:59 Total Hemoglobin 10.4 g/dL (12-16) L 09/08/23 09:59 Sodium 131.0 mmol/L (131-143) 09/08/23 09:59 Potassium 3.7 mmol/L (3.5-5.0) 09/08/23 09:59 Glucose 134.0 mg/dL (70-115) H 09/08/23 09:59 Ionized Calcium 1.1 mmol/L (1.1-1.4) 09/08/23 09:59 O2 Delivery Device Hag 09/08/23 09:59 O2 Liters/Min 40.0 % 09/08/23 09:59 FiO2 55.0 % 09/08/23 09:59 Paradichlorobenzene Tender ID Cak 09/08/23 09:59 Sodium 133 mmol/L (136-145) L 09/09/23 04:38 Potassium 4.3 mmol/L (3.5-5.1) 09/09/23 04:38 Chloride 95 mmol/L (98-107) L 09/09/23 04:38 Carbon Dioxide 34 mmol/L (22-29) H 09/09/23 04:38 Anion Gap 8.3 (5-19) 09/09/23 04:38 BUN 13 mg/dL (6-20) 09/09/23 04:38 Creatinine 0.5 mg/dL (0.5-0.9) 09/09/23 04:38 GFR Calculation 142.1 mL/min (90-130) H 09/09/23 04:38 Glucose 109 mg/dL (65-115) 09/09/23 04:38 POC Glucose 100 mg/dL (70-110) 09/10/23 11:23 Estimat Average Glucose 94 09/09/23 04:38 Hemoglobin A1c 4.9 % (4.0-6.0) 09/09/23 04:38 Calculated Osmolality 277 mOsm/kg (285-295) L 09/09/23 04:38 Lactic Acid 3.2 mmol/L (0.5-2.2) H 09/06/23 15:05 Lactic Acid (Sepsis) 3.3 mmol/L (0.5-2.2) H 09/04/23 06:21 Lactate 3.5 mmol/L (0.5-2.2) H 09/06/23 21:40 Calcium 7.4 mg/dL (8.5-10.5) L 09/09/23 04:38 Phosphorus 2.5 mg/dL (2.5-4.5) 09/10/23 05:19 Magnesium 1.5 mg/dL (1.7-2.3) L 09/10/23 05:19 Total Bilirubin 0.7 mg/dL (0.15-1.2) 09/09/23 04:38 Direct Bilirubin 1.50 mg/dL (0.00-0.30) H 09/06/23 15:05 AST 34 U/L (0-32) H 09/09/23 04:38 ALT 57 U/L (0-33) H 09/09/23 04:38 Alkaline Phosphatase 430 U/L (35-105) H 09/09/23 04:38 Ammonia 83 umol/L (11-51) H 09/04/23 11:33 Lactate Dehydrogenase 406 U/L (135-214) H 09/06/23 15:05 Creatine Kinase 66 U/L (26-192) 09/03/23 16:40 Troponin T Gen 5 ng/L 59 ng/L (0-10) H 09/04/23 04:15 Troponin T Baseline 24 ng/L (0-10) H 09/03/23 14:52 Troponin T 120 Minute 19.93 ng/L (0-10) H 09/03/23 16:40 Delta Troponin T -4.07 ABS# (0-10) L 09/03/23 16:40 Troponin T Hi Sens 6Hr 86.84 ng/L (0-10) H 09/03/23 20:54 Troponin T Hi Sens 6Hr Delta 62.84 ng/L (0-12) H* 09/03/23 20:54 C-Reactive Protein 23.3 mg/L (0.0-4.9) H 09/06/23 10:34 Total Protein 4.4 g/dL (6.6-8.7) L 09/09/23 04:38 Albumin 2.1 g/dL (3.5-5.2) L 09/09/23 04:38 Globulin 2.3 g/dL (1.3-4.6) 09/09/23 04:38 Prealbumin 10.5 mg/dL (20-40) L 09/09/23 18:12 Vitamin B12 > 2000 pg/mL (232-1245) H 09/08/23 03:36 Folate 5.9 ng/mL (4.8-37.3) 09/09/23 04:38 Procalcitonin Cancelled 09/04/23 11:33 HCG, Qual Negative (Negative) 09/03/23 14:52 Urine Color Tara (Yellow) 09/03/23 17:00 Urine Appearance Cloudy (CLEAR) A 09/03/23 17:00 Urine pH 5 (5-7) 09/03/23 17:00 Ur Specific [place] 1.030 (1.005-1.030) 09/03/23 17:00 Urine Protein 1+ (Negative) H 09/03/23 17:00 Urine Glucose (UA) Norm (Normal) 09/03/23 17:00 Urine Ketones 1+ (Negative) H 09/03/23 17:00 Urine Blood Neg (Negative) 09/03/23 17:00 Urine Nitrate Negative (Negative) 09/03/23 17:00 Urine Bilirubin 2+ (Negative) H 09/03/23 17:00 Urine Urobilinogen 1 mg/dL (Negative) H 09/03/23 17:00 Ur Leukocyte Esterase Negative (Negative) 09/03/23 17:00 Urine RBC Rare /hpf (0-2) 09/03/23 17:00 Urine WBC 0-4 /hpf (0-5) H 09/03/23 17:00 Ur Squamous Epith Cells 0-4 /hpf (0-5) H 09/03/23 17:00 Amorphous Sediment 1+ /hpf 09/03/23 17:00 Urine Bacteria 1+ /hpf (NONE) H 09/03/23 17:00 Urine Mucus 1+ /hpf 09/03/23 17:00 Ur Random Sodium 30 mmol/L 09/04/23 12:34 Ur Random Potassium 35 mmol/L 09/04/23 12:34 Ur Random Chloride 24 mmol/L 09/04/23 12:34 Urine Creatinine 183 mg/dL (28-217) 09/04/23 12:34 Stl C. difficile Result See note 09/04/23 01:45 Urine Opiates Screen Positive ng/mL (Negative) H 09/04/23 12:34 Ur Barbiturates Screen Negative ng/mL (Negative) 09/04/23 12:34 Levetiracetam 22.1 mcg/mL (6.0-46.0) 09/04/23 06:21 Ur Phencyclidine Scrn Negative ng/mL (Negative) 09/04/23 12:34 Ur Amphetamines Screen Positive ng/mL (Negative) H 09/04/23 12:34 U Benzodiazepines Scrn Positive ng/mL (Negative) H 09/04/23 12:34 Urine Cocaine Screen Positive ng/mL (Negative) H 09/04/23 12:34 U Marijuana (THC) Screen Negative ng/mL (Negative) 09/04/23 12:34 LIS-1 Antibody TNP 09/04/23 11:38 SS-A/Ro IgG Antibody TNP 09/04/23 11:38 SS-B/La IgG Antibody TNP 09/04/23 11:38 Anti-nRNP/Sm IgG Ab TNP 09/04/23 11:38 Scl-70 Scleroderma Ab TNP 09/04/23 11:38 Anti-ds DNA IgG Ab TNP 09/04/23 11:38 Blood Type O Positive 09/06/23 15:05 Rho(D) Type Positive 09/06/23 15:05 Antibody Screen Negative 09/06/23 15:05 MARY, Poly Interpret Negative 09/06/23 15:05 Crossmatch See Detail 09/06/23 15:05 Vitals Last Vital Signs Temp 98.3 F 09/10/23 12:00 Pulse 102 H 09/10/23 13:10 Resp 18 09/10/23 13:10 BP 108/70 09/10/23 12:00 Pulse Ox 93 09/10/23 13:10 O2 Del Method Nasal Cannula 09/10/23 13:10 O2 Flow Rate 3 09/10/23 13:10 FiO2 55 09/08/23 16:00 Discharge Plan Discharge Patient Disposition: Home Condition: Stable Prescriptions: New prednisone 10 mg tablet 10 mg PO DIRECTED Qty: 100 0RF Rx Instructions: Take 4 tabs daily for 14 days, then 2 tabs daily for 14 days, then 1 tab daily until seen by GI specialist Continued sertraline 100 mg tablet 100 mg PO QAM alprazolam 0.5 mg tablet 0.5 mg PO BID PRN (Reason: Anxiety) pantoprazole [Protonix] 40 mg tablet,delayed release (DR/EC) 40 mg PO BID 42 Days Qty: 84 1RF ondansetron HCl 4 mg tablet 4 mg PO Q8H PRN (Reason: Nausea) iron 159 mg (45 mg iron) tablet extended release 159 mg PO DAILY Qty: 30 0RF sodium chloride 1,000 mg Tablet,Soluble 1 g PO BID 14 Days Qty: 28 0RF Discontinued sucralfate [Carafate] 1 gram tablet 1 g PO BID 28 Days Qty: 56 0RF Discharge Orders: Discharge Order (Routine); Ordered 09/10/23 Ordered By: Buddy Benavides Referrals: Kendrick Nascimento MD [Primary Care Provider] - 09/13/23 10:00 am Discharge Diet: As Directed Discharge Activity: Increase activity as tolerated Patient Instructions: Opioid Safety Activity Restrictions/Additional Instructions: Follow dietary recommendations per entry level programmer that saw you in the hospital. Avoid simple carbohydrates. Avoid juices. Juices are high in sugar content. Focus on increasing protein and vegetable intake. White foods are simple carbohydrates avoid all types of white food. Take pantoprazole on an empty stomach. This should be taken upon arising and then you may eat and take other medications 1 hour later. Take before bed after not eating anything for 2 hours. Do not take pantoprazole and prednisone at the same time. Discharge Attestations Time Spent in Discharge Care*: less than 30 min Status at Discharge: Cognitive status at discharge: cognitively intact, Behavioral status at discharge: cooperative, Quality Metrics Clinical Quality Measures [ No reported AMI, CVA or VTE this stay] Coding Level of Care Code Acute Code for Chg Fwd Diagnoses Exacerbation of Crohn's disease K50.90 Acute GI bleeding K92.2 Sinus tachycardia R00.0 Hypomagnesemia E83.42 Hypokalemia E87.6 Sepsis A41.9 Severe protein-energy malnutrition E43 Substance abuse F19.10 Hypoxic respiratory failure J96.91 Thrombocytopenia D69.6
[2023-09-11 01:04] LABS: Heparin Induced Platelet AB NEGATIVE (NEGATIVE); Patient O.D 0.109
[2023-09-12 02:48] LABS: UFH High Dose, 100 IU/ML 0 % release; UFH Low Dose, 0.1 IU/ML 0 % release; UFH Low Dose, 0.5 IU/ML 0 % release; UFH SRA Result NEGATIVE (NEGATIVE)
[2023-09-12 06:19] LABS: Fibrinogen Degradation Product <5 mcg/mL (LESS THAN 5)
== END 2023-09-10 16:03 | disposition home health service (06) | DRG 871 ==
LOC: ER 19:34 → ICU 09-04 06:01 → MEDSURG 09-09 22:46
PROVIDERS: Family Medicine; Physician Assistant; Student in an Organized Health Care Education/Training Program; Admitting Provider Internal Medicine; Emergency Provider Emergency Medicine; PCP Family Medicine; Visit Provider Internal Medicine
DX: A41.9 Sepsis, unspecified organism (principal); E43 Unspecified severe protein-calorie malnutrition; K51.00 Ulcerative (chronic) pancolitis without complications; N17.9 Acute kidney failure, unspecified; E87.1 Hypo-osmolality and hyponatremia; E87.20 Acidosis, unspecified; G40.89 Other seizures; Z68.29 Body mass index [BMI] 29.0-29.9, adult; F14.10 Cocaine abuse, uncomplicated; F15.10 Other stimulant abuse, uncomplicated; F41.9 Anxiety disorder, unspecified; F32.A Depression, unspecified; E87.70 Fluid overload, unspecified; Z87.891 Personal history of nicotine dependence; E83.42 Hypomagnesemia; E86.0 Dehydration; Z63.4 Disappearance and death of family member; D69.6 Thrombocytopenia, unspecified; E16.2 Hypoglycemia, unspecified; D64.9 Anemia, unspecified
CPT/HCPCS: 36415; 36416; 36430; 36556; 36592; 36600; 51702; 71045; 71250; 74176; 80048; 80051; 80053; 80177; 80306; 80503; 81001; 82140; 82248; 82274; 82330; 82436; 82550; 82570; 82607; 82746; 82805; 82962; 83010; 83036; 83605; 83615; 83630; 83735; 84100; 84133; 84134; 84145; 84295; 84300; 84484; 84703; 85007; 85025; 85045; 85362; 85378; 85384; 85397; 85610; 85730; 86140; 86225; 86235; 86850; 86880; 86900; 86920; 87040; 87045; 87177; 87209; 87324; 87427; 87449; 93005; 93306; 94640; 94660; 96365; 96367; 96372; 96375; 96376; 99285; C9113; J0610; J0744; J1170; J1815; J1940; J1953; J1956; J2060; J2270; J2405; J2543; J2550; J2920; J2930; J3370; J3475; J3480; J3490; J7030; J7042; J7131; J7614; J7644; P9016; P9040; P9046